=== PATIENT | male | born 1935 | race Caucasian/White ===

== ENCOUNTER → 2018-01-30 09:38 | Outpatient (CLI) | payer MEDICARE, OTHER, SELFPAY ==
[2018-01-30 10:34] LABS: Absolute Neutrophil Count 4.9 X10^3/uL (2.0-7.7); Eosinophil# 0.03 X10^3/uL; Eosinophils% 0.4 % (0-5); Hemoglobin 8.9 g/dl (13.0-16.5); Lymphocyte % 28.9 % (19-41); Mean Corp Hgb Conc 28.7 g/gl (32-36); Mean Corpuscular Hgb 24.7 pg (27.0-32.0); Mean Corpuscular Volume 85.9 fL (80-94); Mean Platelet Vol. 11.9 fl (6.2-12.0); Monocyte# 0.44 X10^3/uL; Monocyte% 5.8 % (0-10); Neutrophil # 4.93 X10^3/uL (2.7-7.7); Neutrophil % 64.6 % (47-70); Platelet Count 142 K/mm3 (150-450); RBC Distribution Width CV 18.2 % (11.6-14.6); Red Blood Count 3.61 M/mm3 (4.6-6.2); White Blood Count 7.6 K/mm3 (4.4-11.0)
[2018-01-30 10:36] LABS: Differential Indicated SCAN CRITERIA MET; POSITIVE COUNT NO; POSITIVE DIFFERENTIAL NO; POSITIVE MORPHOLOGY YES
[2018-01-30 11:08] LABS: AST(SGOT) 15 U/L (15-37); Alanine Aminotransfer ALT/SGPT 18 U/L (16-61); Albumin, Serum 3.4 g/dL (3.2-5.0); Alkaline Phosphatase 119 U/L (45-117); Anion Gap 9 (5-15); BUN 18 mg/dL (7-18); BUN/Creat Ratio 12.2 RATIO (10-20); Calcium,Total 8.7 mg/dL (8.5-10.1); Chloride 105 mmol/L (98-107); Cholesterol 100 mg/dL (200); Creatinine, Serum 1.48 mg/dL (0.70-1.30); EST Glomerular Filtration Rate 49 mL/min (>60); Est Glom Filt Rate - Afr Amer 59 mL/min (>60); Globulin 3.5 g/dL (2.2-4.2); Glucose 89 mg/dL (74-106); High Density Lipoprotein 45 mg/dL; Potassium 4.1 mmol/L (3.5-5.1); Protein, Total 6.9 g/dL (6.4-8.2); Sodium Level 140 mmol/L (136-145); Thyroid Stim Hormone (TSH) 1.59 uIU/mL (0.358-3.74); Triglycerides 62 mg/dL; Very Low Density Lipoprotein 12 mg/dL (5-40)
[2018-01-30 12:04] LABS: Anisocytosis 2+; Hypochromasia 1+; Schistocytes RARE
== END ==
PROVIDERS: Family Provider Family Medicine; PCP Family Medicine; Visit Provider Family Medicine
DX: Z00.01 Encounter for general adult medical examination with abnormal findings (principal); E03.9 Hypothyroidism, unspecified; E78.5 Hyperlipidemia, unspecified
CPT/HCPCS: 36415; 80053; 80061; 84443; 85025

== ENCOUNTER → 2018-02-04 10:37 | Outpatient (CLI) | payer MEDICARE, OTHER, SELFPAY ==
[2018-02-04 12:11] LABS: Absolute Lymphocyte Count 1.74 X10^3/ul (0.83-4.51); Absolute Neutrophil Count 5.9 X10^3/uL (2.0-7.7); Basophil# 0.01 X10^3/uL; Basophil% 0.1 % (0-1); Eosinophil# 0.02 X10^3/uL; Eosinophils% 0.2 % (0-5); Hemoglobin 9.2 g/dl (13.0-16.5); Lymphocyte # 1.74 X10^3/ul (4.0); Lymphocyte % 21.7 % (19-41); Mean Corp Hgb Conc 28.8 g/gl (32-36); Mean Corpuscular Hgb 24.8 pg (27.0-32.0); Mean Corpuscular Volume 86.3 fL (80-94); Mean Platelet Vol. 11.6 fl (6.2-12.0); Monocyte# 0.37 X10^3/uL; Monocyte% 4.6 % (0-10); Neutrophil # 5.87 X10^3/uL (2.7-7.7); Neutrophil % 73.3 % (47-70); Platelet Count 132 K/mm3 (150-450); RBC Distribution Width CV 18.5 % (11.6-14.6); RBC Distribution Width SD 58.2 fl (35.1-43.9); Red Blood Count 3.71 M/mm3 (4.6-6.2)
[2018-02-04 12:15] LABS: Differential Indicated SCAN CRITERIA MET; POSITIVE COUNT NO; POSITIVE DIFFERENTIAL NO; POSITIVE MORPHOLOGY YES
[2018-02-04 12:23] LABS: Vitamin B12 1225 pg/mL (211-911)
[2018-02-04 13:05] LABS: Ferritin 9 ng/mL (26-388); Iron 26 ug/dL (65-175); Iron Binding Capacity,Total 407 ug/dL (250-450); LDH 234 U/L (87-241)
== END ==
PROVIDERS: Family Provider Family Medicine; PCP Family Medicine; Visit Provider Family Medicine
DX: D64.9 Anemia, unspecified (principal)
CPT/HCPCS: 36415; 82607; 82728; 82746; 83540; 83550; 83615; 85025

== ENCOUNTER 2018-02-22 09:20 | Day surgery (SDC) | payer MEDICARE, OTHER, SELFPAY ==
--- NOTE | 2018-02-22 | COLBX_PTH ---
PATIENT: SHIRLEY MCKNIGHT LOC: EN U#:[id number] AGE/SX: 82/M ROOM: RE02/22/[address]: Dr. Jorge Mina MD : 1935 BED: DIS: 02/22/2018 SPEC #: [id number] RECD: 02/22/18 14:34 STATUS: NIURKA DIEGO #: [id number] CHIQUI: 02/22/18 00:[address]: Jorge Mina DEPT: SURGICAL PATHOLOGY RECD BY: Jaziel Mcdonough ENTERED: 02/22/18 14:34 SP TYPE: COLON BX OTHR DR: Dr. Yogesh Carlson DO Tissues: Sigmoid colon biopsy Procedures: Surgery Specimen Level IV HEADER OPERATION: Colonoscopy, EGD ([facility] [place]) PRE-OP DIAGNOSIS: Iron deficiency anemia TISSUE SUBMITTED: Sigmoid colon biopsies MICROSCOPIC DIAGNOSIS Sigmoid colon, biopsy: Chronic active colitis. See microscopic description and comment. SJ:sharon 10/15/18 COMMENT Correlation with clinical, endoscopic findings and appropriate follow up are necessary. MICROSCOPIC DESCRIPTION Slides are reviewed. The specimen shows fragments of colonic mucosa with acute and chronic inflammatory cell infiltrates in the lamina propria, mild glandular distortion, cryptitis, crypt abscesses and lymphoid aggregates. No evidence of dysplasia or granuloma in the submitted specimen. GROSS DESCRIPTION Received in fixative is one container labeled with the patient's name and designated sigmoid colon biopsy. The specimen consists of multiple irregular fragments of light garner soft tissue that in aggregate measure 1.5 x 0.5 x 0.1 cm. The specimen is totally submitted in one cassette. / SJ:sharon 02/22/18 TC:2 CPT: 45570
[2018-02-22 09:43] VITALS: BP 132/70; PULSE 85; RESP 16; TEMP 36.5; O2SAT 100; BMI 25.3
[2018-02-22 12:25] VITALS: BP 107/54; BP 132/70; PULSE 78; RESP 16; TEMP 36.3; O2SAT 100
--- NOTE | 2018-02-22 12:25 | OP.ENDO_ITS ---
Patient Name: Joon Malin Procedure Date: 02/22/2018 11:42 AM Date of : 1935 Age: 82 Procedure: Upper GI endoscopy Indications: Iron deficiency anemia Providers: Jorge Mina MD Referring MD: Jorge Mina MD Medicines: Monitored Anesthesia Care Patient Profile: This is an 82 year old male. Complications: No immediate complications. Procedure: Pre-Anesthesia Assessment: - Prior to the procedure, a History and Physical was performed, and patient medications and allergies were reviewed. The patient's tolerance of previous anesthesia was also reviewed. The risks and benefits of the procedure and the sedation options and risks were discussed with the patient. All questions were answered, and informed consent was obtained. Prior Anticoagulants: The patient has taken no previous anticoagulant or antiplatelet agents. After reviewing the risks and benefits, the patient was deemed in satisfactory condition to undergo the procedure. After obtaining informed consent, the endoscope was passed under direct vision. Throughout the procedure, the patient's blood pressure, pulse, and oxygen saturations were monitored continuously. The gastroscope was introduced through the mouth, and advanced to the second part of duodenum. The upper GI endoscopy was accomplished without difficulty. The patient tolerated the procedure well. Scope In: 11:50:22 AM Scope Out: 11:53:34 AM Total Procedure Duration Time 0 hours 3 minutes 12 seconds Findings: The esophagus was normal. The stomach was normal. The examined duodenum was normal. Impression: - Normal esophagus. - Normal stomach. - Normal examined duodenum. - No specimens collected. Recommendation: - Discharge patient to home. - Resume previous diet. - Continue present medications. Procedure Code(s): --- Professional --- 54839, Esophagogastroduodenoscopy, flexible, transoral; diagnostic, including collection of specimen(s) by brushing or washing, when performed (separate procedure) Diagnosis Code(s): --- Professional --- D50.9, Iron deficiency anemia, unspecified CPT copyright 2017 [employer]. All rights reserved. The codes documented in this report are preliminary and upon warhead maintenance specialist review may be revised to meet current compliance requirements. Jorge Mina MD 02/22/2018 12:24:52 PM This report has been signed electronically. Number of Addenda: 0 Note Initiated On: 02/22/2018 11:42 AM
[2018-02-22 12:30] VITALS: BP 100/59; BP 132/70; PULSE 72; RESP 16; O2SAT 100
--- NOTE | 2018-02-22 12:30 | OP.ENDO_ITS ---
Patient Name: Joon Malin Procedure Date: 02/22/2018 11:56 AM Date of : 1935 Age: 82 Procedure: Colonoscopy Indications: Iron deficiency anemia Providers: Jorge Mina MD Referring MD: Jorge Mina MD Medicines: Monitored Anesthesia Care Patient Profile: This is an 82 year old male. Last Colonoscopy: date unknown. Unable to locate last colonoscopy report. Complications: No immediate complications. Procedure: Pre-Anesthesia Assessment: - Prior to the procedure, a History and Physical was performed, and patient medications and allergies were reviewed. The patient's tolerance of previous anesthesia was also reviewed. The risks and benefits of the procedure and the sedation options and risks were discussed with the patient. All questions were answered, and informed consent was obtained. Prior Anticoagulants: The patient has taken no previous anticoagulant or antiplatelet agents. After reviewing the risks and benefits, the patient was deemed in satisfactory condition to undergo the procedure. After I obtained informed consent, the scope was passed under direct vision. Throughout the procedure, the patient's blood pressure, pulse, and oxygen saturations were monitored continuously. The pediatric colonoscope was introduced through the anus and advanced to the cecum, identified by appendiceal orifice and ileocecal valve. The colonoscopy was performed without difficulty. The patient tolerated the procedure well. The quality of the bowel preparation was adequate. Scope In: 11:58:06 AM Scope Withdrawal Time 0 hours 9 minutes 25 seconds Scope Out: 12:16:41 PM Total Procedure Duration Time 0 hours 18 minutes 35 seconds Findings: Multiple small and large-mouthed diverticula were found in the left colon. There was no evidence of diverticular bleeding. A localized area of moderately erythematous, friable (with contact bleeding) and inflamed mucosa was found in the sigmoid colon. Biopsies were taken with a cold forceps for histology. The exam was otherwise without abnormality on direct and retroflexion views. Impression: - Moderate diverticulosis in the left colon. There was no evidence of diverticular bleeding. - Erythematous, friable (with contact bleeding) and inflamed mucosa in the sigmoid colon. Biopsied. - The examination was otherwise normal on direct and retroflexion views. Recommendation: - Discharge patient to home. - Resume previous diet. - Continue present medications. - Await pathology results. - Repeat colonoscopy date to be determined after pending pathology results are reviewed for surveillance based on pathology results. - Physician's office will call you with pathology results and recommendations for when to repeat colonoscopy. Procedure Code(s): --- Professional --- 14853, Colonoscopy, flexible; with biopsy, single or multiple Diagnosis Code(s): --- Professional --- K63.89, Other specified diseases of intestine K92.2, Gastrointestinal hemorrhage, unspecified K52.9, Noninfective gastroenteritis and colitis, unspecified D50.9, Iron deficiency anemia, unspecified K57.30, Diverticulosis of large intestine without perforation or abscess without bleeding CPT copyright 2017 [employer]. All rights reserved. The codes documented in this report are preliminary and upon health information coder review may be revised to meet current compliance requirements. Jorge Mina MD 02/22/2018 12:29:37 PM This report has been signed electronically. Number of Addenda: 0 Note Initiated On: 02/22/2018 11:56 AM
[2018-02-22 12:35] VITALS: BP 125/68; BP 132/70; PULSE 68; RESP 16; O2SAT 99
[2018-02-22 12:40] VITALS: BP 113/72; BP 132/70; PULSE 64; RESP 16; TEMP 36.3; O2SAT 100
== END 2018-02-22 13:11 | disposition home or self-care (01) ==
LOC: EN 09:20 → AC 09:21
PROVIDERS: Family Provider Family Medicine; PCP Family Medicine; Referring Provider Surgery; Visit Provider Surgery
PROC: 0DJD8ZZ Inspection of Lower Intestinal Tract, Via Natural or Artificial Opening Endoscopic (ICD-10-PCS; CPT 45378; principal; 2018-02-22 10:25)
DX: K57.30 Diverticulosis of large intestine without perforation or abscess without bleeding (principal); D50.9 Iron deficiency anemia, unspecified; K52.9 Noninfective gastroenteritis and colitis, unspecified; K92.2 Gastrointestinal hemorrhage, unspecified; I10 Essential (primary) hypertension; E78.00 Pure hypercholesterolemia, unspecified; E03.9 Hypothyroidism, unspecified; K21.9 Gastro-esophageal reflux disease without esophagitis; F32.9 Major depressive disorder, single episode, unspecified; F41.9 Anxiety disorder, unspecified; Z79.899 Other long term (current) drug therapy; Z87.891 Personal history of nicotine dependence; Z87.19 Personal history of other diseases of the digestive system
CPT/HCPCS: 43235; 45380; 88305; J7120

== ENCOUNTER → 2018-02-25 18:07 | Outpatient (CLI) | payer MEDICARE, OTHER, SELFPAY ==
--- NOTE | 2018-02-25 18:00 | CT_ITS ---
STUDY: CT ABDOMEN AND PELVIS WITH CONTRAST REASON FOR EXAM: Male, 82 years old. Left lower quadrant pain. Colitis. RADIATION DOSAGE (If Supplied By Facility): CTDIvol = ( 17.13 ) mGy, DLP = ( 1543.14 ) mGycm TECHNIQUE: Transaxial images were obtained from the dome of the diaphragm to the symphysis pubis with oral contrast. 100ML ml of Isovue 300 contrast was administered. Sagittal and coronal images were reconstructed. Individualized dose optimization techniques were used for this CT. COMPARISON: None. FINDINGS: There is atelectasis at the lung bases. The visualized portions of the heart and pericardium are within normal limits. There are coronary artery calcifications noted. There are no calcified gallstones present. The liver is within normal limits. There are cysts noted in the liver. There are no suspicious hepatic lesions. The spleen is normal in size. There are calcified granulomata noted in the spleen. There is a subcentimeter hypodensity in the pancreas (image 36 series 2) which may represent an intraductal papillary mucinous neoplasm. The adrenal glands are within normal limits. There are no renal or ureteral stones. There is no hydronephrosis. There are no focal renal lesions. There is a urinary bladder diverticulum noted along the left bladder wall. There is a moderate hiatal hernia. There is no bowel obstruction. There is bowel wall thickening the sigmoid colon which is consistent with colitis. The appendix is not visualized, but there are no findings to suggest acute appendicitis. The aorta is normal in caliber. There is no abdominal or pelvic free air, free fluid, fluid collection or lymphadenopathy. There are no destructive osseous lesions. CT/Abdomen/Pelvis WITH Contrast IMPRESSION: Sigmoid colitis. No free air, free fluid or fluid collection. No bowel obstruction. Moderate hiatal hernia. Urinary bladder diverticulum. Subcentimeter hypodensity in the body of the pancreas which may represent an IPMN. Coronary artery disease. Electronically Signed: Skyler Guajardo, at 19:34 EDT Tel , Service support ,
== END ==
PROVIDERS: Family Provider Family Medicine; PCP Family Medicine; Visit Provider Surgery
DX: K52.9 Noninfective gastroenteritis and colitis, unspecified (principal)
CPT/HCPCS: 74177; Q9967

== ENCOUNTER → 2018-03-04 13:45 | Outpatient (CLI) | payer MEDICARE, OTHER, SELFPAY ==
[2018-03-04 17:12] LABS: Absolute Lymphocyte Count 2.61 X10^3/ul (0.83-4.51); Absolute Neutrophil Count 6.9 X10^3/uL (2.0-7.7); Basophil# 0.01 X10^3/uL; Basophil% 0.1 % (0-1); Eosinophil# 0.01 X10^3/uL; Eosinophils% 0.1 % (0-5); Hematocrit 33.9 % (40-54); Hemoglobin 9.6 g/dl (13.0-16.5); Lymphocyte # 2.61 X10^3/ul (4.0); Lymphocyte % 26.1 % (19-41); Mean Corp Hgb Conc 28.3 g/gl (32-36); Mean Corpuscular Hgb 25.3 pg (27.0-32.0); Mean Corpuscular Volume 89.2 fL (80-94); Mean Platelet Vol. 12.1 fl (6.2-12.0); Monocyte# 0.47 X10^3/uL; Monocyte% 4.7 % (0-10); Neutrophil # 6.89 X10^3/uL (2.7-7.7); Neutrophil % 68.8 % (47-70); Platelet Count 219 K/mm3 (150-450); RBC Distribution Width CV 19.4 % (11.6-14.6); RBC Distribution Width SD 62.2 fl (35.1-43.9)
[2018-03-04 17:20] LABS: POSITIVE COUNT NO; POSITIVE DIFFERENTIAL NO; POSITIVE MORPHOLOGY NO
== END ==
PROVIDERS: Family Provider Family Medicine; PCP Family Medicine; Referring Provider Surgery; Visit Provider Surgery
DX: D64.9 Anemia, unspecified (principal)
CPT/HCPCS: 36415; 85025

== ENCOUNTER → 2018-04-15 11:18 | Outpatient (CLI) | payer MEDICARE, OTHER, SELFPAY ==
[2018-04-15 17:38] LABS: Absolute Lymphocyte Count 2.08 X10^3/ul (0.83-4.51); Absolute Neutrophil Count 6.1 X10^3/uL (2.0-7.7); Basophil# 0.01 X10^3/uL; Basophil% 0.1 % (0-1); Differential Indicated SCAN CRITERIA MET; Eosinophil# 0.04 X10^3/uL; Eosinophils% 0.5 % (0-5); Hematocrit 36.2 % (40-54); Hemoglobin 10.6 g/dl (13.0-16.5); Lymphocyte # 2.08 X10^3/ul (4.0); Mean Corp Hgb Conc 29.3 g/gl (32-36); Mean Corpuscular Volume 98.9 fL (80-94); Mean Platelet Vol. 12.9 fl (6.2-12.0); Monocyte# 0.41 X10^3/uL; Monocyte% 4.7 % (0-10); Neutrophil # 6.11 X10^3/uL (2.7-7.7); Neutrophil % 70.5 % (47-70); POSITIVE COUNT NO; POSITIVE DIFFERENTIAL NO; POSITIVE MORPHOLOGY YES; Platelet Count 115 K/mm3 (150-450); RBC Distribution Width CV 22.1 % (11.6-14.6); Red Blood Count 3.66 M/mm3 (4.6-6.2); White Blood Count 8.7 K/mm3 (4.4-11.0)
[2018-04-15 17:53] LABS: Differential Comment SCANNED
[2018-04-15 18:55] LABS: Ferritin 26 ng/mL (26-388); Iron 118 ug/dL (65-175)
--- OUTSIDE RECORDS SUMMARY | 2018-06-08 17:20 | XMS RPT_ITS ---
:1935 Author Organization OHIP Support Name Relationship Address Phone RONNA RUBIO Unavailable [address] + [place] [address] HEAVEN MALIN Unavailable [address] + [place] [address] R Unavailable Unavailable Unavailable LOCOHODA RONNA Unavailable [address] + [place] [address] HEAVEN MALIN Unavailable [address] + [place] [address] R Unavailable Unavailable Unavailable LOCOHODA RONNA Unavailable [address] + [place] [address] REYMUNDO MALNIE Unavailable [address] + [place] [address] R Unavailable Unavailable Unavailable JOANNE RONNA Unavailable . + [place] [address] HEAVEN MALIN Unavailable [address] + [place] [address] R Unavailable Unavailable Unavailable JOANNE, RONNA Unavailable Unavailable + TOMHEAVEN MURGUIA Unavailable [address] + [place] [address] R Unavailable Unavailable Unavailable LOCOHODA, RONNA Unavailable Unavailable + HEAVEN MALIN Unavailable [address] + [place] [address] R Unavailable Unavailable Unavailable JOANNE, RONNA Unavailable Unavailable + TOMREYMUNDO MURGUIAE Unavailable [address] + [place] [address] R Unavailable Unavailable Unavailable MOWRER, W Unavailable [address] + [place] [address] R Unavailable Unavailable Unavailable MOWRER, W Unavailable [address] + [place] [address] R Unavailable Unavailable Unavailable MOWRER, W Unavailable [address] [facility] + [place] [address] R Unavailable Unavailable Unavailable Care Team Providers Name Role Phone Yogesh Carlson Attending Unavailable Yogesh Carlson Referring Unavailable AldoYogesh lee Primary Care Unavailable Yogesh Carlson Attending Unavailable Yogesh Carlson Primary Care Unavailable Calevelyn, Jorge Attending Unavailable Yogesh Carlson Referring Unavailable Calabretta, Jorge Attending Unavailable Calabrwesley, Jorge Referring Unavailable Yogesh Carlson Primary Care Unavailable Calabretta, Jorge Attending Unavailable Aldo, Yogesh Primary Care Unavailable Calabretta, Jorge Attending Unavailable Calabretta, Jorge Attending Unavailable Yogesh Carlson Referring Unavailable Calabretta, Jorge Attending Unavailable Calabrwesley, Jorge Referring Unavailable Yogesh Carlson Primary Care Unavailable Calabretta, Jorge Attending Unavailable Aldo, Yogesh Referring Unavailable Yogesh Carlson Attending Unavailable Aldo, Yogesh Primary Care Unavailable PROBLEMS PROBLEMS DATE TYPE CONDITION / CODE ATTENDING STATUS SOURCE 02/26/2018 Unknown K52.9 - Noninfective Cal[place], Active [place] gastroenteritis and [facility] colitis, unspecified / Hospital K52.9(ICD-10) Repository 02/26/2018 Unknown D50.9 - Iron Calabretta, Active [place] deficiency anemia, [facility] unspecified / Hospital D50.9(ICD-10) Repository 02/26/2018 Unknown K92.2 - Cal[place]retta, Active [facility] hemorrhage, Hospital unspecified / Repository K92.2(ICD-10) 02/26/2018 Unknown K63.89 - Other [place]ta, Active [place] specified diseases of [facility] intestine / Hospital K63.89(ICD-10) Repository 02/26/2018 Unknown K57.30 - [place], Active [place] Diverticulosis of [facility] large intestine Hospital without perforation or Repository abscess without bleeding / K57.30(ICD-10) 01/30/2018 Unknown Z00.01 - Encounter for Yogesh Carlson Active [place] [facility] examination with Hospital abnormal findings / Repository Z00.01(ICD-10) 01/30/2018 Unknown E03.9 - Yogesh Carlson Active [place] Hypothyroidism, Community unspecified / Hospital E03.9(ICD-10) Repository 01/30/2018 Unknown E78.5 - Yogesh Carlson Active [place] Hyperlipidemia, Community unspecified / Hospital E78.5(ICD-10) Repository PROCEDURES PROCEDURES No Procedure Records FoundRESULTS RESULTS CBC W/DIFF, AUTOMATED Collected: 04/15/2018 Status: F Source: [place] 11:20 AM [facility] [place] CODE TESTS RESULT OUT OF RANGE REFERENCE UNITS LAB L100.1000 4.4-11.0 K/mm3 Normal WBC 8.7 LAB L100.1200 4.6-6.2 M/mm3 Low RBC 3.66 LAB L100.1300 13.0-16.5 g/dl Low HGB 10.6 LAB L100.1400 40-54 % Low HCT 36.2 LAB L100.1500 80-94 fL High MCV 98.9 LAB L100.1600 27.0-32.0 pg Normal MCH 29.0 LAB L100.1700 32-36 g/gl Low MCHC 29.3 LAB L100.1810 11.6-14.6 % High RDW CV 22.1 LAB L100.1820 35.1-43.9 fl High RDW SD 77.0 LAB L100.1900 150-450 K/mm3 Low PLT 115 LAB L100.2000 6.2-12.0 fl High MPV 12.9 LAB L100.2100 47-70 % High NEUT% 70.5 LAB L100.2200 19-41 % Normal LY% 24.0 LAB L100.2300 0-10 % Normal MONO% 4.7 LAB L100.2400 0-5 % Normal EO% 0.5 LAB L100.2500 0-1 % Normal BASO% 0.1 LAB L100.2550 0.0-0.9 % Normal IM GRAN % 0.200 Result Comment: IG% - Immature Granulocytes (promyelocytes, myelocytes and metamyelocytes) > 1% indicates that a LEFT SHIFT is Present. LAB L100.2620 2.0-7.7 X10 3/uL Normal Absolute Neut 6.1 LAB L100.2720 0.83-4.51 X10 3/ul Normal Absolute Lymph 2.08 LAB L100.4500 Normal SMEAR COMMENT SCANNED Result Comment: 2+ ANISOCYTOSIS Performed By: #### L100.0100 #### [facility] [place], [address] IRON Collected: 04/15/2018 Status: F Source: [place] 11:20 AM [facility] [place] TYPE CODE TESTS RESULT OUT OF RANGE REFERENCE UNITS LAB L503.6150 65-175 ug/dL Normal IRON 118 Performed By: #### L503.6150, L503.6550 #### [facility] [address] [place], [address] FERRITIN Collected: 04/15/2018 Status: F Source: [place] 11:20 AM [facility] [place] TYPE CODE TESTS RESULT OUT OF RANGE REFERENCE UNITS LAB L503.6550 26-388 ng/mL Normal FERRITIN 26 Performed By: #### L503.6150, L503.6550 #### [facility] [address] [place], [address] SURGERY VISIT REPORT Observed: 03/06/2018 Status: F Source: [place] 10:11 AM [facility] [place] [facility] [address] [place] [address] OFFICE VISIT Date of Service: 02/27/18 MR#: [id number] Acct: [id number] Name: SHIRLEY MALIN Nabeel Rep #: [id number] : 1935 Provider: Jorge Mina MD Age/Sex: 82/M Location: [facility] Status: Signed Intake Intake Visit Reasons: f/u scope and CT Reed Dipper Required: No Is patient in pain?: No Allergies cefdinir [From Omnicef] Allergy (Verified 02/27/18 10:40) Rash Medications Atorvastatin Calcium 80 mg PO QHS 11/17/16 [History Confirmed 02/27/18] Cholecalciferol (Vitamin D3) [Vitamin D3] 2,000 unit PO DAILY 11/17/16 [History Confirmed 02/27/18] Citalopram [Celexa] 20 mg PO DAILY 11/17/16 [History Confirmed 02/27/18] Donepezil HCl [Aricept] 10 mg PO QHS 11/17/16 [History Confirmed 02/27/18] Levothyroxine Sodium [Levoxyl] 125 mcg PO DAILY 11/17/16 [History Confirmed 02/27/18] Omeprazole [Prilosec] 40 mg PO DAILY 11/17/16 [History Confirmed 02/27/18] Metoprolol(XL)Succ [Toprol Xl (Beta [place])] 50 mg PO DAILY 11/24/16 [History Confirmed 02/27/18] dibucaine 1 % rectal ointment 1 applic RC TID PRN #56.7 g 02/27/18 [Rx Confirmed 02/27/18] ferrous sulfate 325 mg (65 mg iron) tablet 325 mg PO DAILY tab 03/06/18 [History Confirmed 03/06/18] PFSH Medical History Anemia (Acute) GERD (gastroesophageal reflux disease) (Acute) Heme positive stool (Acute) Hypothyroid (Acute) hypercholesterolemia (Acute) HTN (hypertension) (Chronic) Surgical History S/P TURP (Acute) Family History Mother Breast cancer Father Heart disease Social History Smoking Status: Former smoker alcohol intake: never HPI HPI HPI: SHIRLEY MALIN, is a 82 M who presents to the office today for follow-up after colonoscopy. Exam Const General: cooperative Orientation: alert, oriented x3 Resp Effort AND Inspection: normal respiratory effort Auscultation: clear to auscultation bilaterally Cardio Rate: regular rate Rhythm: regular rhythm GI Inspection: non-distended Palpation: soft, nontender Assessment AND Plan Problems 1. Colitis K52.9 Plan 1. Patient has colitis and I explained sigmoid colectomy to him and he is going to discuss this with his family. Orders Orders: Medications New: Coding Level of Care Code Global Post Op Diagnoses Colitis K52.9 03/06/18 1011 <Electronically signed by Jorge Mina MD> Date Jorge Mina MD Cosigner Signature: Date (if applicable) CC: SURGERY VISIT REPORT Observed: 03/06/2018 Status: F Source: [place] 10:06 AM [facility] [place] [place] [facility] [address] [place] [address] OFFICE VISIT Date of Service: 03/06/18 MR#: [id number] Acct: [id number] Name: SHIRLEY MALIN Rep #: [id number] : 1935 Provider: Jorge Mina MD Age/Sex: 82/M Location: [facility] Status: Signed Intake Intake Visit Reasons: FU scope and CT Chief Complaint: S/P TURP Reed Dipper Required: No Accompanied by: Is patient in pain?: No Allergies cefdinir [From Omnicef] Allergy (Verified 02/27/18 10:40) Rash Medications Atorvastatin Calcium 80 mg PO QHS 11/17/16 [History Confirmed 02/27/18] Cholecalciferol (Vitamin D3) [Vitamin D3] 2,000 unit PO DAILY 11/17/16 [History Confirmed 02/27/18] Citalopram [Celexa] 20 mg PO DAILY 11/17/16 [History Confirmed 02/27/18] Donepezil HCl [Aricept] 10 mg PO QHS 11/17/16 [History Confirmed 02/27/18] Levothyroxine Sodium [Levoxyl] 125 mcg PO DAILY 11/17/16 [History Confirmed 02/27/18] Omeprazole [Prilosec] 40 mg PO DAILY 11/17/16 [History Confirmed 02/27/18] Metoprolol(XL)Succ [Toprol Xl (Beta Israel)] 50 mg PO DAILY 11/24/16 [History Confirmed 02/27/18] dibucaine 1 % rectal ointment 1 applic RC TID PRN #56.7 g 02/27/18 [Rx Confirmed 02/27/18] ferrous sulfate 325 mg (65 mg iron) tablet 325 mg PO DAILY tab 03/06/18 [History Confirmed 03/06/18] PFSH Medical History Anemia (Acute) GERD (gastroesophageal reflux disease) (Acute) Heme positive stool (Acute) Hypothyroid (Acute) hypercholesterolemia (Acute) HTN (hypertension) (Chronic) Surgical History S/P TURP (Acute) Family History Mother Breast cancer Father Heart disease Social History Smoking Status: Former smoker alcohol intake: never HPI HPI HPI: SHIRLEY MALIN, is a 82 M who presents to the office today for evaluation after colonoscopy. The patient recently had a colonoscopy which showed stricturing of the sigmoid colon. The patient is not reporting he is having any left lower quadrant pain or blood in his stool. ROS General General: No weight change or fatigue Cardio Cardiovascular: No murmur, pacemaker or heart disease Psych Psychiatric: No depression Resp Respiratory: No shortness of breath, No sleep apnea Gastro Gastrointestinal: No abdominal pain, No nausea or vomiting, No diarrhea, No constipation, No blood in stool Exam Const General: cooperative Orientation: alert, oriented x3 Resp Effort AND Inspection: normal respiratory effort Auscultation: clear to auscultation bilaterally Cardio Rate: regular rate Rhythm: regular rhythm Heart Sounds: no murmurs GI Inspection: non-distended Palpation: soft, nontender Assessment AND Plan Problems 1. Colitis K52.9 Plan 1. The patient has colitis of his sigmoid colon on CT scan. On colonoscopy the patient had tightening of the sigmoid colon with friability of the mucosa. I explained this to the patient and discussed possible sigmoid colectomy with him and his . I explained that this may be the cause of his anemia as the mucosa is friable. I repeated a hemoglobin and in the last month his hemoglobin has risen from 9.2-9.6 and he had not been taking his iron pills. His baseline seems to be around 12 which is what he was at the last 2 years in a row. 2. I explained that the sigmoid colon appeared strictured on the CAT scan and it was tight on colonoscopy but comparing this to a colonoscopy that was done 7 years ago it appears the same. The patient was concerned that this could fully obstruction I told him that I did not know if this was going to happen. I explained that it may stricture and causing complete obstruction necessitating diverting ostomy in the future but since it is the same amount of tightness as 7 years ago I am unsure if this will progress or not. I explained the risks of surgery including bleeding, infection, ureteral injury, injury to surrounding organs. The patient discussed this with his family and kids and at this time he does not want to proceed with surgery. 3. I will discuss with Dr. Carlson, patient's PCP. I will discuss repeating hemoglobin and that he will be starting his iron treatment. If his anemia worsens or if he begins to have worsening left lower quadrant pain or signs of partial obstruction I would recommend sigmoid colectomy. Jorge Mina MD Pager: [facility] [address] [place] [address], [address] [place] [address] Office: Coding Level of Care Code Off vis,est,level 3 Diagnoses Colitis K52.9 03/06/18 1006 <Electronically signed by Jorge Mina MD> Date Jorge Mina MD Cosigner Signature: Date (if applicable) CC: Yogesh Carlson DO CBC W/DIFF, AUTOMATED Collected: 03/04/2018 Status: F Source: [place] 1:53 PM [facility] [place] [place] TYPE CODE TESTS RESULT OUT OF RANGE REFERENCE UNITS LAB L100.1000 4.4-11.0 K/mm3 Normal WBC 10.0 LAB L100.1200 4.6-6.2 M/mm3 Low RBC 3.80 LAB L100.1300 13.0-16.5 g/dl Low HGB 9.6 LAB L100.1400 40-54 % Low HCT 33.9 LAB L100.1500 80-94 fL Normal MCV 89.2 LAB L100.1600 27.0-32.0 pg Low MCH 25.3 LAB L100.1700 32-36 g/gl Low MCHC 28.3 LAB L100.1810 11.6-14.6 % High RDW CV 19.4 LAB L100.1820 35.1-43.9 fl High RDW SD 62.2 LAB L100.1900 150-450 K/mm3 Normal PLT 219 LAB L100.2000 6.2-12.0 fl High MPV 12.1 LAB L100.2100 47-70 % Normal NEUT% 68.8 LAB L100.2200 19-41 % Normal LY% 26.1 LAB L100.2300 0-10 % Normal MONO% 4.7 LAB L100.2400 0-5 % Normal EO% 0.1 LAB L100.2500 0-1 % Normal BASO% 0.1 LAB L100.2550 0.0-0.9 % Normal IM GRAN % 0.200 Result Comment: IG% - Immature Granulocytes (promyelocytes, myelocytes and metamyelocytes) > 1% indicates that a LEFT SHIFT is Present. LAB L100.2620 2.0-7.7 X10 3/uL Normal Absolute Neut 6.9 LAB L100.2720 0.83-4.51 X10 3/ul Normal Absolute Lymph 2.61 Performed By: #### L100.0100 #### [facility] [address] [facility] [place], [address] ABDOMEN/PELVIS WITH Observed: 02/25/2018 Status: F Source: [place] CONTRAST 6:01 PM [facility] [place] [facility] Imaging Services [address] [place] [address] Abdomen/Pelvis WITH Contrast MR#: [id number] Acct: [id number] Name: DEVYNDANNIELLESHIRLEY MURGUIA Nabeel Rep #: [id number] : 1935 M 82 From: Skyler Guajardo MD PCP: Yogesh Carlson DO Status: REG CLI Study: Abdomen/Pelvis WITH Contrast Date of Exam: 02/25/18 Exam# [id number] Ordering Dr: Jorge Mina MD STUDY: CT ABDOMEN AND PELVIS WITH CONTRAST REASON FOR EXAM: Male, 82 years old. Left lower quadrant pain. Colitis. RADIATION DOSAGE (If Supplied By Facility): CTDIvol = ( 17.13 ) mGy, DLP = ( 1543.14 ) mGycm TECHNIQUE: Transaxial images were obtained from the dome of the diaphragm to the symphysis pubis with oral contrast. 100ML ml of Isovue 300 contrast was administered. Sagittal and coronal images were reconstructed. Individualized dose optimization techniques were used for this CT. COMPARISON: None. FINDINGS: There is atelectasis at the lung bases. The visualized portions of the heart and pericardium are within normal limits. There are coronary artery calcifications noted. There are no calcified gallstones present. The liver is within normal limits. There are cysts noted in the liver. There are no suspicious hepatic lesions. The spleen is normal in size. There are calcified granulomata noted in the spleen. There is a subcentimeter hypodensity in the pancreas (image 36 series 2) which may represent an intraductal papillary mucinous neoplasm. The adrenal glands are within normal limits. There are no renal or ureteral stones. There is no hydronephrosis. There are no focal renal lesions. There is a urinary bladder diverticulum noted along the left bladder wall. There is a moderate hiatal hernia. There is no bowel obstruction. There is bowel wall thickening the sigmoid colon which is consistent with colitis. The appendix is not visualized, but there are no findings to suggest acute appendicitis. The aorta is normal in caliber. There is no abdominal or pelvic free air, free fluid, fluid collection or lymphadenopathy. There are no destructive osseous lesions. CT/Abdomen/Pelvis WITH Contrast IMPRESSION: Sigmoid colitis. No free air, free fluid or fluid collection. No bowel obstruction. Moderate hiatal hernia. Urinary bladder diverticulum. Subcentimeter hypodensity in the body of the pancreas which may represent an IPMN. Coronary artery disease. Electronically Signed: Skyler Guajardo, at 19:34 EDT Tel , Service support , CC: Jorge Mina MD; Yogesh Carlson DO Private Tutor: Signed OPERATIVE REPORT - Observed: 02/22/2018 Status: F Source: [place] ENDOSCOPY 12:30 PM [facility] [place] [facility] Medical Records Department [address] [place] [address] Operative Report - Endoscopy MR#: [id number] Acct: [id number] Name: SHIRLEY MALIN Rep #: [id number] : 1935 82 From: Jorge Mina MD PCP: Yogesh Carlson DO Status: REG [facility] Patient Name: Shirley Malin Procedure Date: 02/22/2018 11:56 AM Date of : 1935 Age: 82 Procedure: Colonoscopy Indications: Iron deficiency anemia Providers: Jorge Mina MD Referring MD: Jorge Mina MD Medicines: Monitored Anesthesia Care Patient Profile: This is an 82 year old male. Last Colonoscopy: date unknown. Unable to locate last colonoscopy report. Complications: No immediate complications. Procedure: Pre-Anesthesia Assessment: - Prior to the procedure, a History and Physical was performed, and patient medications and allergies were reviewed. The patient's tolerance of previous anesthesia was also reviewed. The risks and benefits of the procedure and the sedation options and risks were discussed with the patient. All questions were answered, and informed consent was obtained. Prior Anticoagulants: The patient has taken no previous anticoagulant or antiplatelet agents. After reviewing the risks and benefits, the patient was deemed in satisfactory condition to undergo the procedure. After I obtained informed consent, the scope was passed under direct vision. Throughout the procedure, the patient's blood pressure, pulse, and oxygen saturations were monitored continuously. The pediatric colonoscope was introduced through the anus and advanced to the cecum, identified by appendiceal orifice and ileocecal valve. The colonoscopy was performed without difficulty. The patient tolerated the procedure well. The quality of the bowel preparation was adequate. Scope In: 11:58:06 AM Scope Withdrawal Time 0 hours 9 minutes 25 seconds Scope Out: 12:16:41 PM Total Procedure Duration Time 0 hours 18 minutes 35 seconds Findings: Multiple small and large-mouthed diverticula were found in the left colon. There was no evidence of diverticular bleeding. A localized area of moderately erythematous, friable (with contact bleeding) and inflamed mucosa was found in the sigmoid colon. Biopsies were taken with a cold forceps for histology. The exam was otherwise without abnormality on direct and retroflexion views. Impression: - Moderate diverticulosis in the left colon. There was no evidence of diverticular bleeding. - Erythematous, friable (with contact bleeding) and inflamed mucosa in the sigmoid colon. Biopsied. - The examination was otherwise normal on direct and retroflexion views. Recommendation: - Discharge patient to home. - Resume previous diet. - Continue present medications. - Await pathology results. - Repeat colonoscopy date to be determined after pending pathology results are reviewed for surveillance based on pathology results. - Physician's office will call you with pathology results and recommendations for when to repeat colonoscopy. Procedure Code(s): --- Professional --- 60702, Colonoscopy, flexible; with biopsy, single or multiple Diagnosis Code(s): --- Professional --- K63.89, Other specified diseases of intestine K92.2, Gastrointestinal hemorrhage, unspecified K52.9, Noninfective gastroenteritis and colitis, unspecified D50.9, Iron deficiency anemia, unspecified K57.30, Diverticulosis of large intestine without perforation or abscess without bleeding CPT copyright 2017 [employer]. All rights reserved. The codes documented in this report are preliminary and upon pipe fitter helper review may be revised to meet current compliance requirements. Jorge Mina MD 02/22/2018 12:29:37 PM This report has been signed electronically. Number of Addenda: 0 Note Initiated On: 02/22/2018 11:56 AM 02/22/18 1230 Date Jorge Mina MD Cosigner Signature: Date (if indicated) CC: Jorge Mina MD; Yogesh Carlson DO Date Dictated: 02/22/18 1156 Date Transcribed: Private Tutor: MANDEEP Signed OPERATIVE REPORT - Observed: 02/22/2018 Status: F Source: [place] ENDOSCOPY 12:25 PM [facility] Medical Records Department [address] [place] [id number] Operative Report - Endoscopy MR#: [id number] Acct: [id number] Name: SHIRLEY MALIN Rep #: [id number] : 1935 82 From: Jorge Mina MD PCP: Yogesh Carlson DO Status: REG [facility] Patient Name: Shirley Malin Procedure Date: 02/22/2018 11:42 AM Date of : 1935 Age: 82 Procedure: Upper GI endoscopy Indications: Iron deficiency anemia Providers: Jorge Mina MD Referring MD: Jorge Mina MD Medicines: Monitored Anesthesia Care Patient Profile: This is an 82 year old male. Complications: No immediate complications. Procedure: Pre-Anesthesia Assessment: - Prior to the procedure, a History and Physical was performed, and patient medications and allergies were reviewed. The patient's tolerance of previous anesthesia was also reviewed. The risks and benefits of the procedure and the sedation options and risks were discussed with the patient. All questions were answered, and informed consent was obtained. Prior Anticoagulants: The patient has taken no previous anticoagulant or antiplatelet agents. After reviewing the risks and benefits, the patient was deemed in satisfactory condition to undergo the procedure. After obtaining informed consent, the endoscope was passed under direct vision. Throughout the procedure, the patient's blood pressure, pulse, and oxygen saturations were monitored continuously. The gastroscope was introduced through the mouth, and advanced to the second part of duodenum. The upper GI endoscopy was accomplished without difficulty. The patient tolerated the procedure well. Scope In: 11:50:22 AM Scope Out: 11:53:34 AM Total Procedure Duration Time 0 hours 3 minutes 12 seconds Findings: The esophagus was normal. The stomach was normal. The examined duodenum was normal. Impression: - Normal esophagus. - Normal stomach. - Normal examined duodenum. - No specimens collected. Recommendation: - Discharge patient to home. - Resume previous diet. - Continue present medications. Procedure Code(s): --- Professional --- 93042, Esophagogastroduodenoscopy, flexible, transoral; diagnostic, including collection of specimen(s) by brushing or washing, when performed (separate procedure) Diagnosis Code(s): --- Professional --- D50.9, Iron deficiency anemia, unspecified CPT copyright 2017 [employer]. All rights reserved. The codes documented in this report are preliminary and upon pipe fitter helper review may be revised to meet current compliance requirements. Jorge Mina MD 02/22/2018 12:24:52 PM This report has been signed electronically. Number of Addenda: 0 Note Initiated On: 02/22/2018 11:42 AM 02/22/18 1224 Date Jorge Mina MD Cosigner Signature: Date (if indicated) CC: Jorge Mina MD; Yogesh Aldo DO Date Dictated: 02/22/18 1142 Date Transcribed: Private Tutor: AC Signed COLON BIOPSY (CHOOSE Observed: 02/22/2018 Status: F Source: [place] SITE) 12:00 AM [facility] Patient: SHIRLEY MALIN : 1935 (82/M) Acct Num: [id number] Phys: Keeley CRUZ,Jorge Unit Num: [id number] Loc: EN Specimen: [id number] Received: 02/22/18 - 1434 Spec Type: COLON BX TISSUES 1 TISSUES: Sigmoid colon biopsy COMMENT Correlation with clinical, endoscopic findings and appropriate follow up are necessary. GROSS DESCRIPTION Received in fixative is one container labeled with the patient's name and designated sigmoid colon biopsy. The specimen consists of multiple irregular fragments of light garner soft tissue that in aggregate measure 1.5 x 0.5 x 0.1 cm. The specimen is totally submitted in one cassette. / SJ:sharon 02/22/18 TC:2 CPT: 71863 HEADER OPERATION: Colonoscopy, EGD ([facility]) PRE-OP DIAGNOSIS: Iron deficiency anemia TISSUE SUBMITTED: Sigmoid colon biopsies MICROSCOPIC DESCRIPTION Slides are reviewed. The specimen shows fragments of colonic mucosa with acute and chronic inflammatory cell infiltrates in the lamina propria, mild glandular distortion, cryptitis, crypt abscesses and lymphoid aggregates. No evidence of dysplasia or granuloma in the submitted specimen. MICROSCOPIC DIAGNOSIS Sigmoid colon, biopsy: Chronic active colitis. See microscopic description and comment. SJ:sharon 02/25/18 Signed Siddhartha Allan 02/25/18 <signature on file> Performed By: #### PCOLBX #### [facility] [address] [place], [address] SURGERY VISIT REPORT Observed: 02/18/2018 Status: F Source: FLOM 3:05 PM [facility] [address] [place] [address] OFFICE VISIT Date of Service: 02/18/18 MR#: [id number] Acct: [id number] Name: SHIRLEY MALIN Rep #: [id number] : 1935 Provider: Jorge Mina MD Age/Sex: 82/M Location: [facility] Status: Signed Intake Vital Signs02/18/18 Height 5 ft 7 in 02/18/18 Weight: 168 lb 02/18/18 Body Mass Index (BMI) 26.3 Intake Visit Reasons: anemia and positive hemo test Reed Dipper Required: No Is patient in pain?: No Allergies cefdinir [From Omnicef] Allergy (Verified 02/18/18 14:32) Rash Medications Atorvastatin Calcium 80 mg PO QHS 11/17/16 [History Confirmed 02/18/18] Cholecalciferol (Vitamin D3) [Vitamin D3] 2,000 unit PO DAILY 11/17/16 [History Confirmed 02/18/18] Citalopram [Celexa] 20 mg PO DAILY 11/17/16 [History Confirmed 02/18/18] Donepezil HCl [Aricept] 5 mg PO QHS 11/17/16 [History Confirmed 02/18/18] Levothyroxine Sodium [Levoxyl] 125 mcg PO DAILY 11/17/16 [History Confirmed 02/18/18] Omeprazole [Prilosec] 40 mg PO DAILY 11/17/16 [History Confirmed 02/18/18] Phenazopyridine [Pyridium] 100 mg PO TID PRN PRN 11/17/16 [History Confirmed 02/18/18] Metoprolol(XL)Succ [Toprol Xl (Beta Israel)] 50 mg PO DAILY 11/24/16 [History Confirmed 02/18/18] Ciprofloxacin [Cipro] 500 mg PO BID #14 tab 11/27/16 [Rx Confirmed 02/18/18] PFSH Medical History Anemia (Acute) GERD (gastroesophageal reflux disease) (Acute) Heme positive stool (Acute) Hypothyroid (Acute) hypercholesterolemia (Acute) HTN (hypertension) (Chronic) Surgical History S/P TURP (Acute) Family History Mother Breast cancer Father Heart disease Social History Smoking Status: Former smoker alcohol intake: never HPI HPI HPI: SHIRLEY MALIN, is a 82 M who presents to the office today for iron deficiency anemia. The patient notes he recently had a hemoglobin of 9.2. He says he does not know but he does not believe he is ever been anemic. He says he had a colonoscopy about [address] Singleton. The patient reports he is having no abdominal pain. He is not having any nausea or vomiting. He is having no blood in his stool. He has no family history of colon cancer. ROS General General: No weight change or fatigue Cardio Cardiovascular: Yes heart attack; no murmur, pacemaker, heart disease, atrial fibrillation, high blood pressure, heart stent, palpitations, shortness of breat with exertion or chest pain Psych Psychiatric: Yes anxiety; no depression Resp Respiratory: No shortness of breath, No sleep apnea, No cough, No COPD, No asthma, No emphysema, No wheezing Gastro Gastrointestinal: No abdominal pain, No nausea or vomiting, Yes diarrhea, No constipation, No blood in stool, Yes acid reflux, Yes hemorrhoids, No ulcers, No gallbladder problem, No black,tarry stools Angel Hematologic: Yes blood thinners, Yes anemia Exam Const General: cooperative Orientation: alert, oriented x3 Resp Effort AND Inspection: normal respiratory effort Auscultation: clear to auscultation bilaterally Cardio Rate: regular rate Rhythm: regular rhythm Heart Sounds: no murmurs GI Inspection: non-distended Palpation: soft, nontender Assessment AND Plan Problems 1. Iron deficiency anemia, unspecified iron deficiency anemia type D50.9 Plan 1. The patient is having iron deficiency anemia. There is no explanation for his blood loss. He had a colonoscopy 7 years ago but does not remember the results. I will get his records. The patient has been on aspirin for very long time but he is also on a PPI. I would recommend an upper scope at the same time to rule out malignancy. Plan for EGD and colonoscopy. 2. I explained endoscopy in detail to the patient. I explained the risks including but not limited to stroke or heart attack with anesthesia, perforation of the GI tract, bleeding, infection. I explained that any of these could necessitate further emergency surgery. The patient understands and all questions were answered sufficiently. The patient wishes to proceed with procedure. Jorge Mina MD Pager: [facility] [address] [place] [address], [address] [place] [address] Office: Orders Orders: Coding Level of Care Code Off vis,new,level 3 Diagnoses Iron deficiency anemia, unspecified iron deficiency anemia type D50.9 Iron deficiency anemia type: unspecified iron deficiency 02/18/18 1505 <Electronically signed by Jorge Mina MD> Date Jorge Mina MD Cosigner Signature: Date (if applicable) CC: Yogesh Carlson DO CBC W/DIFF, AUTOMATED Collected: 02/04/2018 Status: F Source: FLOM 10:39 AM [facility] [place] TYPE CODE TESTS RESULT OUT OF RANGE REFERENCE UNITS LAB L100.1000 4.4-11.0 K/mm3 Normal WBC 8.0 LAB L100.1200 4.6-6.2 M/mm3 Low RBC 3.71 LAB L100.1300 13.0-16.5 g/dl Low HGB 9.2 LAB L100.1400 40-54 % Low HCT 32.0 LAB L100.1500 80-94 fL Normal MCV 86.3 LAB L100.1600 27.0-32.0 pg Low MCH 24.8 LAB L100.1700 32-36 g/gl Low MCHC 28.8 LAB L100.1810 11.6-14.6 % High RDW CV 18.5 LAB L100.1820 35.1-43.9 fl High RDW SD 58.2 LAB L100.1900 150-450 K/mm3 Low PLT 132 LAB L100.2000 6.2-12.0 fl Normal MPV 11.6 LAB L100.2100 47-70 % High NEUT% 73.3 LAB L100.2200 19-41 % Normal LY% 21.7 LAB L100.2300 0-10 % Normal MONO% 4.6 LAB L100.2400 0-5 % Normal EO% 0.2 LAB L100.2500 0-1 % Normal BASO% 0.1 LAB L100.2550 0.0-0.9 % Normal IM GRAN % 0.100 Result Comment: IG% - Immature Granulocytes (promyelocytes, myelocytes and metamyelocytes) > 1% indicates that a LEFT SHIFT is Present. LAB L100.2620 2.0-7.7 X10 3/uL Normal Absolute Neut 5.9 LAB L100.2720 0.83-4.51 X10 3/ul Normal Absolute Lymph 1.74 LAB L100.4500 Normal SMEAR COMMENT COMMENT Result Comment: SLIDE SCANNED - 1+ LARGE PLTS, RARE RBC FRAGMENTS. Performed By: #### L100.0100 #### [facility] [address] [facility] [place], [address] VITAMIN B12 Collected: 02/04/2018 Status: F Source: FLOM 10:39 AM [facility] [place] TYPE CODE TESTS RESULT OUT OF REFERENCE UNITS RANGE LAB L503.0105 211-911 pg/mL High Vitamin B12 1225 Performed By: #### L503.0105 #### [facility] [address] [place], [place], [address] IRON BINDING Collected: 02/04/2018 Status: F Source: SIDRA CAPACITY,TOTAL 10:39 AM [facility] Order Comment: Serial Specimen #1, #2 or #3? 1 Is Patient Taking Vitamins or Folic Acid Supplements? N TYPE CODE TESTS RESULT OUT OF RANGE REFERENCE UNITS LAB L503.6075 250-450 ug/dL Normal TIBC 407 Performed By: #### L503.6075, L503.6150, L503.6550, L504.2610, L506.0250 #### [facility] [address] [place], [address] IRON Collected: 02/04/2018 Status: F Source: FLOM 10:39 AM [facility] Order Comment: Serial Specimen #1, #2 or #3? 1 Is Patient Taking Vitamins or Folic Acid Supplements? N TYPE CODE TESTS RESULT OUT OF RANGE REFERENCE UNITS LAB L503.6150 65-175 ug/dL Low IRON 26 Performed By: #### L503.6075, L503.6150, L503.6550, L504.2610, L506.0250 #### [facility] [address] [place], [address] FERRITIN Collected: 02/04/2018 Status: F Source: FLOM 10:39 AM [facility] Order Comment: Serial Specimen #1, #2 or #3? 1 Is Patient Taking Vitamins or Folic Acid Supplements? N TYPE CODE TESTS RESULT OUT OF REFERENCE UNITS RANGE LAB L503.6550 26-388 ng/mL Low FERRITIN 9 Performed By: #### L503.6075, L503.6150, L503.6550, L504.2610, L506.0250 #### [facility] [address] [place], [address] LDH Collected: 02/04/2018 Status: F Source: FLOM 10:39 AM [facility] Order Comment: Serial Specimen #1, #2 or #3? 1 Is Patient Taking Vitamins or Folic Acid Supplements? N TYPE CODE TESTS RESULT OUT OF RANGE REFERENCE UNITS LAB L504.2610 87-241 U/L Normal LDH 234 Performed By: #### L503.6075, L503.6150, L503.6550, L504.2610, L506.0250 #### [facility] [address] [place], [address] FOLATES, (FOLIC ACID) Collected: 02/04/2018 Status: F Source: FLOM 10:39 AM [facility] Order Comment: Serial Specimen #1, #2 or #3? 1 Is Patient Taking Vitamins or Folic Acid Supplements? N TYPE CODE TESTS RESULT OUT OF RANGE REFERENCE UNITS LAB L506.0250 3.1-55.4 ng/mL Normal FOLATES 24.00 Performed By: #### L503.6075, L503.6150, L503.6550, L504.2610, L506.0250 #### [facility] [address] [facility] [place], [address] CBC W/DIFF, AUTOMATED Collected: 01/30/2018 Status: F Source: FLOM 9:47 AM [facility] TYPE CODE TESTS RESULT OUT OF RANGE REFERENCE UNITS LAB L100.1000 4.4-11.0 K/mm3 Normal WBC 7.6 LAB L100.1200 4.6-6.2 M/mm3 Low RBC 3.61 LAB L100.1300 13.0-16.5 g/dl Low HGB 8.9 LAB L100.1400 40-54 % Low HCT 31.0 LAB L100.1500 80-94 fL Normal MCV 85.9 LAB L100.1600 27.0-32.0 pg Low MCH 24.7 LAB L100.1700 32-36 g/gl Low MCHC 28.7 LAB L100.1810 11.6-14.6 % High RDW CV 18.2 LAB L100.1820 35.1-43.9 fl High RDW SD 57.0 LAB L100.1900 150-450 K/mm3 Low PLT 142 LAB L100.2000 6.2-12.0 fl Normal MPV 11.9 LAB L100.2100 47-70 % Normal NEUT% 64.6 LAB L100.2200 19-41 % Normal LY% 28.9 LAB L100.2300 0-10 % Normal MONO% 5.8 LAB L100.2400 0-5 % Normal EO% 0.4 LAB L100.2500 0-1 % Normal BASO% 0.0 LAB L100.2550 0.0-0.9 % Normal IM GRAN % 0.300 Result Comment: IG% - Immature Granulocytes (promyelocytes, myelocytes and metamyelocytes) > 1% indicates that a LEFT SHIFT is Present. LAB L100.2620 2.0-7.7 X10 3/uL Absolute Neut Normal 4.9 LAB L100.2720 0.83-4.51 X10 3/ul Absolute Lymph Normal 2.20 LAB L100.7300 ANISO Normal 2+ LAB L100.7600 HYPOCHROMASIA Normal 1+ LAB L100.8400 SCHISTOCYTES Normal RARE Performed By: #### L100.0100 #### [facility] [address] [place], [place], [address] COMPREHENSIVE METABOLIC Collected: 01/30/2018 Status: F Source: SIDRA JAD 9:47 AM [facility] TYPE CODE TESTS RESULT OUT OF RANGE REFERENCE UNITS LAB L501.0100 74-106 mg/dL Normal GLU 89 Result Comment: Please note revised GLUCOSE reference range effective 2017. LAB L501.1000 7-18 mg/dL Normal BUN 18 LAB L501.1100 0.70-1.30 mg/dL High CREAT,SERUM 1.48 Result Comment: The validity of the calculated GFR AND GFRAA in patients over 70 years has not been determined. Clinical correlation is essential. LAB L501.1110 >60 mL/min Low EST GFR 49 Result Comment: Non- GFR Calc LAB L501.1115 >60 mL/min Low EST GFR - AA 59 Result Comment: GFR Calc LAB L501.1300 10-20 RATIO Normal BUN/CRE 12.2 LAB L501.1500 6.4-8.2 g/dL T Normal PROT 6.9 LAB L501.1800 3.2-5.0 g/dL Normal ALB 3.4 LAB L501.1950 2.2-4.2 g/dL Normal GLOB 3.5 LAB L501.2000 0.9-2.4 RATIO Normal A/G 1.0 LAB L501.2200 8.5-10.1 mg/dL CA Normal 8.7 LAB L501.4100 15-37 U/L Normal AST 15 LAB L501.4305 45-117 U/L High ALK P 119 LAB L501.4405 16-61 U/L Normal ALT 18 LAB L501.4600 0.20-1.00 mg/dL T Normal BILI 0.60 LAB L501.5300 136-145 mmol/L NA Normal 140 LAB L501.5600 3.5-5.1 mmol/L K Normal 4.1 LAB L501.5900 98-107 mmol/L CL Normal 105 LAB L501.6100 21.0-32.0 mmol/L Normal CO2 26.0 LAB L501.6200 5-15 Normal GAP 9 Performed By: #### L500.4050, L500.4100, L501.9520 #### [facility] [address] [facility] [place], [place], [address] LIPID PROFILE Collected: 01/30/2018 Status: F Source: SIDRA 9:47 AM [facility] [place] TYPE CODE TESTS RESULT OUT OF RANGE REFERENCE UNITS LAB L501.4900 200 mg/dL Normal CHOL 100 Result Comment: <200 mg/dL Desirable 200-240 mg/dL Borderline >240 mg/dL High Risk LAB L501.5000 mg/dL Normal TRIG 62 Result Comment: The drugs N-Acetylcysteine and Metamizole may falsely depress this assay. Serum Triglycerides Reference Interval Normal <150 mg/dL Borderline high 150 - 199 mg/dL High 200 - 499 mg/dL Very High > or = 500 mg/dL LAB L501.6400 mg/dL Normal HDL 45 Result Comment: The drugs N-Acetylcysteine and Metamizole may falsely depress this assay. Reference Range HDL <40 mg/dL Low HDL Cholesterol HDL >or= 60 mg/dL High HDL Cholesterol LAB L501.6500 0-130 mg/dL Normal LDL 43 LAB L501.6600 5-40 mg/dL Normal VLDL 12 Performed By: #### L500.4050, L500.4100, L501.9520 #### [facility] [address] [place], [place], [address] THYROID STIM HORMONE Collected: 01/30/2018 Status: F Source: SIDRA (TSH) 9:47 AM [facility] TYPE CODE TESTS RESULT OUT OF RANGE REFERENCE UNITS LAB L501.9520 0.358-3.74 uIU/mL Normal TSH 1.59 Performed By: #### L500.4050, L500.4100, L501.9520 #### [facility] [address] [place], [address] ALLERGIES ALLERGIES DATE TYPE / CODE NAME / CODE REACTION SEVERITY SOURCE 02/27/2018 Drug cefdinir/F00 Rash Unknown [facility] Allergy/4160 [id number]([facility] [address](SNOMED ) Repository CT) ENCOUNTERS ENCOUNTERS ADMIT/DISCHARGE ACCOUNT ADMITTING ENCOUNTER LOCATION SOURCE NUMBER CLASS 04/15/2018 [id number] Ambulatory [facility] [place] [facility] ing:LAB.FUTUR Repository E 03/06/2018/ [id number] Ambulatory [facility] [place] [facility] Repository 03/04/2018 [id number] Ambulatory [facility] ing:LAB Repository 02/27/2018/ [id number] Ambulatory [facility]:B [place] [facility] Repository 02/25/2018 [id number] [facility]CT Repository 02/22/2018/ [id number] Ambulatory [facility] [place] [address] [facility] ing:ENRoom: Repository AC10 02/22/2018/ [id number] Ambulatory BMSBuilding:B [place] 8 5 [facility] Repository 02/18/2018/ [id number] Ambulatory BMSBuilding:B [place] [facility] Repository 02/04/2018 [id number] Ambulatory [place] [facility] ing:BFHLAB Repository 01/30/2018 [id number] Ambulatory [facility] ing:LAB Repository PAYERS PAYERS ENCOUNTER GUARANTOR PAYER SUBSCRIBER SOURCE 04/15/2018 SHIRLEY [place] Primary [place] [id number] Insurance:MEDICARE MOWRERDOB: [facility] [id number] [address]Tel: Number: Repository [id number] (HP) Date:2018-03-06 04/15/2018 Secondary SHIRLEY E [place] Insurance:MEDICO RAMIRO MOWRERDOB: [employer] [id number] Hospital COMPolicy Number: Repository [id number] Date:5302-53-30[address] [address]LO: 04/15/2018 Tertiary NOT GIVENUNK [place] Insurance:SELF PAY [facility] Number: Effective Repository Date:2018-03-06 03/06/2018 SHIRLEY E Primary SHIRLEY E [place] [id number] N Insurance:MEDICARE MOWRERDOB: [facility] [place] [place] [id number] [place] [id number]: Number: Repository [id number] (HP) Date:2018-02-27 03/06/2018 Secondary SHIRLEY E [place] Insurance:MEDICO RAMIRO MOWRERDOB: [employer] [id number] Hospital COMPolicy Number: Repository [id number] Date:8525-41-38[address]BRWWDANJ[address] [address]HM: 03/06/2018 Tertiary NOT GIVENUNK [place] Insurance:SELF PAY [facility] Number: Effective Repository Date:2018-03-05 03/04/2018 SHIRLEY E Primary SHIRLEY E [place] [id number] N Insurance:MEDICARE MOWRERDOB: [facility] [place] [place], PART A [facility] [id number] [place] [id number]: Number: Repository [id number] (HP) Date:2018-03-04 03/04/2018 Secondary SHIRLEY E [place] Insurance:MEDICO RAMIRO MOWRERDOB: [employer] [id number] Hospital COMPolicy Number: Repository [id number] Date:5377-48-80AM [address] [address]JC: 03/04/2018 Tertiary NOT GIVENUNK [place] Insurance:SELF PAY [facility] Number: Effective Repository Date:2018-03-04 02/27/2018 SHIRLEY Lees Primary [place] [id number] Insurance:MEDICARE MOWRERDOB: [facility] [place] [place], PART A olic [id number] [facility] [address]Sut: Number: Repository [id number] (HP) Date:2018-02-22 02/27/2018 Secondary SHIRLEY E [place] Insurance:MEDICO RAMIRO MOWRERDOB: [employer] [id number] Hospital COMPolicy Number: Repository [id number] Date:2897-01-15YU [facility] [address]22[address]SIQHRANJUM GARCIA [address]JW: 02/27/2018 Tertiary NOT GIVENUNK [place] Insurance:SELF PAY [facility] Number: Effective Repository Date:2018-02-27 02/25/2018 SHIRLEY Lees Primary [place] [id number] Insurance:MEDICARE MOWRERDOB: [facility] [place], PART A [facility] [id number] Memorial Hospital [address]Nms: Number: Repository [id number] (HP) Date:2018-02-22 02/25/2018 Secondary SHIRLEY E [place] Insurance:MEDICO RAMIRO MOWRERDOB: [employer] [id number] Hospital COMPolicy Number: Repository [id number] Date:6320-55-84BS [facility] 14137WWNSBANJUM GARCIA [address]OW: 02/25/2018 Tertiary NOT GIVENUNK [place] Insurance:SELF PAY [facility] Number: Effective Repository Date:2018-02-22 02/22/2018 SHIRLEY Lees Primary SH[place] [id number] N Insurance:MEDICARE MOWRERDOB: [facility] [place], PART A [facility] [id number] Memorial Hospital [address]Rhe: Number: Repository [id number] (HP) Date:2018-02-18 02/22/2018 Secondary SHIRLEY E [place] Insurance:MEDICO RAMIRO MOWRERDOB: [employer] [id number] Hospital COMPolicy Number: Repository [id number] Date:7938-27-46[address] [address]ZJ: 02/22/2018 Tertiary NOT GIVENUNK [place] Insurance:SELF PAY [facility] Number: Effective Repository Date:2018-02-18 02/22/2018 SHIRLEY E Primary SHIRLEY E [place] [id number] N Insurance:MEDICARE MOWRERDOB: [facility] [place], PART A [facility] [id number] Memorial Hospital [address]Zdu: Number: Repository [id number] () Date:2018-02-18 02/22/2018 Secondary SHIRLEY E [place] Insurance:MEDICO RAMIRO MOWRERDOB: [employer] [id number] Hospital COMPolicy Number: Repository [id number] Date:5280-15-52[address] [address]GQOE, [place] [address]BB: 02/22/2018 Tertiary NOT GIVENUNK [place] Insurance:SELF PAY [facility] Number: Effective Repository Date:2018-02-22 02/18/2018 SHIRLEY E Primary SHIRLEY E [place] [id number] Insurance:MEDICARE MOWRERDOB: Community [place], PART A [facility] [id number] Memorial Hospital [address]Apl: Number: Repository [id number] () Date:2018-02-15 02/18/2018 Secondary SHIRLEY E [place] Insurance:MEDICO RAMIRO MOWRERDOB: [employer] [id number] Hospital COMPolicy Number: Repository [id number] Date:2215-78-97XR [address] [address]ZS: 02/18/2018 Tertiary NOT GIVENUNK [place] Insurance:SELF PAY [facility] Number: Effective Repository Date:2018-02-18 02/04/2018 Shirley E Primary Shirley E [place] [id number] [place] Insurance:MEDICARE MowrerDOB: [facility] [place] [place] [facility] [id number] Memorial Hospital [address]Mmy: Number: Repository [id number] () Date:2018-02-04 02/04/2018 Secondary Shirley E [place] Insurance:MEDICO RAMIRO MowrerDOB: [employer] [id number] Hospital COMPolicy Number: Repository [id number] Date:1835-26-19[address] [address]HJFPXANJ[address] [address]NG: 02/04/2018 Tertiary NOT GIVENUNK [place] Insurance:SELF PAY [facility] Number: Effective Repository Date:2018-02-04 01/30/2018 Shirley E Primary Shirley E [place] [id number] [place] Insurance:MEDICARE MowrerDOB: [facility] [id number] Memorial Hospital [address]Qeo: Number: Repository [id number] () Date:2018-01-30 01/30/2018 Secondary Shirley E [place] Insurance:MEDICO RAMIRO MowrerDOB: [employer] [id number] Hospital COMPolicy Number: Repository [id number] Date:4123-47-51[address] [address]WEJYLANJ[address] [address]VS: 01/30/2018 Tertiary NOT GIVENUNK [place] Insurance:SELF PAY [facility] Number: Effective Repository Date:2018-01-30
== END ==
PROVIDERS: Family Provider Family Medicine; PCP Family Medicine; Visit Provider Family Medicine
DX: D50.9 Iron deficiency anemia, unspecified (principal)
CPT/HCPCS: 36415; 82728; 83540; 85025

== ENCOUNTER 2018-06-27 01:34 | Inpatient (IN) | payer MEDICARE, OTHER, SELFPAY ==
[2018-06-27] VITALS (8 sets, daily range): BP systolic 104–144; BP diastolic 64–73; PULSE 64–84; RESP 16–18; TEMP 36.6–37.2; O2SAT 95–97; BMI 24.7; BMI 24.1; BMI 24.2
[2018-06-27 02:49] LABS: Bacteria 0 SEEN /hpf (None Seen); Mucous, Urine 0 SEEN /hpf (<or=2+); Squamous Epithelial Cells - UA 0 SEEN /hpf (0-5)
[2018-06-27 03:06] LABS: Prothrombin Time (Protime)PT. 13.1 SECONDS (11.7-14.9)
[2018-06-27 03:07] LABS: Absolute Neutrophil Count 5.9 X10^3/uL (2.0-7.7); Basophil# 0.02 X10^3/uL; Basophil% 0.2 % (0-1); Eosinophil# 0.07 X10^3/uL; Eosinophils% 0.7 % (0-5); Hematocrit 35.6 % (40-54); Hemoglobin 11.2 g/dl (13.0-16.5); Lymphocyte % 33.3 % (19-41); Mean Corp Hgb Conc 31.5 g/gl (32-36); Mean Corpuscular Hgb 32.2 pg (27.0-32.0); Mean Corpuscular Volume 102.3 fL (80-94); Mean Platelet Vol. 12.1 fl (6.2-12.0); Monocyte# 0.81 X10^3/uL; Monocyte% 7.9 % (0-10); Neutrophil # 5.86 X10^3/uL (2.7-7.7); Neutrophil % 57.3 % (47-70); Platelet Count 120 K/mm3 (150-450); RBC Distribution Width CV 16.4 % (11.6-14.6); RBC Distribution Width SD 58.7 fl (35.1-43.9); Red Blood Count 3.48 M/mm3 (4.6-6.2); White Blood Count 10.2 K/mm3 (4.4-11.0)
[2018-06-27 03:08] LABS: Differential Indicated SCAN CRITERIA MET; POSITIVE COUNT NO; POSITIVE DIFFERENTIAL NO; POSITIVE MORPHOLOGY YES
[2018-06-27 03:09] LABS: Anion Gap 6 (5-15); BUN 15 mg/dL (7-18); BUN/Creat Ratio 12.3 RATIO (10-20); Calcium,Total 8.4 mg/dL (8.5-10.1); Chloride 105 mmol/L (98-107); Creatinine, Serum 1.22 mg/dL (0.70-1.30); EST Glomerular Filtration Rate 61 mL/min (>60); Est Glom Filt Rate - Afr Amer 73 mL/min (>60); Estimated Creatinine Clearance 46.72 ml/min; Glucose 89 mg/dL (74-106); Potassium 3.8 mmol/L (3.5-5.1); Sodium Level 141 mmol/L (136-145)
[2018-06-27 03:32] LABS: Color, Urine RED (Yellow); Glucose, Dipstick Normal (Normal); Ketone-Dipstick 5 mg/dl (Negative); Leukocyte Esterase-Dipstick Negative /ul (Negative); Nitrite-Dipstick Negative (Negative); Protein-Dipstick 500 mg/dl (Negative); Urine Bilirubin Dipstick Negative (Negative); Urine Clarity Turbid (Clear); Urine Urobilinogen 4 mg/dl (Normal)
[2018-06-27 03:33] LABS: Occult Blood-Urine 250 /ul (Negative)
[2018-06-27 03:40] LABS: Red Blood Cells-Urine > 100 SEEN /hpf (0-5); White Blood Cells >100 SEEN /hpf (0-5)
--- NOTE | 2018-06-27 04:08 | ED.RN ---
[address] way shook cath placed. irrigated with 320cc of ns. irrigated until clear. shook bag hooked up. will monitor
--- NOTE | 2018-06-27 06:51 | ED.DCSUM_ITS ---
- ER Visit Summary Date of Service: 06/27/18 Chief Complaint: Gross hematuria History of Present Illness: The patient is a 82 M who presents with grossly bloody urine. He complains of suprapubic abdominal pressure but otherwise no complaints. He is on baby aspirin but no other anticoagulation. He does have a history of TURP 2 years ago. No recent illness. No fevers chest pain shortness of breath vomiting diarrhea. Physical Examination: Afebrile vitals stable Moist mucous membranes Heart regular rate and rhythm Lungs are clear Abdomen soft nontender Alert Test Results: Labs notable for hemoglobin 11.2. INR normal. Urinalysis shows greater than 100 WBCs greater than 100 RBCs. Negative leukocyte esterase or nitrites. Emergency Department Course and Treatment: Lab work as above. Patient does have pyuria but there is no nitrites or leukocyte esterase. I believe this is just related to the gross amount of blood in the urine. We did send culture. A 22 Persian three-way Stout catheter was placed and manually irrigated. Urine cleared to a pink colored urine but quickly became dark and grossly bloody again so she was started on continuous bladder irrigation. I spoke to urology on- call. Dr. Strange, and patient admitted to his service. Treatment Plan: [] Disposition: Admit Impression: Gross hematuria This note was generated with [employer] dictation software. It may contain incorrect words, spelling, and punctuation that were not noted in review of the chart prior to signing
--- NOTE | 2018-06-27 07:54 | HP.PCM_ITS ---
History of Present Illness Date of Admission: 06/27/18 Chief Complaint: Gross hematuria The patient is a 82 year old male with a history of enlarged prostate who underwent a TUR P for prostate problems about 2 years ago he been doing relatively well up to go back and look at my notes and see when I last saw him but the family reports that besides some mild urgency he had been urinating well then suddenly developed gross hematuria And passing dark red blood clots. In the emergency room had a catheter placed started on continuous bladder irrigation now the urine is a little bit better pinkish color. Denies any shortness of breath or chest pain his is with him. Past Medical History Medical History: Medical History (Last Reviewed 06/27/18 @ 07:53 by Lance Strange MD) Anemia D64.9 GERD (gastroesophageal reflux disease) K21.9 Heme positive stool R19.5 Hypothyroid E03.9 hypercholesterolemia HTN (hypertension) I10 Allergies cefdinir [From Omnicef] Allergy (Verified 06/27/18 01:36) Rash Home Medications: Ambulatory Orders Medication Instructions Recorded Atorvastatin Calcium 80 mg PO QHS 11/17/16 Citalopram [Celexa] 20 mg PO DAILY 11/17/16 Levothyroxine Sodium [Levoxyl] 125 mcg PO DAILY 11/17/16 Omeprazole [Prilosec] 40 mg PO DAILY 11/17/16 Metoprolol(XL)Succ [Toprol Xl 50 mg PO DAILY 11/24/16 (Beta [place])] ferrous sulfate 325 mg (65 mg 325 mg PO DAILY tab 03/06/18 iron) tablet Aspirin [Aspirin, Baby] 81 mg PO DAILY@0800 06/27/18 Surgical History: Surgical History (Last Reviewed 06/27/18 @ 07:53 by Lance Strange MD) S/P TURP Z90.79 Smoking Status: Never smoker Tobacco Use: Non-smoker Alcohol: None Drugs: None - *Family History Paternal Family History: Family History (Last Reviewed 03/06/18 @ 09:53 by Magi Barron) Mother Breast cancer Father Heart disease History Items: No pertinent history Review of Systems Constitutional: Denies: Chills, Fever, Weight Change HEENT: Denies: Head Aches, Sinus Congestion, Sinus Drainage Cardiovascular: Denies: Chest Pain, Palpitations Respiratory: Denies: Cough, Shortness of breath at rest, Sputum production Gastrointestinal: Denies: Abdominal Pain, Nausea, Vomiting Genitourinary: Reports: Frequency, Hematuria, Urgency. Denies: Dysuria Musculoskeletal: Denies: Joint Pain, Joint Tenderness Skin: Denies: Rash, Wounds Neurological: Denies: Numbness, Tingling, Focal weakness Psychiatric: Denies: Anxiety, Depression, Homicidal Ideations, Suicidal Ideations Hematologic/ Lymphatic: Denies: Easy Bruising, Easy Bleeding VTE Information - Inpt Only VTE Present on Admission: No VTE Mechan Device Prophylaxis: SCD's - Physical Exam General: Alert, Oriented x3, Cooperative HEENT: Atraumatic, PERRLA, EOMI, Normocephalic Neck: Supple, No JVD, Negative Carotid Bruits Lungs: Clear to auscultation, Normal air movement Cardiovascular: Regular rate, No murmurs Abdomen: Bowel Sounds Present, Soft, Non Tender Extremities: No edema, Capillary Refill Less than 3 Seconds Skin: No rashes, No breakdown Musculoskeletal: No Tenderness to Palpation of Joints or Extremities Neurological: Cranial nerves II-XII grossly intact Psych/Mental Status: Normal Affect, Appropriate Vital Signs Temp Pulse Resp BP Pulse Ox 98.6 F 64 18 138/73 H 97 06/27/18 06:40 06/27/18 06:40 06/27/18 06:40 06/27/18 06:40 06/27/18 06:40 Oxygen Delivery Method Room Air Weight: 72.1 kg Body Mass Index (BMI) 24.1 Laboratory Tests Past 24 Hrs 06/27/18 06/27/18 06/27/18 01:45 02:15 02:15 WBC 10.2 RBC 3.48 L Hgb 11.2 L Hct 35.6 L MCV 102.3 H MCH 32.2 H MCHC 31.5 L RDW 16.4 H RDW Differential 58.7 H Plt Count 120 L MPV 12.1 H Immature Gran % (Auto) 0.600 Neut % (Auto) 57.3 Lymph % (Auto) 33.3 [place] % (Auto) 7.9 Eos % (Auto) 0.7 Baso % (Auto) 0.2 Absolute Neuts (auto) 5.9 Absolute Lymphs (auto) 3.40 Total Counted Not Reportable PT 13.1 INR 1.0 Sodium Potassium Chloride Carbon Dioxide Anion Gap BUN Creatinine Estim Creat Clear Calc Est GFR (MDRD) Af Amer Est GFR (MDRD) Non-Af BUN/Creatinine Ratio Glucose Calcium Urine Color RED Urine Clarity Turbid Urine pH 7.0 Ur Specific [place] 1.010 Urine Protein 500 H Urine Glucose (UA) Normal Urine Ketones 5 H Urine Occult Blood 250 H Urine Nitrite Negative Urine Bilirubin Negative Urine Urobilinogen 4 H Ur Leukocyte Esterase Negative Urine RBC > 100 SEEN Urine WBC >100 SEEN Ur Squamous Epith Cells 0 SEEN Urine Bacteria 0 SEEN Urine Mucus 0 SEEN 06/27/18 02:15 WBC RBC Hgb Hct MCV MCH MCHC RDW RDW Differential Plt Count MPV Immature Gran % (Auto) Neut % (Auto) Lymph % (Auto) [place] % (Auto) Eos % (Auto) Baso % (Auto) Absolute Neuts (auto) Absolute Lymphs (auto) Total Counted PT INR Sodium 141 Potassium 3.8 Chloride 105 Carbon Dioxide 30.0 Anion Gap 6 BUN 15 Creatinine 1.22 Estim Creat Clear Calc 46.72 Est GFR (MDRD) Af Amer 73 Est GFR (MDRD) Non-Af 61 BUN/Creatinine Ratio 12.3 Glucose 89 Calcium 8.4 L Urine Color Urine Clarity Urine pH Ur Specific [place] Urine Protein Urine Glucose (UA) Urine Ketones Urine Occult Blood Urine Nitrite Urine Bilirubin Urine Urobilinogen Ur Leukocyte Esterase Urine RBC Urine WBC Ur Squamous Epith Cells Urine Bacteria Urine Mucus Assessment/Plan 82-year-old male with a history of TURP in the past and he developed gross hematuria, we will send the patient down today for a CT scan of the abdomen pelvis with IV contrast to further evaluate. Continue with CBI. N.p.o. at midnight. Plan to enema and on for the schedule for tomorrow for a cystoscopy evacuation of blood clots and cauterization of bleeding
--- NOTE | 2018-06-27 07:56 | CT_ITS ---
STUDY: CT ABDOMEN AND PELVIS WITH CONTRAST REASON FOR EXAM: Male, 82 years old. Gross hematuria. History of prior TURP. RADIATION DOSAGE (If Supplied By Facility): CTDIvol = ( 15.68 ) mGy, DLP = ( 1485.02 ) mGycm TECHNIQUE: Transaxial images were obtained from the dome of the diaphragm to the symphysis pubis without oral contrast. Isovue 300 100mL IV was administered. Sagittal and coronal images were reconstructed. Delayed images were obtained as well. Individualized dose optimization techniques were used for this CT. COMPARISON: Comparison is made with prior study dated February 25, 2018. FINDINGS: Stable mild increased markings at the right lung base suggestive of scarring. The visualized portions of the heart are within normal limits. Stable small hepatic cysts. Normal gallbladder and extrahepatic biliary system. There are multiple benign calcified granulomata of the spleen. Stable tiny hypodensity in the body of the pancreas. Normal bilateral adrenal glands. Normal right kidney. Normal left kidney. There is a large hiatal hernia composed mostly of the fundus of the stomach. Normal small intestine. There is diverticulosis, with thickening of the colon wall, and pericolonic inflammation changes consistent with acute diverticulitis. The appendix is visualized and appears normal. There is diffuse atherosclerotic calcification of the abdominal aorta, without a demonstrated aneurysm. Normal inferior vena cava. Normal retroperitoneum. A Stout catheter is seen within the nondistended urinary bladder. There is marked thickening and irregularity of the wall of the bladder with air within the bladder most likely secondary to Stout manipulation. There is also evidence of a 3 cm x 6.5 cm left urinary bladder diverticulum with a a fluid fluid level. There may be blood along the dependent portion of the diverticulum. There is a small umbilical hernia containing fat. There are diffuse degenerative changes of the visualized lumbar spine. CT/Abdomen/Pelvis W IV Cont ONLY IMPRESSION: Marked irregular thickening of the urinary bladder wall with air within the bladder. Left bladder diverticulum with a fluid fluid level suggesting possible blood along the dependent portion. Sigmoid diverticulosis with a mild degree of increased markings in the surrounding fat suggestive of a noncomplicated sigmoid diverticulitis. Electronically Signed: Bjorn Coker MD at 9:12 EST , Service support ,
[2018-06-27] MEDS: 0.9% Normal Saline 1,000 ML 75 ML IV ×2 (09:43→21:01)
[2018-06-27] MEDS: Levothyroxine 125 MCG Tablet PO (09:44)
[2018-06-27] MEDS: Docusate Sodium 100 MG Capsule PO ×2 (09:44→21:00)
[2018-06-27] MEDS: Pantoprazole Sodium 40 MG Tablet PO (09:44)
[2018-06-27] MEDS: 0.9% NaCl Peripheral Flush Adult/Peds IV (09:44)
[2018-06-27] MEDS: Citalopram 20 MG Tablet PO (09:44)
[2018-06-27] MEDS: Metoprolol(XL)Succ 50 MG Tablet PO (09:45)
[2018-06-27] MEDS: Ferrous Sulfate 325 MG Tablet PO (09:45)
--- NOTE | 2018-06-27 12:55 | EKG12_ITS ---
Test Reason : Blood Pressure : / mmHG Vent. Rate : 080 BPM Atrial Rate : 080 BPM P-R Int : 168 ms QRS Dur : 094 ms QT Int : 396 ms P-R-T Axes : 016 -14 -23 degrees QTc Int : 456 ms Normal sinus rhythm Normal ECG When compared with ECG of 17-NOV-2016 10:22, Non-specific change in ST segment in Anterior leads Nonspecific T wave abnormality now evident in Anterior leads Confirmed by ASMITA CRUZ, DIOR ([id number]), staff editor ESTRELLITA ARCHULETA ([id number]) on 07/02/2018 11:52:55 AM Referred By: ERASMO Confirmed By:DIOR TIAN MD
--- NOTE | 2018-06-27 13:40 | CASEMGMT ---
RN CHRIS RISK REDUCTION COUNSELOR CM to room to meet with patient for initial transition planning/care coordination assessment. RN CHRIS introduced self and role at [facility].? Pt voices understanding and consents to assessment at this time.? Pt resting in bed in no distress at this time.? @ bedside. Pt is awake/alert at this time and asked for SANDEE PEREZ to talk to his , stating, she'll know the answers better than me. Care providers, pharmacy, and demographics verified w/ at this time and all the following information obtained from as well. PCP: [facility] Specialists: [facility] Pharmacy: [facility] Insurance: MCR, [employer] Prescription Benefit:? [employer] Living Will/HPOA:? Pt does not currently have LW/HCPOA. LNOK: and 2 daughters, Rahel and Tiffanie Living Arrangements: Lives @ home with his . states he is independent with personal ADL's and most home mgmt tasks. states she handles the finances. they live in a 2-story home with approx 16 stairs between stories. states pt able to navigate stairs well. Transportation: Pt states drives self and states no transportation concerns at this time.? also drives. DME: ? states pt does not use any DME and denies needs.? HHC/SNF: Has never been to a SNF or used HHC. states she does not feel pt needs either. No needs identified. Pt wishes for pt to return home and states has no concerns with him going home at time of discharge.?? CM to follow for any discharge planning/needs.? Pt voices no further concerns/needs at this time.? Advised her to ask for CM if any further questions/concerns/needs arise.? Voices understanding. PLAN: ?Home with spousal support and discharge plans in place. Dionisio CASTRO RN, CM
[2018-06-27] MEDS: Atorvastatin Calcium 80 MG Tablet PO (21:00)
[2018-06-28] VITALS (11 sets, daily range): BP systolic 80–138; BP diastolic 52–76; PULSE 56–86; RESP 14–18; TEMP 36.3–36.8; O2SAT 92–97; BMI 24.1
--- NOTE | 2018-06-28 | BLA_PTH ---
PATIENT: SHIRLEY MCKNIGHT LOC: MS3 U#:[id number] AGE/SX: 82/M ROOM: MD325 RE06/27/[address]: Dr. Lance Strange MD : [id number] BED: 1 DIS: 06/28/2018 SPEC #: [id number] RECD: 06/28/18 14:58 STATUS: NIURKA CORTEZ #: [id number] CHIQUI: 06/28/18 00:[address]: Lance Strange DEPT: SURGICAL PATHOLOGY RECD BY: Jaziel Mcdonough ENTERED: 07/01/18 08:11 SP TYPE: BLADDER BX OTHR DR: Dr. Yogesh Carlson, DO Tissues: Urinary bladder, NOS Procedures: Surgery Specimen Level IV HEADER OPERATION: Cyst, evacuation hematoma, cauterization PRE-OP DIAGNOSIS: Gross hematuria, bladder diverticulum, history prostate surgery TISSUE SUBMITTED: Bladder biopsy MICROSCOPIC DIAGNOSIS Urinary bladder, biopsy: Ulceration with acute inflammation and fibrinoid material. Recent mucosal hemorrhage. Mild chronic inflammation. No evidence of malignancy. AM:sharon 07/02/18 MICROSCOPIC DESCRIPTION Slides are reviewed. GROSS DESCRIPTION Received in fixative is one container labeled with the patient's name and designated bladder biopsy. The specimen consists of one irregular fragment of light garner soft tissue that measures 0.3 x 0.2 x 0.1 cm. The specimen is totally submitted in one cassette. / HARRISON:sharon 07/01/18 TC:2 CPT: 06768
[2018-06-28] MEDS: Levothyroxine 125 MCG Tablet PO (06:00)
[2018-06-28 07:20] LABS: Absolute Lymphocyte Count 2.99 X10^3/ul (0.83-4.51); Absolute Neutrophil Count 5.3 X10^3/uL (2.0-7.7); Basophil# 0.02 X10^3/uL; Basophil% 0.2 % (0-1); Eosinophil# 0.06 X10^3/uL; Eosinophils% 0.6 % (0-5); Hematocrit 34.1 % (40-54); Lymphocyte # 2.99 X10^3/ul (4.0); Lymphocyte % 31.9 % (19-41); Mean Corp Hgb Conc 32.3 g/gl (32-36); Mean Corpuscular Volume 102.4 fL (80-94); Mean Platelet Vol. 11.8 fl (6.2-12.0); Monocyte# 0.95 X10^3/uL; Monocyte% 10.1 % (0-10); Neutrophil # 5.32 X10^3/uL (2.7-7.7); Neutrophil % 56.8 % (47-70); Platelet Count 115 K/mm3 (150-450); RBC Distribution Width CV 16.4 % (11.6-14.6); RBC Distribution Width SD 59.3 fl (35.1-43.9); Red Blood Count 3.33 M/mm3 (4.6-6.2); White Blood Count 9.4 K/mm3 (4.4-11.0)
[2018-06-28 07:24] LABS: POSITIVE COUNT NO; POSITIVE DIFFERENTIAL NO; POSITIVE MORPHOLOGY NO
[2018-06-28 07:48] LABS: BUN 12 mg/dL (7-18); BUN/Creat Ratio 11.3 RATIO (10-20); Calcium,Total 8.2 mg/dL (8.5-10.1); Chloride 108 mmol/L (98-107); Creatinine, Serum 1.06 mg/dL (0.70-1.30); EST Glomerular Filtration Rate 71 mL/min (>60); Est Glom Filt Rate - Afr Amer 86 mL/min (>60); Estimated Creatinine Clearance 53.77 ml/min; Glucose 89 mg/dL (74-106); Potassium 3.8 mmol/L (3.5-5.1); Sodium Level 140 mmol/L (136-145)
[2018-06-28 07:49] LABS: Anion Gap 4 (5-15); Thyroid Stim Hormone (TSH) 5.33 uIU/mL (0.358-3.74)
[2018-06-28] MEDS: 0.9% Normal Saline 1,000 ML 75 ML IV ×2 (08:05→13:12)
[2018-06-28] MEDS: Metoprolol(XL)Succ 50 MG Tablet PO (08:06)
[2018-06-28] MEDS: Pantoprazole Sodium 40 MG Tablet PO (08:06)
--- NOTE | 2018-06-28 08:50 | NURSING ---
attempt to call dr shetty in office for consent & [employer] emergency telecommunications dispatcher orders unsuccessful, he is in o.r.-attempt to call that unit w/ no answer
[2018-06-28] MEDS: Ciprofloxacin 400 MG/200 ML BAG 200 MG IV (11:10)
--- NOTE | 2018-06-28 11:18 | NURSING ---
nurse shaquille in ac updated that pt urine culture + for beta strep
--- NOTE | 2018-06-28 12:23 | PCM.OPRPT ---
Report of Operation Date of Procedure: 06/28/18 Pre-Operative Diagnosis: Gross hematuria history of prostate surgery TURP, bladder diverticulum Post-Operative Diagnosis: Same Surgery/Procedure Performed:: Cystoscopy evacuation of blood clots, bladder biopsy and fulguration of biopsy site Description of Surgical Findings:: 82-year-old male presented to hospital with gross hematuria he been doing well at home and suddenly started bleeding. Catheter was placed we irrigated out CAT scan was done that demonstrated large bladder diverticulum is a history of TURP in the past they were taken to surgery to evaluate the prostate and the bladder. 82-year-old male taken back to the operating room after smooth induction of general anesthesia he was placed supine on the table in a dorsal lithotomy position, the penis testicles are prepped and draped in usual sterile fashion, went in the bladder with a 21 [place] which is ureteroscope entire length of the urethra was normal sphincter was normal prostate was well resected open no obstruction, once in the bladder evacuated all the blood clots out I then did a biopsy of the redness in the posterior aspect of the bladder fulgurated the biopsy site inspected the bladder more found some small bladder diverticulum posteriorly and then found one very large bladder diverticulum on the patient's left side extremely large bladder diverticulum. All the blood clots were removed there was no more bleeding cauterized the site of his bleeding next bladder diverticulum in the posterior wall the bladder was heavily trabeculated decided not to leave the catheter in and took out the catheter placements been anesthesia is being reversed and will discharge him home later today. Type of Anesthesia:: Local MAC Drains: none - Admit VTE Documentation VTE Present on Admission: No VTE Mechan Device Prophylaxis: SCD's
--- NOTE | 2018-06-28 12:26 | DCINST_ITS ---
Discharge Diet: Light diet - advance as tolerated Discharge Activity: Return to Normal Activity Call your doctor if your incision/area has: Sudden Increased Bleeding Call your doctor if you observe: Inability to urinate Suture Line Care: Avoid Pulling/Pushing, Avoid Pinching/Bending Allergies/Adverse Reactions: Allergies cefdinir [From Omnicef] Allergy (Verified 06/27/18 01:36) Rash Medications to take at Discharge Atorvastatin Calcium 80 mg PO QHS 11/17/16 Citalopram [Celexa] 20 mg PO DAILY 11/17/16 Levothyroxine Sodium [Levoxyl] 125 mcg PO DAILY 11/17/16 Omeprazole [Prilosec] 40 mg PO DAILY 11/17/16 Metoprolol(XL)Succ [Toprol Xl (Beta [place])] 50 mg PO DAILY 11/24/16 ferrous sulfate 325 mg (65 mg iron) tablet 325 mg PO DAILY tab 03/06/18 Aspirin [Aspirin, Baby] 81 mg PO DAILY@0800 06/27/18 Primary Care Physician: Yogesh Carlson DO [Primary Care Provider] - Test Results: Test results from this visit will be discussed in further detail at your follow- up appointment, if applicable. Please Follow Up With: Lance Strange MD When: in 2 weeks, please call to make an appointment.
--- NOTE | 2018-06-28 12:27 | PCM.DC.SUM ---
Discharge Date and Diagnosis Date of Admission: 06/27/18 Date of Discharge: 06/28/18 Hospital Course and Treatment Operations: TURP Procedures: None Summary of Care Provided: The patient is a 82 year old male with a history of BPH and TURP in the past presents to the hospital with gross hematuria, he was irrigated out taken the surgery today with likely blood clots out and found a very large bladder diverticulum I think this is the source of the hematuria that a bladder biopsy and fulgurated the biopsy site stopped of the bleeding catheter was left out of the patient he is awakening from anesthesia and today if he is able to urinate okay will go home today either with a catheter or without a catheter was able to urinate okay. - Physical Exam General: Alert, Oriented x3, Cooperative HEENT: Atraumatic, PERRLA, EOMI, Normocephalic Neck: Supple, No JVD, Negative Carotid Bruits Lungs: Clear to auscultation, Normal air movement Cardiovascular: Regular rate, No murmurs Abdomen: Bowel Sounds Present, Soft, Non Tender Extremities: No edema, Capillary Refill Less than 3 Seconds Skin: No rashes, No breakdown Musculoskeletal: No Tenderness to Palpation of Joints or Extremities Neurological: Cranial nerves II-XII grossly intact Psych/Mental Status: Normal Affect, Appropriate Vital Signs Temp Pulse Resp BP Pulse Ox 98.0 F 70 18 126/74 H 97 06/28/18 11:00 06/28/18 11:00 06/28/18 11:00 06/28/18 11:00 06/28/18 11:00 Oxygen Delivery Method Room Air Weight: 72.1 kg Body Mass Index (BMI) 24.1 Intake and Output for Last 24 Hours 06/26/18 06/27/18 06/28/18 23:59 23:59 23:59 Intake Total 1733 / 1733 1682 / 1682 Output Total 2700 / 2700 850 / 850 Balance -967 / -967 832 / 832 Microbiology Past 72 Hours 06/27/18 01:45 Urine Culture - Preliminary Urine, Clean Catch Beta streptococcus Laboratory Tests Past 24 Hrs 06/28/18 06/28/18 06:55 06:55 WBC 9.4 RBC 3.33 L Hgb 11.0 L Hct 34.1 L MCV 102.4 H MCH 33.0 H MCHC 32.3 RDW 16.4 H RDW Differential 59.3 H Plt Count 115 L MPV 11.8 Immature Gran % (Auto) 0.400 Neut % (Auto) 56.8 Lymph % (Auto) 31.9 [place] % (Auto) 10.1 H Eos % (Auto) 0.6 Baso % (Auto) 0.2 Absolute Neuts (auto) 5.3 Absolute Lymphs (auto) 2.99 Total Counted Not Reportable Sodium 140 Potassium 3.8 Chloride 108 H Carbon Dioxide 28.0 Anion Gap 4 L BUN 12 Creatinine 1.06 Estim Creat Clear Calc 53.77 Est GFR (MDRD) Af Amer 86 Est GFR (MDRD) Non-Af 71 BUN/Creatinine Ratio 11.3 Glucose 89 Calcium 8.2 L TSH 5.33 H Discharge Diet: Light diet - advance as tolerated Discharge Activity: Return to Normal Activity Call your doctor if your incision/area has: Sudden Increased Bleeding Call your doctor if you observe: Inability to urinate Suture Line Care: Avoid Pulling/Pushing, Avoid Pinching/Bending Home Medications: Medications to take at Discharge Atorvastatin Calcium 80 mg PO QHS 11/17/16 Citalopram [Celexa] 20 mg PO DAILY 11/17/16 Levothyroxine Sodium [Levoxyl] 125 mcg PO DAILY 11/17/16 Omeprazole [Prilosec] 40 mg PO DAILY 11/17/16 Metoprolol(XL)Succ [Toprol Xl (Beta [place])] 50 mg PO DAILY 11/24/16 ferrous sulfate 325 mg (65 mg iron) tablet 325 mg PO DAILY tab 03/06/18 Aspirin [Aspirin, Baby] 81 mg PO DAILY@0800 06/27/18 Primary Care Physician: Yogesh Carlson DO [Primary Care Provider] - Please Follow Up With: Lance Strange MD When: in 2 weeks, please call to make an appointment. Medical Necessity - Tobacco Use Smoking Status: Never smoker Tobacco Use: Non-smoker Meaningful Use Info Meaningful Use Diagnoses (Choose all that apply): None applicable
[2018-06-28] MEDS: Ferrous Sulfate 325 MG Tablet PO (14:01)
[2018-06-28] MEDS: Docusate Sodium 100 MG Capsule PO (14:01)
[2018-06-28] MEDS: Citalopram 20 MG Tablet PO (14:01)
== END 2018-06-28 16:52 | disposition home or self-care (01) | DRG 670 ==
LOC: ED 02:47 → MS3 05:09
PROVIDERS: Admitting Provider Urology; Emergency Provider Emergency Medicine; Family Provider Family Medicine; PCP Family Medicine; Visit Provider Urology
PROC: 0TJB8ZZ Inspection of Bladder, Via Natural or Artificial Opening Endoscopic (ICD-10-PCS; CPT 52000; principal; 2018-06-28 11:45)
DX: N32.3 Diverticulum of bladder (principal); R31.0 Gross hematuria; E03.9 Hypothyroidism, unspecified; E78.00 Pure hypercholesterolemia, unspecified; K21.9 Gastro-esophageal reflux disease without esophagitis; I10 Essential (primary) hypertension; D64.9 Anemia, unspecified; Z79.899 Other long term (current) drug therapy; Z79.82 Long term (current) use of aspirin
CPT/HCPCS: 36415; 51702; 74177; 80048; 81001; 84443; 85025; 85610; 87077; 87086; 87088; 88305; 93005; 99282; J7030; Q9967; A4216; J0744; J2405

== ENCOUNTER 2018-07-22 18:58 | Inpatient (IN) | payer MEDICARE, OTHER, SELFPAY ==
[2018-06-28 11:00] VITALS: BMI 24.1
[2018-07-22 18:58] VITALS: BP 142/87; PULSE 76; RESP 15; TEMP 36.8; O2SAT 98; BMI 25.3
[2018-07-22 23:21] LABS: Bacteria 0 SEEN /hpf (None Seen); Mucous, Urine 0 SEEN /hpf (<or=2+); Squamous Epithelial Cells - UA 0 SEEN /hpf (0-5); White Blood Cells 0 SEEN /hpf (0-5)
[2018-07-22 23:26] LABS: Color, Urine Red (Yellow); Glucose, Dipstick Normal (Normal); Ketone-Dipstick Negative (Negative); Leukocyte Esterase-Dipstick Negative /ul (Negative); Nitrite-Dipstick Negative (Negative); Occult Blood-Urine 150 /ul (Negative); Protein-Dipstick 500 mg/dl (Negative); Urine Bilirubin Dipstick Negative (Negative); Urine Clarity Cloudy (Clear); Urine Urobilinogen Normal (Normal)
[2018-07-22 23:26] LABS: Absolute Lymphocyte Count 6.68 X10^3/ul (0.83-4.51); Absolute Neutrophil Count 6.9 X10^3/uL (2.0-7.7); Basophil# 0.02 X10^3/uL; Basophil% 0.1 % (0-1); Eosinophil# 0.05 X10^3/uL; Eosinophils% 0.3 % (0-5); Hemoglobin 12.7 g/dl (13.0-16.5); Lymphocyte # 6.68 X10^3/ul (4.0); Lymphocyte % 45.9 % (19-41); Mean Corp Hgb Conc 31.8 g/gl (32-36); Mean Corpuscular Hgb 32.8 pg (27.0-32.0); Mean Corpuscular Volume 103.4 fL (80-94); Mean Platelet Vol. 11.9 fl (6.2-12.0); Monocyte# 0.83 X10^3/uL; Monocyte% 5.7 % (0-10); Neutrophil # 6.93 X10^3/uL (2.7-7.7); Neutrophil % 47.7 % (47-70); Platelet Count 116 K/mm3 (150-450); RBC Distribution Width CV 16.7 % (11.6-14.6); RBC Distribution Width SD 62.2 fl (35.1-43.9); Red Blood Count 3.87 M/mm3 (4.6-6.2); White Blood Count 14.6 K/mm3 (4.4-11.0)
[2018-07-22 23:27] LABS: Differential Indicated SCAN CRITERIA MET; POSITIVE COUNT NO; POSITIVE DIFFERENTIAL YES; POSITIVE MORPHOLOGY YES
[2018-07-22 23:36] LABS: Red Blood Cells-Urine > 100 SEEN /hpf (0-5)
[2018-07-22 23:41] LABS: ALB/GLOB Ratio 1.1 RATIO (0.9-2.4); AST(SGOT) 19 U/L (15-37); Alanine Aminotransfer ALT/SGPT 24 U/L (16-61); Alkaline Phosphatase 143 U/L (45-117); Anion Gap 8 (5-15); BUN 15 mg/dL (7-18); BUN/Creat Ratio 12.7 RATIO (10-20); Calcium,Total 8.9 mg/dL (8.5-10.1); Chloride 102 mmol/L (98-107); Creatinine, Serum 1.18 mg/dL (0.70-1.30); EST Glomerular Filtration Rate 63 mL/min (>60); Est Glom Filt Rate - Afr Amer 76 mL/min (>60); Globulin 3.5 g/dL (2.2-4.2); Glucose 111 mg/dL (74-106); Potassium 3.5 mmol/L (3.5-5.1); Protein, Total 7.5 g/dL (6.4-8.2); Sodium Level 137 mmol/L (136-145)
[2018-07-22 23:59] VITALS: BP 116/81; PULSE 82; RESP 16; O2SAT 98
--- NOTE | 2018-07-23 00:07 | ED.DCSUM_ITS ---
- ER Visit Summary Date of Service: 07/23/18 Chief Complaint: Hematuria History of Present Illness: The patient is a 83 M who was admitted 1 month ago for hematuria. He had a bladder diverticulum noted on scope. Patient states he has had no problems with hematuria until today and he has had hematuria thro ughout the day. He denies any symptoms of urinary retention. He has not noted significant blood clots. Past history significant for reflux disease, anemia, hypertension, high cholesterol, hypothyroidism, and BPH. Patient takes baby aspirin but no other blood thinners. Physical Examination: Vital signs unremarkable. Patient sitting upright in bed. Head neck examination normal. Heart is regular rate and rhythm. Lung sounds are clear. Abdomen is soft and nontender. Test Results: CBC was a white count of 14.6. Hemoglobin is 12.7. Platelet count was 116,000 which is consistent with his prior. Chemistry studies unremarkable. Urinalysis shows greater than 100 RBCs but no sign of infection. Emergency Department Course and Treatment: Continuous bladder irrigation was started. He continues to have bloody urine. No significant clots are noted. I spoke with Dr. Strange and patient will be admitted for further treatment. Treatment Plan: [] Disposition: Admit Impression: Hematuria This note was generated with [employer] dictation software. It may contain incorrect words, spelling, and punctuation that were not noted in review of the chart prior to signing ED Disposition - Plan for ED Patient: Disposition: Acute [facility]
[2018-07-23 00:09] LABS: Anisocytosis 1+; Macrocytosis 1+; Platelet Estimate SLT DEC (ADEQ)
[2018-07-23 01:26] VITALS: BP 133/71; PULSE 75; RESP 16; O2SAT 95
[2018-07-23 02:15] VITALS: BMI 25.1
[2018-07-23 02:20] VITALS: BMI 25.1
[2018-07-23 02:41] VITALS: BP 127/68; PULSE 63; RESP 16; TEMP 36.9; O2SAT 99
[2018-07-23] MEDS: 0.9% NaCl Peripheral Flush Adult/Peds IV (03:34)
[2018-07-23] MEDS: 0.9% Normal Saline 1,000 ML 75 ML IV ×2 (03:34→18:22)
--- NOTE | 2018-07-23 06:00 | EKG12_ITS ---
Test Reason : PRE-OP Blood Pressure : / mmHG Vent. Rate : 063 BPM Atrial Rate : 063 BPM P-R Int : 166 ms QRS Dur : 092 ms QT Int : 430 ms P-R-T Axes : 025 -05 -06 degrees QTc Int : 440 ms Normal sinus rhythm Normal ECG When compared with ECG of 27-JUN-2018 13:39, No significant change was found Confirmed by ASMITA CRUZ, DIOR ([id number]), fan mail editor ESTRELLITA ARCHULETA ([id number]) on 07/26/2018 9:07:16 AM Referred By: DAYAMI Confirmed By:DIOR TIAN MD
[2018-07-23 06:22] LABS: Absolute Lymphocyte Count 3.91 X10^3/ul (0.83-4.51); Absolute Neutrophil Count 4.2 X10^3/uL (2.0-7.7); Basophil# 0.01 X10^3/uL; Basophil% 0.1 % (0-1); Eosinophil# 0.06 X10^3/uL; Eosinophils% 0.7 % (0-5); Hematocrit 34.9 % (40-54); Lymphocyte # 3.91 X10^3/ul (4.0); Lymphocyte % 43.9 % (19-41); Mean Corp Hgb Conc 31.5 g/gl (32-36); Mean Corpuscular Hgb 32.5 pg (27.0-32.0); Mean Corpuscular Volume 103.3 fL (80-94); Mean Platelet Vol. 11.7 fl (6.2-12.0); Monocyte# 0.74 X10^3/uL; Monocyte% 8.3 % (0-10); Neutrophil # 4.15 X10^3/uL (2.7-7.7); Neutrophil % 46.6 % (47-70); Platelet Count 93 K/mm3 (150-450); RBC Distribution Width SD 58.8 fl (35.1-43.9); Red Blood Count 3.38 M/mm3 (4.6-6.2); White Blood Count 8.9 K/mm3 (4.4-11.0)
[2018-07-23 06:29] LABS: International Normalized Ratio 1.1; Prothrombin Time (Protime)PT. 14.3 SECONDS (11.7-14.9)
[2018-07-23] MEDS: Ciprofloxacin 400 MG/200 ML BAG 200 MG IV ×2 (06:29→22:01)
[2018-07-23 06:46] LABS: POSITIVE COUNT NO; POSITIVE DIFFERENTIAL NO; POSITIVE MORPHOLOGY NO
[2018-07-23 06:47] LABS: AST(SGOT) 16 U/L (15-37); Alanine Aminotransfer ALT/SGPT 21 U/L (16-61); Alkaline Phosphatase 115 U/L (45-117); Anion Gap 8 (5-15); BUN 13 mg/dL (7-18); BUN/Creat Ratio 13.8 RATIO (10-20); Bilirubin, Direct 0.31 mg/dL (0.00-0.30); Calcium,Total 8.5 mg/dL (8.5-10.1); Chloride 106 mmol/L (98-107); Creatinine, Serum 0.94 mg/dL (0.70-1.30); EST Glomerular Filtration Rate 82 mL/min (>60); Est Glom Filt Rate - Afr Amer 99 mL/min (>60); Estimated Creatinine Clearance 57.62 ml/min; Globulin 2.9 g/dL (2.2-4.2); Glucose 83 mg/dL (74-106); Potassium 3.7 mmol/L (3.5-5.1); Protein, Total 5.9 g/dL (6.4-8.2); Sodium Level 141 mmol/L (136-145); Thyroid Stim Hormone (TSH) 4.81 uIU/mL (0.358-3.74)
--- NOTE | 2018-07-23 07:47 | PCM.HP.STD ---
Problem List (1) Gross hematuria Status: Acute History of Present Illness Date of Admission: 07/23/18 Chief Complaint: Gross hematuria history of TURP in the past history of bladder diverticulum The patient is a 83 year old male who had a TURP about a year or so ago is been urinating quite well since then and then last month presented with gross hematuria work-up really no findings were found except for a large bladder diverticulum discussed with the family that may be we need to remove the diverticulum as it causing some bladder stretching and bleeding but given his age the family was reluctant so we proceeded with observation. He now presents again to the hospital with another episode of gross bleeding and heavy bleeding which required bladder irrigation. I suspect that the source of the bleeding could be the bladder diverticulum could also be a prior TURP will review imaging. For now the urine is clearing fairly quickly with irrigation no plan to go to surgery. Past Medical History Medical History: Medical History (Last Reviewed 07/23/18 @ 07:49 by Lance Strange MD) Anemia D64.9 GERD (gastroesophageal reflux disease) K21.9 Heme positive stool R19.5 Hypothyroid E03.9 hypercholesterolemia HTN (hypertension) I10 Allergies cefdinir [From Omnicef] Allergy (Verified 07/22/18 19:01) Rash Home Medications: Ambulatory Orders Medication Instructions Recorded Atorvastatin Calcium 80 mg PO DAILY 11/17/16 Citalopram [Celexa] 20 mg PO DAILY 11/17/16 Levothyroxine Sodium [Levoxyl] 125 mcg PO DAILY 11/17/16 Omeprazole [Prilosec] 40 mg PO DAILY 11/17/16 Metoprolol(XL)Succ [Toprol Xl 50 mg PO DAILY 11/24/16 (Beta [place])] ferrous sulfate 325 mg (65 mg 325 mg PO DAILY tab 03/06/18 iron) tablet Aspirin 81 mg PO DAILY 07/23/18 Finasteride 5 mg PO QHS 07/23/18 Surgical History: Surgical History (Last Reviewed 07/23/18 @ 07:49 by Lance Strange MD) S/P TURP Z90.79 Surgical History: no surgical history Smoking Status: Former smoker Tobacco Use: Cigarettes - *Family History Paternal Family History: Family History (Last Reviewed 07/23/18 @ 07:49 by Lance Strange MD) Mother Breast cancer Father Heart disease History Items: No pertinent history Review of Systems Constitutional: Denies: Chills, Fever, Weight Change HEENT: Denies: Head Aches, Sinus Congestion, Sinus Drainage Cardiovascular: Denies: Chest Pain, Palpitations Respiratory: Denies: Cough, Shortness of breath at rest, Sputum production Gastrointestinal: Denies: Abdominal Pain, Nausea, Vomiting Genitourinary: Reports: Hematuria. Denies: Dysuria Musculoskeletal: Denies: Joint Pain, Joint Tenderness Skin: Denies: Rash, Wounds Neurological: Denies: Numbness, Tingling, Focal weakness Psychiatric: Denies: Anxiety, Depression, Homicidal Ideations, Suicidal Ideations Hematologic/ Lymphatic: Denies: Easy Bruising, Easy Bleeding VTE Information - Inpt Only VTE Present on Admission: No VTE Mechan Device Prophylaxis: SCD's Patient Problems: Active and Suspected Problems (Last Reviewed 06/27/18 @ 07:53 by Lance Strange MD) Gross hematuria (Acute) - Physical Exam General: Alert, Oriented x3, Cooperative HEENT: Atraumatic, PERRLA, EOMI, Normocephalic Neck: Supple, No JVD, Negative Carotid Bruits Lungs: Clear to auscultation, Normal air movement Cardiovascular: Regular rate, No murmurs Abdomen: Bowel Sounds Present, Soft, Non Tender Extremities: No edema, Capillary Refill Less than 3 Seconds Skin: No rashes, No breakdown Musculoskeletal: No Tenderness to Palpation of Joints or Extremities Neurological: Cranial nerves II-XII grossly intact Psych/Mental Status: Normal Affect, Appropriate Vital Signs Temp Pulse Resp BP Pulse Ox 98.4 F 63 16 127/68 H 99 07/23/18 02:41 07/23/18 02:41 07/23/18 02:41 07/23/18 02:41 07/23/18 02:41 Oxygen Delivery Method Room Air Weight: 72.711 kg Body Mass Index (BMI) 25.1 Intake and Output for Last 24 Hours 07/21/18 07/22/18 07/23/18 23:59 23:59 23:59 Intake Total 168 / 168 Output Total 1100 / 1100 Balance -932 / -932 Laboratory Tests Past 24 Hrs 07/22/18 07/22/18 07/22/18 23:07 23:12 23:12 WBC 14.6 H RBC 3.87 L Hgb 12.7 L Hct 40.0 MCV 103.4 H MCH 32.8 H MCHC 31.8 L RDW 16.7 H RDW Differential 62.2 H Plt Count 116 L MPV 11.9 Immature Gran % (Auto) 0.300 Neut % (Auto) 47.7 Lymph % (Auto) 45.9 H [place] % (Auto) 5.7 Eos % (Auto) 0.3 Baso % (Auto) 0.1 Absolute Neuts (auto) 6.9 Absolute Lymphs (auto) 6.68 H Total Counted Not Reportable Differential Comment SEE COMMENT Diff Path Review May foll Platelet Estimate SLT DEC Anisocytosis 1+ Macrocytosis 1+ PT INR APTT Sodium 137 Potassium 3.5 Chloride 102 Carbon Dioxide 27.0 Anion Gap 8 BUN 15 Creatinine 1.18 Estim Creat Clear Calc 45.90 Est GFR (MDRD) Af Amer 76 Est GFR (MDRD) Non-Af 63 BUN/Creatinine Ratio 12.7 Glucose 111 H Calcium 8.9 Total Bilirubin 1.20 H Direct Bilirubin AST 19 ALT 24 Alkaline Phosphatase 143 H Total Protein 7.5 Albumin 4.0 Globulin 3.5 Albumin/Globulin Ratio 1.1 TSH Urine Color Red Urine Clarity Cloudy Urine pH 7.0 Ur Specific [place] 1.010 Urine Protein 500 H Urine Glucose (UA) Normal Urine Ketones Negative Urine Occult Blood 150 H Urine Nitrite Negative Urine Bilirubin Negative Urine Urobilinogen Normal Ur Leukocyte Esterase Negative Urine RBC > 100 SEEN Urine WBC 0 SEEN Ur Squamous Epith Cells 0 SEEN Urine Bacteria 0 SEEN Urine Mucus 0 SEEN 07/23/18 07/23/18 07/23/18 05:40 05:40 05:40 WBC 8.9 RBC 3.38 L Hgb 11.0 L Hct 34.9 L MCV 103.3 H MCH 32.5 H MCHC 31.5 L RDW 16.0 H RDW Differential 58.8 H Plt Count 93 L MPV 11.7 Immature Gran % (Auto) 0.400 Neut % (Auto) 46.6 L Lymph % (Auto) 43.9 H [place] % (Auto) 8.3 Eos % (Auto) 0.7 Baso % (Auto) 0.1 Absolute Neuts (auto) 4.2 Absolute Lymphs (auto) 3.91 Total Counted Not Reportable Differential Comment Diff Path Review Platelet Estimate Anisocytosis Macrocytosis PT 14.3 INR 1.1 APTT 34.0 Sodium 141 Potassium 3.7 Chloride 106 Carbon Dioxide 27.0 Anion Gap 8 BUN 13 Creatinine 0.94 Estim Creat Clear Calc 57.62 Est GFR (MDRD) Af Amer 99 Est GFR (MDRD) Non-Af 82 BUN/Creatinine Ratio 13.8 Glucose 83 Calcium 8.5 Total Bilirubin 1.20 H Direct Bilirubin 0.31 H AST 16 ALT 21 Alkaline Phosphatase 115 Total Protein 5.9 L Albumin 3.0 L Globulin 2.9 Albumin/Globulin Ratio TSH 4.81 H Urine Color Urine Clarity Urine pH Ur Specific [place] Urine Protein Urine Glucose (UA) Urine Ketones Urine Occult Blood Urine Nitrite Urine Bilirubin Urine Urobilinogen Ur Leukocyte Esterase Urine RBC Urine WBC Ur Squamous Epith Cells Urine Bacteria Urine Mucus Assessment/Plan All Active Problems (Last Reviewed 06/27/18 @ 07:53 by Lance Strange MD) Gross hematuria (Acute) 83-year-old male with history of TURP in the past, history of BPH with obstruction, history of bladder diverticulum, presents with gross hematuria again. Plan to do another CAT scan of the abdomen pelvis with IV contrast to evaluate the source of the hematuria continue with bladder irrigation. He can have regular diet. No plan for the operating room for now. If hematuria will clear on its own we will send him home and continue work-up as an outpatient.
--- NOTE | 2018-07-23 07:50 | CT_ITS ---
STUDY: CT ABDOMEN AND PELVIS WITHOUT CONTRAST REASON FOR EXAM: Male, 83 years old. Gross hematuria. Recent TURP. RADIATION DOSAGE (If Supplied By Facility): CTDIvol = ( 13.96 ) mGy, DLP = ( 1143.76 ) mGycm TECHNIQUE: Transaxial images were obtained from the dome of the diaphragm to the symphysis pubis without oral contrast, and without intravenous contrast. Sagittal and coronal images were reconstructed. Individualized dose optimization techniques were used for this CT. COMPARISON: Comparison is made with prior examination dated June 27, 2018. FINDINGS: Stable increased markings at the lung bases suggestive scarring. Coronary artery calcification. Stable small hepatic cysts. The largest measures approximately 1.2 cm. Normal gallbladder and extrahepatic biliary system. There are multiple benign calcified granulomata of the spleen. Borderline splenomegaly. Normal pancreas. Normal bilateral adrenal glands. Normal right kidney. Normal left kidney. There is a large hiatal hernia composed mostly of the fundus of the stomach. Normal small intestine. There are multiple colonic diverticula consistent with diverticulosis. Mild degree of residual increased markings in the surrounding sigmoid mesentery suggestive of minimal diverticulitis. The appendix is visualized and appears normal. There is diffuse atherosclerotic calcification of the abdominal aorta, without a demonstrated aneurysm. Normal inferior vena cava. Normal retroperitoneum. A Stout catheter is seen within the urinary bladder. The bladder is moderately distended. Persistent irregularity along the base of the bladder worse on the right side. There is evidence of a 6.6 cm x 4.6 cm diverticulum along the posterior aspect of the left side of the bladder. Increased density is seen within the diverticulum suggestive of blood within the diverticulum. There is a small umbilical hernia containing fat. There are diffuse degenerative changes of the visualized lumbar spine. CT/Abdomen/Pelvis W IV Cont ONLY IMPRESSION: Stable examination with evidence of a moderate-sized left-sided bladder diverticulum containing blood. Mild residual inflammatory changes seen in the sigmoid colon although this has improved. Electronically Signed: Bjorn Coker, at 10:12 EDT , Service support ,
[2018-07-23 09:05] VITALS: BP 152/73; PULSE 67; RESP 18; TEMP 36.9; O2SAT 94
--- NOTE | 2018-07-23 12:55 | CASEMGMT ---
RN CM Assessment Presentation: Gross hematuria. Hx of TURP. 3 way shook irrigation. Intro role of CM to patient and in room. Pt able to participate in assessment. PCP: Dr. Yogesh Carlson Pharmacy: [facility]- preferred Prescription coverage: yes Living arrangements: Pt lives with - states he is independent, does not use ambulatory DME. DME: none HHC: none DC PLANNING: anticipate home on discharge.
[2018-07-23 13:38] VITALS: BP 110/59; PULSE 87; RESP 18; TEMP 36.8; O2SAT 97
[2018-07-23 13:48] LABS: Pathologist Review Reviewed
[2018-07-23 20:19] VITALS: BP 105/60; PULSE 86; RESP 18; TEMP 36.6; O2SAT 98
[2018-07-23] MEDS: Atorvastatin Calcium 80 MG Tablet PO (21:55)
[2018-07-23] MEDS: Finasteride 5 MG Tablet PO (21:56)
[2018-07-23 21:57] VITALS: PULSE 72
[2018-07-23] MEDS: Metoprolol(XL)Succ 50 MG Tablet PO (21:57)
[2018-07-23] MEDS: Ferrous Sulfate 325 MG Tablet PO (21:57)
[2018-07-23] MEDS: Pantoprazole Sodium 40 MG Tablet PO (21:57)
[2018-07-23] MEDS: Citalopram 20 MG Tablet PO (21:57)
[2018-07-24] VITALS (15 sets, daily range): BP systolic 95–132; BP diastolic 50–73; PULSE 55–77; RESP 16–18; TEMP 36.1–37.4; O2SAT 93–98; BMI 25.1
[2018-07-24] MEDS: Levothyroxine 125 MCG Tablet PO (05:30)
--- NOTE | 2018-07-24 08:15 | PCM.PROGNOTE ---
Patient Problems: Active and Suspected Problems (Last Reviewed 07/23/18 @ 07:49 by Lance Strange MD) Gross hematuria (Acute) Subjective: plan to take to OR today for evacuation of blood clots - Physical Exam General: Alert, Oriented x3, Cooperative HEENT: Atraumatic, PERRLA, EOMI, Normocephalic Neck: Supple, No JVD, Negative Carotid Bruits Lungs: Clear to auscultation, Normal air movement Cardiovascular: Regular rate, No murmurs Abdomen: Bowel Sounds Present, Soft, Non Tender Extremities: No edema, Capillary Refill Less than 3 Seconds Skin: No rashes, No breakdown Musculoskeletal: No Tenderness to Palpation of Joints or Extremities Neurological: Cranial nerves II-XII grossly intact Psych/Mental Status: Normal Affect, Appropriate Vital Signs Temp Pulse Resp BP Pulse Ox 97.7 F L 65 16 109/64 97 07/24/18 02:50 07/24/18 02:50 07/24/18 02:50 07/24/18 02:50 07/24/18 02:50 Oxygen Delivery Method Room Air Weight: 72.711 kg Body Mass Index (BMI) 25.1 Intake and Output for Last 24 Hours 07/22/18 07/23/18 07/24/18 23:59 23:59 23:59 Intake Total 2421 / 2421 457 / 457 Output Total 2450 / 2450 1525 / 1525 Balance -29 / -29 -1068 / -1068 Laboratory Tests Past 24 Hrs 07/22/18 23:12 Diff Path Review Reviewed Medical Necessity - Tobacco Use Smoking Status: Former smoker Tobacco Use: Cigarettes Assessment/Plan All Active Problems (Last Reviewed 07/23/18 @ 07:49 by Lance Strange MD) Gross hematuria (Acute) npo for surgery today
[2018-07-24] MEDS: 0.9% Normal Saline 1,000 ML 75 ML IV ×2 (08:27→15:05)
[2018-07-24] MEDS: Ciprofloxacin 400 MG/200 ML BAG 200 MG IV ×2 (09:58→21:37)
[2018-07-24] MEDS: Metoprolol(XL)Succ 50 MG Tablet PO (11:00)
[2018-07-24] MEDS: Ferrous Sulfate 325 MG Tablet PO (11:00)
[2018-07-24] MEDS: Citalopram 20 MG Tablet PO (11:00)
[2018-07-24] MEDS: Pantoprazole Sodium 40 MG Tablet PO (11:00)
--- NOTE | 2018-07-24 13:39 | PCM.OPRPT ---
Problem List (1) Gross hematuria Status: Acute Report of Operation Date of Procedure: 07/24/18 Pre-Operative Diagnosis: Gross hematuria history of TURP and large bladder diverticulum Post-Operative Diagnosis: The same Surgery/Procedure Performed:: Cystoscopy evacuation of blood clots Description of Surgical Findings:: 83-year-old male who had a TURP in the past returns again to the hospital with bleeding and blood clot retention. He has a history of a large bladder diverticulum but given his age and also her dementia the family is been reluctant to have any surgery done for the diverticulum but he comes back again with another episode of gross bleeding last time I saw him he had a gross hematuria and ended up in the hospital with evacuated blood clots in his bladder on the large bladder diverticulum recommended surgery we decided to hold off because of reluctance of the family at this point we comes back again with bleeding from his bladder and I suspect the bleeding is caused by diverticulum. 83-year-old male taken back to the operating with smooth induction of general anesthesia he was placed supine on the table In the dorsolithotomy position within the bladder the 21 [place] rigid cystourethroscope found a lot of blood clots within the bladder and allowed blood clots in the diverticulum these were all Ellik out after Ellik out all the blood clots then inspected he had a very thickened trabeculated bladder left and right ureter orifice normal the prostate was nicely resected no bleeding from the prostate, he has a very large diverticulum, inside the diverticulum there was evacuated out no tumors or stones seen within the diverticulum and the wall was very erythematous within the diverticulum no active bleeding within the bladder diverticulum but I suspect that the bleeding is caused by the diverticulum being stretched out and causing bleeding. I think these can the need to have this diverticulum surgically removed. At this point at the end of the case all the blood clots were removed urine was clear I put a 20 [place] catheter into the bladder with 5 cc balloon on gravity drainage patient anesthetic is currently being reversed taken back to PACU good condition. Type of Anesthesia:: General - Admit VTE Documentation VTE Present on Admission: No VTE Mechan Device Prophylaxis: SCD's
[2018-07-24] MEDS: Atorvastatin Calcium 80 MG Tablet PO (21:37)
[2018-07-24] MEDS: Finasteride 5 MG Tablet PO (21:38)
[2018-07-25 00:04] VITALS: BP 107/81; PULSE 69; RESP 16; TEMP 36.8; O2SAT 94
[2018-07-25] MEDS: 0.9% Normal Saline 1,000 ML 75 ML IV (03:39)
[2018-07-25 03:42] VITALS: BP 112/59; PULSE 68; RESP 16; TEMP 36.8; O2SAT 94
[2018-07-25] MEDS: Levothyroxine 125 MCG Tablet PO (05:49)
--- NOTE | 2018-07-25 07:45 | DCINST_ITS ---
Discharge Diet: No Restrictions Discharge Activity: Return to Normal Activity, May Not Drive - for 2 days. Additional Activity Instructions:: f you have a catheter, remove on ___. If you have any problems after catheter is removed, call [phone] and ask for your doctor to be paged. Please be aware that pain medications may cause nausea. You should typically eat light foods as you take your pain medication. Pain medication may cause constipation, if this is a problem for you, please discuss with your doctor. Allergies/Adverse Reactions: Allergies cefdinir [From Omnicef] Allergy (Verified 07/22/18 19:01) Rash Medications to take at Discharge Atorvastatin Calcium 80 mg PO DAILY 11/17/16 Citalopram [Celexa] 20 mg PO DAILY 11/17/16 Levothyroxine Sodium [Levoxyl] 125 mcg PO DAILY 11/17/16 Omeprazole [Prilosec] 40 mg PO DAILY 11/17/16 Metoprolol(XL)Succ [Toprol Xl (Beta [place])] 50 mg PO DAILY 11/24/16 ferrous sulfate 325 mg (65 mg iron) tablet 325 mg PO DAILY tab 03/06/18 Aspirin 81 mg PO DAILY 07/23/18 Finasteride 5 mg PO QHS 07/23/18 Ciprofloxacin [Cipro] 500 mg PO BID #6 tablet 07/25/18 Primary Care Physician: Yogesh Carlson DO [Primary Care Provider] - Test Results: Test results from this visit will be discussed in further detail at your follow- up appointment, if applicable. Please Follow Up With: Lance Strange MD When: in 2 weeks, please call to make an appointment.
--- NOTE | 2018-07-25 07:45 | PCM.DC.SUM ---
Discharge Date and Diagnosis - Problem List Patient Problems: Active and Suspected Problems (Last Reviewed 07/23/18 @ 07:49 by Lance Strange MD) Gross hematuria (Acute) Date of Admission: 07/23/18 Date of Discharge: 07/25/18 - Primary Discharge Diagnosis Active and Suspected Problems (Last Reviewed 07/23/18 @ 07:49 by Lance Strange MD) Gross hematuria (Acute) Hospital Course and Treatment Summary of Care Provided: The patient is a 83 year old male with a large bladder diverticulum admitted for gross hematuria taken to the operating room with clots evacuated out no clear source of where the bleeding is coming from I suspect this from the diverticulum again stretched out and bleeding. We will discharge the patient home today after he is able to urinate will remove the catheter the urine is crystal clear with no blood. Is been stable. He will follow-up in my office in a few weeks probably will need to have the bladder diverticulum removed. Patient Problems: Active and Suspected Problems (Last Reviewed 07/23/18 @ 07:49 by Lance Strange MD) Gross hematuria (Acute) - Physical Exam General: Alert, Oriented x3, Cooperative HEENT: Atraumatic, PERRLA, EOMI, Normocephalic Neck: Supple, No JVD, Negative Carotid Bruits Lungs: Clear to auscultation, Normal air movement Cardiovascular: Regular rate, No murmurs Abdomen: Bowel Sounds Present, Soft, Non Tender Extremities: No edema, Capillary Refill Less than 3 Seconds Skin: No rashes, No breakdown Musculoskeletal: No Tenderness to Palpation of Joints or Extremities Neurological: Cranial nerves II-XII grossly intact Psych/Mental Status: Normal Affect, Appropriate Vital Signs Temp Pulse Resp BP Pulse Ox 98.3 F 68 16 112/59 L 94 07/25/18 03:42 07/25/18 03:42 07/25/18 03:42 07/25/18 03:42 07/25/18 03:42 Oxygen Delivery Method Room Air Weight: 72.711 kg Body Mass Index (BMI) 25.1 Intake and Output for Last 24 Hours 07/23/18 07/24/18 07/25/18 23:59 23:59 23:59 Intake Total 2421 / 2421 2681 / 2681 1720 / 1720 Output Total 2450 / 2450 6505 / 6505 850 / 850 Balance -29 / -29 -3824 / -3824 870 / 870 Discharge Diet: No Restrictions Discharge Activity: Return to Normal Activity, May Not Drive - for 2 days. Additional Activity Instructions:: f you have a catheter, remove on ___. If you have any problems after catheter is removed, call [phone] and ask for your doctor to be paged. Please be aware that pain medications may cause nausea. You should typically eat light foods as you take your pain medication. Pain medication may cause constipation, if this is a problem for you, please discuss with your doctor. Home Medications: Medications to take at Discharge Atorvastatin Calcium 80 mg PO DAILY 11/17/16 Citalopram [Celexa] 20 mg PO DAILY 11/17/16 Levothyroxine Sodium [Levoxyl] 125 mcg PO DAILY 11/17/16 Omeprazole [Prilosec] 40 mg PO DAILY 11/17/16 Metoprolol(XL)Succ [Toprol Xl (Beta [place])] 50 mg PO DAILY 11/24/16 ferrous sulfate 325 mg (65 mg iron) tablet 325 mg PO DAILY tab 03/06/18 Finasteride 5 mg PO QHS 07/23/18 Ciprofloxacin [Cipro] 500 mg PO BID #6 tablet 07/25/18 Following Prescrptions Were Given to Patient: Ciprofloxacin [Cipro] 500 mg PO BID #6 tablet Primary Care Physician: Yogesh Carlson DO [Primary Care Provider] - Please Follow Up With: Lance Strange MD When: in 2 weeks, please call to make an appointment. Medical Necessity - Tobacco Use Smoking Status: Former smoker Tobacco Use: Cigarettes Meaningful Use Info Meaningful Use Diagnoses (Choose all that apply): None applicable
[2018-07-25 08:09] VITALS: BP 122/73; PULSE 65; RESP 16; TEMP 36.9; O2SAT 95
[2018-07-25 09:28] VITALS: PULSE 72
[2018-07-25] MEDS: Metoprolol(XL)Succ 50 MG Tablet PO (09:28)
[2018-07-25] MEDS: Citalopram 20 MG Tablet PO (09:28)
[2018-07-25] MEDS: Ferrous Sulfate 325 MG Tablet PO (09:28)
[2018-07-25] MEDS: Pantoprazole Sodium 40 MG Tablet PO (09:28)
[2018-07-25] MEDS: Ciprofloxacin 500 MG Tablet PO (09:30)
[2018-07-25 10:53] VITALS: BP 124/70; PULSE 80; RESP 16; TEMP 36.6; O2SAT 100
== END 2018-07-25 11:10 | disposition home or self-care (01) | DRG 700 ==
LOC: ED 07-23 00:47 → MS2 07-23 01:39
PROVIDERS: Anesthesiology; Admitting Provider Urology; Emergency Provider Emergency Medicine; Family Provider Family Medicine; PCP Family Medicine; Visit Provider Urology
PROC: 0TJB8ZZ Inspection of Bladder, Via Natural or Artificial Opening Endoscopic (ICD-10-PCS; CPT 52000; principal; 2018-07-24 13:00)
DX: N32.3 Diverticulum of bladder (principal); N32.89 Other specified disorders of bladder; R31.0 Gross hematuria; I10 Essential (primary) hypertension; E78.00 Pure hypercholesterolemia, unspecified; E03.9 Hypothyroidism, unspecified; D64.9 Anemia, unspecified; K21.9 Gastro-esophageal reflux disease without esophagitis; Z87.891 Personal history of nicotine dependence
CPT/HCPCS: 36415; 74177; 80048; 80053; 80076; 81001; 84443; 85025; 85610; 85730; 93005; 99281; J7030; Q9967; A4216; J0744; J2405

== ENCOUNTER 2018-09-04 07:37 | Inpatient (IN) | payer MEDICARE, OTHER, SELFPAY ==
[2018-07-24 12:53] VITALS: BMI 25.1
[2018-08-28 14:09] VITALS: BP 110/63; PULSE 70; RESP 16; TEMP 36.4; O2SAT 98; BMI 25.0
[2018-09-04] VITALS (14 sets, daily range): BP systolic 100–144; BP diastolic 56–85; PULSE 59–81; RESP 15–18; TEMP 36.1–37.3; O2SAT 90–99; BMI 25.0; BMI 23.2
[2018-09-04] MEDS: Ciprofloxacin 400 MG/200 ML BAG 200 MG IV (06:45)
--- NOTE | 2018-09-04 07:30 | MISC_PTH ---
PATIENT: SHIRLEY MCKNIGHT LOC: [facility] U#:[id number] AGE/SX: 83/M ROOM: MS310 RE09/04/[address]: Dr. Lance Strange MD : [id number] BED: 1 DIS: 09/06/2018 SPEC #: [id number] RECD: 09/04/18 11:10 STATUS: NIURKA DIEGO #: [id number] CHIQUI: 09/04/18 07:[address]: Lance Strange DEPT: SURGICAL PATHOLOGY RECD BY: Jack Pennington ENTERED: 09/04/18 13:31 SP TYPE: MISC OTHR DR: Dr. Yogesh Carlson, DO Tissues: Urinary bladder, NOS Procedures: Surgery Specimen Level IV HEADER OPERATION: Laparoscopic robotic bladder diverticulectomy PRE-OP DIAGNOSIS: Diverticulum of bladder, incomplete bladder emptying, gross hematuria TISSUE SUBMITTED: Bladder diverticulum MICROSCOPIC DIAGNOSIS Bladder diverticulum, diverticulectomy: Consistent with bladder diverticulum with focal area of ulceration, epithelial hyperplasia, acute and chronic inflammation and reactive changes. Negative for malignancy. HARRISON:sharon 09/05/18 COMMENT Please make reference to previous specimen ([id number]) urinary bladder, biopsy with diagnosis of ulceration with acute inflammation and fibrinoid material, recent mucosal hemorrhage and mild chronic inflammation. MICROSCOPIC DESCRIPTION Slides are reviewed. GROSS DESCRIPTION Received in fixative is one container labeled with the patient's name and designated bladder diverticulum. The specimen consists of a piece of garner-pink soft tissue with morphology of blind folds consistent with diverticulum measuring 7.5 x 6 x 1.5 cm. The outer surface of diverticulum is ragged and inner mucosal surface is smooth and does not show any mass lesion. The outer surface is inked black. Wood Boat [employer] Supervisor sections are submitted in three cassettes. / HARRISON:sharon 09/04/18 TC:5 CPT: 88653
--- NOTE | 2018-09-04 07:43 | DCINST_ITS ---
Discharge Diet: Light diet - advance as tolerated Discharge Activity: May not drive while taking narcotic pain medications., May Shower Call your doctor if your incision/area has: Continuous Slow Oozing, Sudden Increased Bleeding, Increased Pain/ Swelling, Increased Redness, Foul Smelling Discharge, Swelling at the incision site Suture Line Care: Avoid Pulling/Pushing, Avoid Pinching/Bending Catheter: Stout to leg bag, Stout to large bag Drain: [place] Allergies/Adverse Reactions: Allergies cefdinir [From Omnicef] Allergy (Verified 09/04/18 06:18) Rash Medications to take at Discharge Atorvastatin Calcium 80 mg PO DAILY 11/17/16 Citalopram [Celexa] 20 mg PO DAILY 11/17/16 Levothyroxine Sodium [Levoxyl] 125 mcg PO DAILY 11/17/16 Omeprazole [Prilosec] 40 mg PO DAILY 11/17/16 Metoprolol(XL)Succ [Toprol Xl (Beta [place])] 50 mg PO DAILY 11/24/16 ferrous sulfate 325 mg (65 mg iron) tablet 325 mg PO DAILY tab 03/06/18 Finasteride 5 mg PO QHS 07/23/18 Primary Care Physician: Yogesh Carlson DO [Primary Care Provider] - Test Results: Test results from this visit will be discussed in further detail at your follow- up appointment, if applicable. Please Follow Up With: Lance Strange MD When: please call to make an appointment. Proposed Discharge Date: 09/06/18
[2018-09-04] MEDS: Bupivacaine Mpf 0.5% 30 ML VIAL (09:18)
--- NOTE | 2018-09-04 09:23 | OP.PCM_ITS ---
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 Initially did well after the TURP however he kept on having recurrent bleeding from the diverticulum diverticulum get stretched out bleed after his third admission to the hospital for bleeding we decided to repair the bladder diverticulum. Initially the family did not want to have a diverticulum repaired because of avoiding another major surgery and him but with the recurrent hospitalizations we decided to go ahead and proceed and repair of the bladder diverticulum. Procedure the patient taken back to the operating room after smooth induction of general anesthesia he was placed supine on the table his legs were placed in stirrups and then he was placed in dorsolithotomy position for robotic approach to the bladder, the abdomen was shaved and prepped and draped in usual sterile fashion infiltrated the supra umbilical site with lidocaine made a small incision in the skin then placed a Veress needle into the peritoneal cavity and insufflated the peritoneal cavity with CO2 gas, I then placed my 8 mm camera trocar we then inspected the abdomen there was a fairly large sigmoid colon the rest of the abdomen looked okay I then placed a right robotic trocar again a small lidocaine was placed in the skin incision made in the skin place a trocar on the right side and then we placed a left robotic trocar and then we placed a 10 mm air seal port fairly superficial and supra cephalad in order for the dye assisted to use this port to help with the dissection. After the ports were placed the camera was docked the patient was placed in steep Trendelenburg and started by first releasing the sigmoid colon off the peritoneal attachments of the lateral wall this was done very meticulous fashion this then allowed the colon the fall out of her way we then distended the bladder Shook catheter was placed into the bladder and we distend the bladder we could see the midline filling of the bladder and then we could see on the left gutter of the bladder there was another large distending fluid mass. I opened up the peritoneum over this fluid masses within the diverticulum we then used traction to dissect the diverticulum dissected diverticulum off the lateral wall dissected the diverticulum inferior dissected that taken laterally I could take about 30 minutes to dissect the diverticulum off the of the lateral wall make sure to stay real close to diverticulum and avoid any involvement of the ureter during the dissection never saw the ureter stayed right on top of the diverticulum until we reached the diverticular neck into the bladder once the entire diverticulum was dissected out we then opened up the top of the diverticulum splice it open and then excised the diverticulum at the bladder at the diverticular neck circumferentially the diverticulum was then placed into the Endo Catch bag. We then placed a tacking stitch in the top of the loss of where the diverticulum was inserted into the bladder and then we closed the opening into the diverticulum with interrupted 3-0 Vicryl stitches once this was accomplished then we did a fill test filled the bladder up with at least 400 cc of water and there was no leakage from the repair of the diverticular opening site the robot was then undocked we then performed a flexible cystoscopy and look inside the bladder identified the left ureteral orifice and it was effluxing clear urine though no sign of injury to the left ureter that was running underneath the left diverticulum. I then placed an 18 [place] catheter into the bladder under gravity drainage we then closed after extracting the diverticular components that were in the Endo Catch bag we closed the 1012 stitch with the air seal port was with a Dannie Houston stitch and then all the ports were removed and the incisions were closed with some particular stitches patient's anesthetic is currently being reversed. Patient tolerated procedure well very minimal blood loss during the procedure all sponges needles were accounted for. When talked to the family. Type of Anesthesia:: General Drains: shook. - Admit VTE Documentation VTE Present on Admission: No
[2018-09-04] MEDS: 0.45% Normal Saline 1,000 ML 75 ML IV (12:16)
[2018-09-04] MEDS: Ketorolac 15 MG/ML Vial IV ×2 (13:34→18:38)
[2018-09-04] MEDS: Ferrous Sulfate 325 MG Tablet PO (13:34)
[2018-09-04] MEDS: Pantoprazole Sodium 20 MG Tablet PO (13:34)
[2018-09-04] MEDS: Citalopram 20 MG Tablet PO (13:34)
[2018-09-04] MEDS: Docusate Sodium 100 MG Capsule PO ×2 (13:34→21:38)
[2018-09-04] MEDS: Magnesium Hydroxide 30 ML UDC 15 ML PO (13:40)
[2018-09-04] MEDS: Acetaminophen 500 MG Tablet PO (18:47)
[2018-09-04] MEDS: Ciprofloxacin 500 MG Tablet PO (21:38)
[2018-09-04] MEDS: Finasteride 5 MG Tablet PO (21:38)
[2018-09-04] MEDS: Atorvastatin Calcium 80 MG Tablet PO (21:38)
[2018-09-05] MEDS: Ketorolac 15 MG/ML Vial IV ×4 (00:21→18:55)
[2018-09-05] MEDS: 0.45% Normal Saline 1,000 ML 75 ML IV (00:24)
[2018-09-05 05:00] VITALS: BP 115/56; PULSE 64; RESP 14; TEMP 36.8; O2SAT 93
[2018-09-05] MEDS: Levothyroxine 125 MCG Tablet PO (05:40)
[2018-09-05] MEDS: 0.9% NaCl Peripheral Flush Adult/Peds IV ×3 (05:49→18:56)
[2018-09-05 05:52] LABS: Hematocrit 30.8 % (40-54); Hemoglobin 9.8 g/dl (13.0-16.5); Mean Corp Hgb Conc 31.8 g/gl (32-36); Mean Corpuscular Hgb 33.1 pg (27.0-32.0); Mean Corpuscular Volume 104.1 fL (80-94); Mean Platelet Vol. 12.1 fl (6.2-12.0); Platelet Count 89 K/mm3 (150-450); RBC Distribution Width CV 15.7 % (11.6-14.6); RBC Distribution Width SD 57.7 fl (35.1-43.9); Red Blood Count 2.96 M/mm3 (4.6-6.2); White Blood Count 8.8 K/mm3 (4.4-11.0)
[2018-09-05 05:58] LABS: Anion Gap 3 (5-15); BUN 10 mg/dL (7-18); BUN/Creat Ratio 8.9 RATIO (10-20); Calcium,Total 8.1 mg/dL (8.5-10.1); Chloride 105 mmol/L (98-107); Creatinine, Serum 1.12 mg/dL (0.70-1.30); EST Glomerular Filtration Rate 67 mL/min (>60); Est Glom Filt Rate - Afr Amer 81 mL/min (>60); Estimated Creatinine Clearance 53.41 ml/min; Glucose 89 mg/dL (74-106); Sodium Level 139 mmol/L (136-145)
[2018-09-05 05:59] LABS: Scan Indicated on CBC? Y/N NO
--- NOTE | 2018-09-05 07:38 | PCM.PROGNOTE ---
Subjective: s/p surgery doing well. - Physical Exam General: Alert, Oriented x3, Cooperative HEENT: Atraumatic, PERRLA, EOMI, Normocephalic Neck: Supple, No JVD, Negative Carotid Bruits Lungs: Clear to auscultation, Normal air movement Cardiovascular: Regular rate, No murmurs Abdomen: Bowel Sounds Present, Soft, Non Tender Extremities: No edema, Capillary Refill Less than 3 Seconds Skin: No rashes, No breakdown Musculoskeletal: No Tenderness to Palpation of Joints or Extremities Neurological: Cranial nerves II-XII grossly intact Psych/Mental Status: Normal Affect, Appropriate Vital Signs Temp Pulse Resp BP Pulse Ox 98.3 F 64 14 115/56 L 93 09/05/18 05:00 09/05/18 05:00 09/05/18 05:00 09/05/18 05:00 09/05/18 05:00 Oxygen Flow Rate (L/min) 2 Oxygen Delivery Method Room Air Weight: 73.527 kg Body Mass Index (BMI) 23.2 Intake and Output for Last 24 Hours 09/03/18 09/04/18 09/05/18 23:59 23:59 23:59 Intake Total 1737 / 1737 1372 / 1372 Output Total 300 / 300 875 / 875 Balance 1437 / 1437 497 / 497 Laboratory Tests Past 24 Hrs 09/05/18 09/05/18 05:26 05:26 WBC 8.8 RBC 2.96 L Hgb 9.8 L Hct 30.8 L MCV 104.1 H MCH 33.1 H MCHC 31.8 L RDW 15.7 H RDW Differential 57.7 H Plt Count 89 L MPV 12.1 H Sodium 139 Potassium 4.0 Chloride 105 Carbon Dioxide 31.0 Anion Gap 3 L BUN 10 Creatinine 1.12 Estim Creat Clear Calc 53.41 Est GFR (MDRD) Af Amer 81 Est GFR (MDRD) Non-Af 67 BUN/Creatinine Ratio 8.9 L Glucose 89 Calcium 8.1 L Medical Necessity - Tobacco Use Smoking Status: Former smoker Tobacco Use: Non-smoker Assessment/Plan All Active Problems (Last Reviewed 07/23/18 @ 07:49 by Lance Strange MD) Gross hematuria (Acute) doing well home with shook probably tomorrow heplock ivf doing well. reg diet
[2018-09-05 07:46] VITALS: O2SAT 90
[2018-09-05 08:25] VITALS: BP 111/61; PULSE 69; RESP 14; TEMP 36.8; O2SAT 94
[2018-09-05 08:35] VITALS: PULSE 69
[2018-09-05] MEDS: Pantoprazole Sodium 20 MG Tablet PO (08:35)
[2018-09-05] MEDS: Docusate Sodium 100 MG Capsule PO ×2 (08:35→22:29)
[2018-09-05] MEDS: Ciprofloxacin 500 MG Tablet PO ×2 (08:35→22:29)
[2018-09-05] MEDS: Metoprolol(XL)Succ 50 MG Tablet PO (08:35)
[2018-09-05] MEDS: Citalopram 20 MG Tablet PO (08:35)
[2018-09-05] MEDS: Ferrous Sulfate 325 MG Tablet PO (08:35)
[2018-09-05] MEDS: Magnesium Hydroxide 30 ML UDC 15 ML PO (08:41)
--- NOTE | 2018-09-05 11:40 | CASEMGMT ---
SANDEE PEREZ Face to Face with patient for initial transition planning/care coordination assessment. RN CHRIS introduced self and role at [facility]. Patient lying in bed, alert and oriented, . Patient willing to participate in assessment and is able to answer all questions appropriately. Care providers, pharmacy, and demographics verified. Patient wishes to discharge home, denies need for home health at this time. Patient states he has no further needs or concerns at this time. CM to follow for discharge planning needs that may arise. PCP: Aldo Specialists: [facility]le Pharmacy: [facility] Insurance: [facility] Prescription Benefit: Yes Living Will/HPOA: none LNOK: Living Arrangements: Patient lives with in 2 story home and is independent and able to navigate stairs. Transportation: self/ DME/HHC: Patient denies DME Disposition Plan: Patient to discharge home with family support and follow-up plans in place. Yvette CASTRO, RN, CM
[2018-09-05 13:21] VITALS: BP 100/53; PULSE 69; RESP 16; TEMP 36.8; O2SAT 99
[2018-09-05 19:39] VITALS: BP 111/83; PULSE 73; RESP 16; TEMP 36.8; O2SAT 94
[2018-09-05] MEDS: Atorvastatin Calcium 80 MG Tablet PO (22:28)
[2018-09-05] MEDS: Finasteride 5 MG Tablet PO (22:29)
[2018-09-06] MEDS: Ketorolac 15 MG/ML Vial IV ×2 (00:28→05:35)
[2018-09-06] MEDS: 0.9% NaCl Peripheral Flush Adult/Peds IV ×2 (00:28→05:35)
[2018-09-06 02:10] VITALS: BP 128/61; PULSE 70; RESP 16; TEMP 36.3; O2SAT 92
[2018-09-06] MEDS: Levothyroxine 125 MCG Tablet PO (05:35)
[2018-09-06 07:04] VITALS: O2SAT 93
[2018-09-06 08:55] VITALS: BP 125/69; PULSE 71; RESP 14; TEMP 36.7; O2SAT 96
[2018-09-06 09:00] VITALS: PULSE 71
[2018-09-06] MEDS: Pantoprazole Sodium 20 MG Tablet PO (09:00)
[2018-09-06] MEDS: Metoprolol(XL)Succ 50 MG Tablet PO (09:00)
[2018-09-06] MEDS: Ciprofloxacin 500 MG Tablet PO (09:01)
[2018-09-06] MEDS: Docusate Sodium 100 MG Capsule PO (09:01)
[2018-09-06] MEDS: Citalopram 20 MG Tablet PO (09:01)
[2018-09-06] MEDS: Magnesium Hydroxide 30 ML UDC 15 ML PO (09:06)
--- NOTE | 2018-09-06 09:43 | DS.PCM_ITS ---
Discharge Date and Diagnosis Date of Admission: 09/04/18 Date of Discharge: 09/06/18 Hospital Course and Treatment Operations: - - robotic diverticulectomy Procedures: None Summary of Care Provided: The patient is a 83 year old M s/p robotic diverticulectomy doing well home with shook. - Physical Exam General: Alert, Oriented x3, Cooperative HEENT: Atraumatic, PERRLA, EOMI, Normocephalic Neck: Supple, No JVD, Negative Carotid Bruits Lungs: Clear to auscultation, Normal air movement Cardiovascular: Regular rate, No murmurs Abdomen: Bowel Sounds Present, Soft, Non Tender Extremities: No edema, Capillary Refill Less than 3 Seconds Skin: No rashes, No breakdown Musculoskeletal: No Tenderness to Palpation of Joints or Extremities Neurological: Cranial nerves II-XII grossly intact Psych/Mental Status: Normal Affect, Appropriate Vital Signs Temp Pulse Resp BP Pulse Ox 98.1 F 71 14 125/69 H 96 09/06/18 08:55 09/06/18 09:00 09/06/18 08:55 09/06/18 08:55 09/06/18 08:55 Oxygen Flow Rate (L/min) 2 Oxygen Delivery Method Room Air Weight: 73.527 kg Body Mass Index (BMI) 23.2 Intake and Output for Last 24 Hours 09/04/18 09/05/18 09/06/18 23:59 23:59 23:59 Intake Total 1737 / 1737 1863 / 1863 200 / 200 Output Total 300 / 300 1325 / 1325 1000 / 1000 Balance 1437 / 1437 538 / 538 -800 / -800 Discharge Diet: Light diet - advance as tolerated Discharge Activity: May not drive while taking narcotic pain medications., May Shower Call your doctor if your incision/area has: Continuous Slow Oozing, Sudden Increased Bleeding, Increased Pain/ Swelling, Increased Redness, Foul Smelling Discharge, Swelling at the incision site Suture Line Care: Avoid Pulling/Pushing, Avoid Pinching/Bending Catheter: Shook to leg bag, Shook to large bag Drain: [place] Home Medications: Medications to take at Discharge Atorvastatin Calcium 80 mg PO DAILY 11/17/16 Citalopram [Celexa] 20 mg PO DAILY 11/17/16 Levothyroxine Sodium [Levoxyl] 125 mcg PO DAILY 11/17/16 Omeprazole [Prilosec] 40 mg PO DAILY 11/17/16 Metoprolol(XL)Succ [Toprol Xl (Beta [place])] 50 mg PO DAILY 11/24/16 ferrous sulfate 325 mg (65 mg iron) tablet 325 mg PO DAILY tab 03/06/18 Finasteride 5 mg PO QHS 07/23/18 Acetaminophen [Tylenol Extra Strength] 500 mg PO Q4H PRN PRN #20 tablet 09/04/18 Ciprofloxacin [Cipro] 500 mg PO BID #20 tablet 09/04/18 Ibuprofen 600 mg PO Q6H PRN PRN #20 tablet 09/04/18 Following Prescrptions Were Given to Patient: Acetaminophen [Tylenol Extra Strength] 500 mg PO Q4H PRN PRN #20 tablet PRN Reason: Pain Ibuprofen 600 mg PO Q6H PRN PRN #20 tablet PRN Reason: Pain Ciprofloxacin [Cipro] 500 mg PO BID #20 tablet Primary Care Physician: Yogesh Carlson DO [Primary Care Provider] - Please Follow Up With: Lance Strange MD When: please call to make an appointment. Medical Necessity - Tobacco Use Smoking Status: Former smoker Tobacco Use: Non-smoker Meaningful Use Info Meaningful Use Diagnoses (Choose all that apply): None applicable
== END 2018-09-06 10:57 | disposition home or self-care (01) | DRG 655 ==
LOC: MS3 13:37
PROVIDERS: Admitting Provider Urology; Family Provider Family Medicine; PCP Family Medicine; Referring Provider Urology; Visit Provider Urology
PROC: 0VT04ZZ Resection of Prostate, Percutaneous Endoscopic Approach (ICD-10-PCS; CPT 55866; principal; 2018-09-04 07:10)
DX: N32.3 Diverticulum of bladder (principal); R31.0 Gross hematuria; Z87.891 Personal history of nicotine dependence
CPT/HCPCS: 36415; 80048; 85027; 86850; 86900; 88305; 88307; J7120; A4216; C1769; J0744; J2405

== ENCOUNTER 2020-06-30 17:58 | Emergency (ER) | payer MEDICARE, OTHER, SELFPAY ==
[2018-09-04 11:54] VITALS: BMI 23.2
[2020-06-30 17:59] VITALS: BP 149/71; PULSE 65; RESP 16; TEMP 36.2; O2SAT 96; BMI 23.8
[2020-06-30 18:02] VITALS: BP 149/71; PULSE 68; RESP 16; TEMP 36.2; O2SAT 97
--- NOTE | 2020-06-30 18:34 | EKG12_ITS ---
Test Reason : CP Blood Pressure : / mmHG Vent. Rate : 063 BPM Atrial Rate : 063 BPM P-R Int : 170 ms QRS Dur : 092 ms QT Int : 432 ms P-R-T Axes : 026 -08 -02 degrees QTc Int : 442 ms Normal sinus rhythm Minimal voltage criteria for LVH, may be normal variant Borderline ECG Confirmed by ASMITA CRUZ, DIOR ([id number]), index editor ISSA GARVIN ([id number]) on 07/05/2020 10:47:08 AM Referred By: DIANA/TRACE Confirmed By:DOIR TIAN MD
[2020-06-30] MEDS: Aspirin 81 MG TAB.CHEW 324 MG PO (18:47)
[2020-06-30 19:04] LABS: Absolute Lymphocyte Count 4.24 X10^3/uL (0.83-4.51); Absolute Neutrophil Count 7.4 X10^3/uL (2.0-7.7); Basophil# 0.02 X10^3/uL; Basophil% 0.2 % (0-1); Eosinophil# 0.02 X10^3/uL; Eosinophils% 0.2 % (0-5); Hemoglobin 11.9 g/dL (13.0-16.5); Lymphocyte # 4.24 X10^3/ul (4.0); Lymphocyte % 33.1 % (19-41); Mean Corp Hgb Conc 32.2 g/dL (32-36); Mean Corpuscular Hgb 31.3 pg (27.0-32.0); Mean Corpuscular Volume 97.4 fL (80-94); Mean Platelet Vol. 12.6 fl (6.2-12.0); Monocyte# 1.02 X10^3/uL; NRBC Flagged by Analyzer 0 % (0-5); Neutrophil # 7.41 X10^3/uL (2.7-7.7); Neutrophil % 57.6 % (47-70); POSITIVE COUNT YES; POSITIVE MORPHOLOGY YES; Platelet Count 82 K/mm3 (150-450); RBC Distribution Width CV 16.4 % (11.6-14.6); RBC Distribution Width SD 58.2 fl (35.1-43.9); White Blood Count 12.8 K/mm3 (4.4-11.0)
--- NOTE | 2020-06-30 19:09 | RAD_ITS ---
STUDY: X-RAY CHEST REASON FOR EXAM: Male, 84 years old. Chest pain for one hour. Epigastric pain. History of reflux. TECHNIQUE: 5 COMPARISON: None. FINDINGS: The lungs are clear and expanded. There is no demonstrated pleural abnormality. The heart is mildly enlarged. Normal mediastinum and vicky. Normal visualized pulmonary arteries. Normal visualized aortic arch and descending thoracic aorta. The thoracic spine is obscured by the mediastinum. Normal visualized ribs, clavicles, and shoulders. There is gaseous distention of colon beneath the left hemidiaphragm. RAD/Chest 1 View (Portable) IMPRESSION: Cardiomegaly without acute pulmonary disease. Electronically Signed: Denis Salcedo DO at 19:30 EST Tel [phone], Service support ,
[2020-06-30 19:13] VITALS: BP 132/45; PULSE 58; RESP 16; O2SAT 96
[2020-06-30 19:23] LABS: Anion Gap 4 (5-15); BUN 13 mg/dL (7-18); BUN/Creat Ratio 12.4 RATIO (10-20); Calcium,Total 8.8 mg/dL (8.5-10.1); Chloride 106 mmol/L (98-107); Creatinine, Serum 1.05 mg/dL (0.70-1.30); EST Glomerular Filtration Rate 72 mL/min (>60); Est Glom Filt Rate - Afr Amer 87 mL/min (>60); Estimated Creatinine Clearance 52.48 ml/min; Glucose 91 mg/dL (74-106); Sodium Level 138 mmol/L (136-145)
[2020-06-30 19:30] LABS: D-Dimer Quantitative (DVT/PE) 0.84 FEU/ug/m (0.27-0.49)
--- NOTE | 2020-06-30 19:40 | CT_ITS ---
STUDY: CTA CHEST REASON FOR EXAM: Male, 84 years old. Chest pain for one hour with epigastric pain. History of hypertension and previous myocardial infarction. RADIATION DOSAGE (If Supplied By Facility): CTDIvol = ( 8.91 ) mGy, DLP = ( 220.05 ) mGycm TECHNIQUE: The examination was performed with the intravenous administration of IV 100mL Isovue-370. Post-processing of the angiographic images was performed, with multiplanar reformation and 3D reconstruction. Individualized dose optimization techniques were used for this CT. COMPARISON: Chest, 06/30/2020. FINDINGS: Normal enhancement of the main pulmonary artery and right and left pulmonary arteries. Normal enhancement of the bilateral peripheral pulmonary arteries. There is no demonstrated pulmonary embolism. Normal thoracic aorta and visualized great vessels. There is no demonstrated aortic dissection. The heart is mildly enlarged. Normal pericardium. There are calcifications of the coronary arteries. Normal mediastinum. Normal hilar regions. Normal visualized trachea and bronchi. The lungs are well expanded. Normal pulmonary parenchyma. Normal pleura. Normal chest wall structures. There are degenerative changes of thoracic spine. A large retrocardiac hiatal hernia. Calcified granulomata are seen in the spleen. CT/CTA Chest W/WO Contrast IMPRESSION: 1. No evidence of pulmonary embolus. 2. No aortic dissection or aneurysm. 3. No acute pulmonary disease. 4. Mild cardiomegaly. 5. Retrocardiac hiatal hernia. Electronically Signed: Denis Salcedo DO at 20:09 EST Tel [phone], Service support ,
[2020-06-30 19:47] LABS: Differential Comment SCANNED; Differential Indicated SCAN CRITERIA MET
--- NOTE | 2020-06-30 20:37 | EKG12_ITS ---
Test Reason : REPEAT Blood Pressure : / mmHG Vent. Rate : 088 BPM Atrial Rate : 088 BPM P-R Int : 146 ms QRS Dur : 090 ms QT Int : 362 ms P-R-T Axes : 000 -02 000 degrees QTc Int : 438 ms Normal sinus rhythm Possible Left atrial enlargement Borderline ECG Confirmed by ASMITA CRUZ, DIOR ([id number]), dictionary editor ISSA GARVIN ([id number]) on 07/05/2020 10:45:37 AM Referred By: COREY Confirmed By:DIOR TIAN MD
[2020-06-30] MEDS: Acetaminophen 500 MG Tablet 1000 MG PO (20:59)
[2020-06-30 22:13] VITALS: BP 125/46; PULSE 85; RESP 20
--- NOTE | 2020-06-30 22:42 | ED.DCSUM_ITS ---
- ER Visit Summary Date of Service: 06/30/20 Chief Complaint: Chest pain History of Present Illness: The patient is a [address] Carlson. He is not see a electrocardiogram technician. His reports that he had angioplasty 30 years ago. He has not had a recent stress test. Patient reports he has intermittent chest pain that began today. It is an aching pain the last minutes at a time. Is 5 out of 10 severity at worst and currently. It is worsened by breathing. Is actually relieved by walking around. He denies any associated nausea, vomiting, diaphoresis, or shortness of breath. Physical Examination: Vitals: Stable. Afebrile. General: Well-nourished and well-developed. Head: Normocephalic atraumatic. Neck: Supple, no lymphadenopathy. No JVD. Nontender. Cardiovascular: Regular rate and rhythm. 2 out of 6 systolic murmur. Respiratory: No respiratory distress. Clear to auscultation bilaterally. Abdominal: Soft, nontender, nondistended, normal bowel sounds. No guarding, rebound, or peritoneal signs. Back: Nontender. Extremities: Nontender, no edema. Skin: Normal color, no rash. Neurologic: Alert and oriented ?3. Cranial nerves II through XII are intact. Normal strength and sensation. Psych: Normal affect. Test Results: EKG is sinus at [address] changes. Is unchanged from July 2018. Repeat EKG is unchanged. Troponin is negative. Repeat troponin is negative. D-dimer is 0.84. Chem-7 is normal. Covid is negative. CBC shows a white count 12.8 with an H&H of 11.9 37.0. Clinical Impression(s) from Imaging Studies Chest X-Ray 06/30/20 19:09 IMPRESSION: Cardiomegaly without acute pulmonary disease. Electronically Signed: Denis Salcedo DO at 19:30 EST Tel [phone], Service support , Chest CTA 06/30/20 19:40 IMPRESSION: 1. No evidence of pulmonary embolus. 2. No aortic dissection or aneurysm. 3. No acute pulmonary disease. 4. Mild cardiomegaly. 5. Retrocardiac hiatal hernia. Electronically Signed: Denis Salcedo DO at 20:09 EST Tel [phone], Service support , Emergency Department Course and Treatment: Patient was given aspirin p.o. He is resting comfortably. Treatment Plan: I had a prolonged discussion with the patient and his about the need for a stress test. reports that he is does not do well in the hospital and they do not want him to be admitted. I did discuss them that this could be cardiac, but it does not look like he is having a heart attack. Follow-up with her primary care physician as soon as possible. Return to the emergency department for any worsening chest pain or other concerns. Disposition: To home in improved and stable condition. Impression: 1. Atypical chest pain. 2. Heart score 5. 3. Hiatal hernia. This note was generated with Sign[employer] dictation software. It may contain incorrect words, spelling, and punctuation that were not noted in review of the chart prior to signing ED Disposition - Plan for ED Patient: Instructions: What Is a Hiatal Hernia?, ED Chest Pain, Uncertain Cause Referrals: Yogesh Carlson DO [Primary Care Provider] - As soon as possible
[2020-06-30 22:58] VITALS: BP 115/56; PULSE 85; RESP 18; O2SAT 93
== END 2020-06-30 22:59 | disposition home or self-care (01) ==
PROVIDERS: Emergency Provider Emergency Medicine; PCP Family Medicine
DX: R07.89 Other chest pain (principal); K44.9 Diaphragmatic hernia without obstruction or gangrene; I11.9 Hypertensive heart disease without heart failure; I25.2 Old myocardial infarction; K21.9 Gastro-esophageal reflux disease without esophagitis; Z79.82 Long term (current) use of aspirin; Z79.899 Other long term (current) drug therapy
CPT/HCPCS: 71045; 71275; 80048; 84484; 85025; 85379; 87426; 93005; 99285; Q9967; A4216

== ENCOUNTER 2020-07-01 18:11 | Emergency (ER) | payer MEDICARE, OTHER, SELFPAY ==
[2020-06-30 17:59] VITALS: BMI 23.8
[2020-07-01 18:12] VITALS: BP 165/84; PULSE 79; RESP 20; TEMP 36.3; O2SAT 94; BMI 23.4
--- NOTE | 2020-07-01 18:30 | EKG12_ITS ---
Test Reason : CP Blood Pressure : / mmHG Vent. Rate : 081 BPM Atrial Rate : 081 BPM P-R Int : 152 ms QRS Dur : 098 ms QT Int : 376 ms P-R-T Axes : 007 -11 -09 degrees QTc Int : 436 ms Sinus rhythm with Premature atrial complexes Possible Left atrial enlargement Incomplete right bundle branch block Left ventricular hypertrophy Abnormal ECG Confirmed by ASMITA CRUZ, DIOR ([id number]), assistant editor ISSA GARVIN ([id number]) on 07/05/2020 10:53:41 AM Referred By: TRAVIS Confirmed By:DIOR TIAN MD
[2020-07-01] MEDS: Mag Hydrox/Al Hydrox/Simeth 30 ML UDC PO (18:42)
[2020-07-01 19:23] VITALS: BP 114/56; PULSE 87; RESP 18; O2SAT 92
[2020-07-01 19:48] VITALS: BP 164/64; PULSE 97; RESP 20; O2SAT 97
--- NOTE | 2020-07-01 20:05 | ED.DCSUM_ITS ---
History of Present Illness Chief Complaint: Chest Pain Informant: Patient, Significant Other Limited by: Dementia Onset: Today - Current set 1500 Context: Sudden Onset Timing: Continuous Quality: Pain Location: Epigastric and left chest Current Severity: Mild Maximum Severity: Moderate Worsened by: History limited because of dementia Relieved by: History limited because of dementia Associated Symptoms: History limited because of dementia Narrative: Patient elderly male with significant dementia. He was seen yesterday. Report from yesterday was reviewed. Patient reports discomfort in may be worse with swallowing. He was unaware that he had a hiatal hernia until yesterday. He denies black or maroon stool. He denies dyspnea on exertion. [place] orthopnea PND. He denies leg pain, swelling or discoloration. He denies any other symptoms. His history is limited due to dementia. states he was not diaphoretic with the onset nor did he appear short of breath. He was sitting when the pain started. Prior similar symptoms: Yes Recent Illness/Hospitalization: Yes - Past Medical History (1) Hiatal hernia Status: Acute (2) Dementia Status: Acute (3) Gross hematuria Status: Acute Past Medical History - Allergies and Home Meds Allergies/Adverse Reactions: Allergies cefdinir [From Omnicef] Allergy (Verified 07/01/20 18:11) Rash Primary Care Physician: Yogesh Carlson DO [Primary Care Provider] - Prior records reviewed: Yes Surgical History: noncontributory Lives: Spouse/ Significant Other Smoking Status: Former smoker Alcohol: None Drugs: None - Family History Paternal Family History: Family History (Last Reviewed 07/23/18 @ 07:[address] Lance Strange MD) Mother Breast cancer Father Heart disease Family History: Reports: No pertinent history Review of Systems ROS: Unable to Obtain - Due to dementia. supplemented what she could General: Denies: Chills, Fever, Sweats Eyes: Denies: Visual changes - bilaterally, Diplopia ENT: Denies: Rhinorrhea, Sore throat Cardiovascular: Reports: Chest pain Respiratory: Denies: Dyspnea, Cough, Dyspnea on exertion Gastrointestinal: Reports: Abdominal pain. Denies: Nausea, Vomiting, Diarrhea, Melena, Hematochezia Genitourinary: Denies: Dysuria, Hematuria, Frequency Musculoskeletal: Denies: Back pain, Extremity Pain Skin: Denies: Rash, Wounds Neurological: Denies: Headache, Weakness, Numbness Physical Exam Vital Signs/Narrative: Vital Signs Temp Pulse Resp BP Pulse Ox 07/01/20 19:48 97 20 H 164/64 H 97 07/01/20 19:23 87 18 114/56 L 92 07/01/20 18:12 97.4 F L 79 20 H 165/84 H 94 Inital Vital Signs reviewed: Yes General: Well nourished, Well developed, No Acute Distress Head: Normocephalic, Atraumatic Eyes: Perrl, EOMI. Negative for: Pale conjunctiva ENT: Moist mucous membranes, No rhinorrhea Neck: Supple, Nontender, No lymphadenopathy, No JVD Cardiovascular: Regular rate, Regular rhythm, No murmurs, Normal S1, Normal S2 - Prominent S2 Respiratory: No distress, CTA bilaterally, Chest nontender Abdomen: Soft, Nondistended, Normal bowel sounds, No masses, Tender - Gastrum Back: Nontender, Normal Inspection Extremities: Nontender, No edema, - - There is no asymmetry, swelling, discoloration, leg vein distention, palpable cords or tenderness along the distribution of the deep venous system. Skin: Normal color, No rash Neurological: Cranial nerves II-XII grossly intact, Normal Strength, Normal Sensation, Normal DTR, Disoriented. Negative for: Oriented x3 Psychological: Depressed Diagnostic/Tx/Re-eval - EKG Initial EKG Interpretation: Sinus Rhythm - Sinus rhythm with premature atrial beat. Ventricular rate 81. OK interval is 152 ms. Cures duration 98 ms. QT duration 376 ms. [place] to the left. Artifact due to movement. Unchanged from EKG that was performed yesterday June 30 at 2135. - Medical Decision Making Patient has similar presentation yesterday. Work-up was negative yesterday including CTA other than a large hiatal hernia. EKG was performed per nurse protocol. Patient was treated with GI cocktail with improvement. He is present on omeprazole. Will discharge with prescription for Carafate. ED Disposition - Plan for ED Patient: Disposition: Home or Assisted Living Diagnosis: Chest pain, Hiatal hernia Instructions: ED Hiatal Hernia Prescriptions: Sucralfate [Carafate] 1 gm PO 4X/DAY #60 tab [facility]: [id number] Referrals: Yogesh Carlson DO [Primary Care Provider] - 3-5 Days if not improving
--- NOTE | 2020-07-01 20:09 | ED.RN ---
spoke with granddaughter for update
[2020-07-01 20:24] VITALS: BP 150/71
== END 2020-07-01 20:25 | disposition home or self-care (01) ==
PROVIDERS: Emergency Provider Emergency Medicine; PCP Family Medicine
DX: R07.9 Chest pain, unspecified (principal); K44.9 Diaphragmatic hernia without obstruction or gangrene; F03.90 Unspecified dementia, unspecified severity, without behavioral disturbance, psychotic disturbance, mood disturbance, and anxiety; Z87.891 Personal history of nicotine dependence
CPT/HCPCS: 93005; 99284; A4216

== ENCOUNTER → 2022-04-18 | Outpatient (CLI) | payer MEDICARE, OTHER, SELFPAY ==
[2022-04-18 12:16] LABS: Absolute Lymphocyte Count 8.77 X10^3/uL (0.83-4.51); Absolute Neutrophil Count 4.6 X10^3/uL (2.0-7.7); Basophil# 0.02 X10^3/uL; Basophil% 0.1 % (0-1); Eosinophil# 0.01 X10^3/uL; Eosinophils% 0.1 % (0-5); Hematocrit 35.5 % (40-54); Hemoglobin 11.2 g/dL (13.0-16.5); Lymphocyte # 8.77 X10^3/ul (0.83-4.51); Lymphocyte % 56.9 % (19-41); Mean Corp Hgb Conc 31.5 g/dL (32-36); Mean Corpuscular Hgb 31.5 pg (27.0-32.0); Mean Corpuscular Volume 99.7 fL (80-94); Monocyte# 1.78 X10^3/uL; Monocyte% 11.6 % (0-10); NRBC Flagged by Analyzer 0 % (0-5); Neutrophil % 29.8 % (47-70); POSITIVE COUNT YES; POSITIVE DIFFERENTIAL YES; POSITIVE MORPHOLOGY YES; Platelet Count 59 K/mm3 (150-450); Red Blood Count 3.56 M/mm3 (4.6-6.2); White Blood Count 15.4 K/mm3 (4.4-11.0)
[2022-04-18 12:17] LABS: Differential Indicated SCAN CRITERIA MET
[2022-04-18 12:43] LABS: Vitamin B12 781 pg/mL (211-911)
[2022-04-18 12:47] LABS: ALB/GLOB Ratio 0.9 RATIO (0.9-2.4); AST(SGOT) 56 U/L (15-37); Alanine Aminotransfer ALT/SGPT 24 U/L (16-61); Albumin, Serum 3.3 g/dL (3.2-5.0); Alkaline Phosphatase 709 U/L (45-117); Anion Gap 2 (5-15); BUN 20 mg/dL (7-18); BUN/Creat Ratio 17.4 RATIO (10-20); Calcium,Total 9.2 mg/dL (8.5-10.1); Chloride 106 mmol/L (98-107); Creatinine, Serum 1.15 mg/dL (0.70-1.30); EST Glomerular Filtration Rate 64 mL/min (>60); Est Glom Filt Rate - Afr Amer 78 mL/min (>60); Ferritin 312 ng/mL (26-388); Globulin 3.7 g/dL (2.2-4.2); Glucose 96 mg/dL (74-106); Iron 82 ug/dL (65-175); Sodium Level 138 mmol/L (136-145); Thyroid Stim Hormone (TSH) 0.95 uIU/mL (0.358-3.74)
[2022-04-18 13:29] LABS: Anisocytosis 1+; Platelet Estimate MOD DEC (ADEQ); Reactive Lymphocyte 2+
[2022-04-19 13:00] LABS: Pathologist Review Reviewed
== END | disposition home or self-care (01) ==
LOC: BFHLAB 11:02
PROVIDERS: PCP Family Medicine; Visit Provider Family Medicine
DX: I25.10 Atherosclerotic heart disease of native coronary artery without angina pectoris (principal); D50.9 Iron deficiency anemia, unspecified; E03.9 Hypothyroidism, unspecified; Z51.81 Encounter for therapeutic drug level monitoring
CPT/HCPCS: 36415; 80053; 82607; 82728; 83540; 84443; 85025

== ENCOUNTER → 2022-05-01 | Outpatient (CLI) | payer MEDICARE, OTHER, SELFPAY ==
--- NOTE | 2022-05-01 10:53 | US_ITS ---
STUDY: ABDOMINAL ULTRASOUND - left UPPER QUADRANT REASON FOR VISIT: Male, 86 years old ABN LFTS LYMPHOCYTOSIS -- CHECK SPLEEN SIZE TECHNIQUE: Ultrasound evaluation of the left upper quadrant was performed with real-time and static prasad-scale imaging. TECHNICAL QUALITY: Adequate. COMPARISON: None. FINDINGS: Spleen: Moderate degree of splenomegaly. The spleen measures 14.6 cm x 6.9 cm x 7.1 cm. There is a 3 cm x 3.2 cm x 3.3 cm echogenic nodule in the midportion of the spleen. Left kidney: The left kidney measures centimeters by 4.5 cm by 4.5 cm. The renal cortex measures 1.2 cm. US/Spleen IMPRESSION: Moderate degree of splenomegaly. 3 cm x 3.2 cm x 3.3 cm echogenic nodule in the midportion of the spleen. Electronically Signed: Bjorn Coker MD at 14:31 EST ,
--- NOTE | 2022-05-01 10:53 | US_ITS ---
STUDY: ABDOMINAL ULTRASOUND - RIGHT UPPER QUADRANT REASON FOR VISIT: Male, 86 years old ABNORMAL LFTS LYMPHOCYTOSIS -- CHECK SPLEEN SIZE TECHNIQUE: Ultrasound evaluation of the right upper quadrant was performed with real-time and static prasad-scale imaging. TECHNICAL QUALITY: Limited. Examination limited by bowel gas. COMPARISON: None. FINDINGS: Liver: The liver measures 15.4 cm. There is normal echogenicity of the liver. The bile ducts are within normal limits. There is hepatic color flow. The direction of portal flow is hepatopetal. There is no demonstrated mass lesion. Gallbladder: Normal distended gallbladder. The gallbladder wall measures 3 mm. There is a negative sonographic Calderon''s sign. There is no pericholecystic fluid. There are no gallstones. Common Bile Duct (C.B.D.): The common bile duct measures 4 mm. Pancreas: There is nonvisualization of the pancreas due to overlying bowel gas. Right Kidney: Normal size of the right kidney. The right kidney measures 9.7 cm x 4.7 cm x 4 cm. Normal renal cortex. The right cortex measures 1.3 cm. 1 cm x 0.8 cm x 0.6 cm cyst in the midpole. There is no right hydronephrosis. US/Liver IMPRESSION: Right renal cyst. Electronically Signed: Bjorn Coker MD at 14:29 EST ,
== END | disposition home or self-care (01) ==
LOC: US 10:52
PROVIDERS: PCP Family Medicine; Referring Provider Internal Medicine Hematology & Oncology; Visit Provider Internal Medicine Hematology & Oncology
DX: R16.1 Splenomegaly, not elsewhere classified (principal); N28.1 Cyst of kidney, acquired; D72.820 Lymphocytosis (symptomatic); R94.5 Abnormal results of liver function studies
CPT/HCPCS: 76705

== ENCOUNTER 2022-05-12 22:45 | Inpatient (IN) | payer MEDICARE, OTHER, SELFPAY ==
[2022-05-12 22:46] VITALS: BP 135/81; PULSE 100; RESP 16; TEMP 37.3; O2SAT 100; BMI 20.9
[2022-05-12] MEDS: 0.9% Normal Saline 1,000 ML 999 ML IV (23:38)
[2022-05-12 23:44] LABS: Absolute Lymphocyte Count 6.33 X10^3/uL (0.83-4.51); Absolute Neutrophil Count 6.7 X10^3/uL (2.0-7.7); Basophil# 0.03 X10^3/uL; Basophil% 0.2 % (0-1); Hematocrit 35.6 % (40-54); Hemoglobin 11.3 g/dL (13.0-16.5); Lymphocyte # 6.33 X10^3/ul (0.83-4.51); Lymphocyte % 42.9 % (19-41); Mean Corp Hgb Conc 31.7 g/dL (32-36); Mean Corpuscular Hgb 31.3 pg (27.0-32.0); Mean Corpuscular Volume 98.6 fL (80-94); Monocyte# 1.27 X10^3/uL; Monocyte% 8.6 % (0-10); NRBC Flagged by Analyzer 0.7 % (0-5); Neutrophil # 6.68 X10^3/uL (2.7-7.7); Neutrophil % 45.4 % (47-70); POSITIVE COUNT YES; POSITIVE DIFFERENTIAL YES; POSITIVE MORPHOLOGY YES; RBC Distribution Width CV 18.2 % (11.6-14.6); RBC Distribution Width SD 65.1 fl (35.1-43.9); Red Blood Count 3.61 M/mm3 (4.6-6.2); White Blood Count 14.7 K/mm3 (4.4-11.0)
[2022-05-13] VITALS (10 sets, daily range): BP systolic 134–170; BP diastolic 79–97; PULSE 68–98; RESP 16–19; TEMP 36.6–38.2; O2SAT 93–100; BMI 20.1
[2022-05-13] LABS: AST(SGOT) 97 U/L (15-37); Alanine Aminotransfer ALT/SGPT 29 U/L (16-61); Albumin, Serum 3.5 g/dL (3.2-5.0); Alkaline Phosphatase 662 U/L (45-117); Anion Gap 9 (5-15); BUN 29 mg/dL (7-18); BUN/Creat Ratio 23.2 RATIO (10-20); Bilirubin, Direct 0.31 mg/dL (0.00-0.30); Calcium,Total 9.6 mg/dL (8.5-10.1); Chloride 104 mmol/L (98-107); Creatinine, Serum 1.25 mg/dL (0.70-1.30); Differential Indicated SCAN CRITERIA MET; EST Glomerular Filtration Rate 58 mL/min (>60); Est Glom Filt Rate - Afr Amer 71 mL/min (>60); Estimated Creatinine Clearance 38.95 ml/min; Globulin 3.9 g/dL (2.2-4.2); Glucose 153 mg/dL (74-106); Lipase 342 U/L (73-393); Magnesium 1.8 mg/dL (1.6-2.6); Platelet Count 35 K/mm3 (150-450); Potassium 3.3 mmol/L (3.5-5.1); Protein, Total 7.4 g/dL (6.4-8.2); Sodium Level 137 mmol/L (136-145)
[2022-05-13 00:32] LABS: Differential Comment SCANNED
--- NOTE | 2022-05-13 03:31 | EDS_ITS ---
HPI History of Present Illness Chief Complaint: Nausea/Vomiting/Diarrhea Narrative Narrative: Patient is an 86-year-old male from home who lives with his with history of hypertension hyperlipidemia and recently diagnosed thrombocytopenia and elevated alkaline phosphatase. reports that she is been sick with upset stomach and over the past 1 to 2 days the patient's had bouts of nausea vomiting and diarrhea. states that today the patient was so weak that he could not stand and secondary to this EMS was called to bring him in for evaluation. 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 Chronic kidney disease Colitis Coronary arteriosclerosis Gastroesophageal reflux disease with hiatal hernia GERD (gastroesophageal reflux disease) Hematuria Heme positive stool HTN (hypertension) hypercholesterolemia Hyperlipidemia Hypothyroid Iron (Fe) deficiency anemia Lymphocytosis Myocardial infarction Osteoarthritis of knee Prostate nodule Splenomegaly Thrombocytopenia Home Medications atorvastatin 80 mg tablet 80 mg PO DAILY cholesterol 11/17/16 [History Last Taken 06/30/20] citalopram 20 mg tablet 20 mg PO DAILY depression 11/17/16 [History Last Taken 06/30/20] omeprazole 40 mg capsule,delayed release 40 mg PO DAILY gerd 11/17/16 [History Last Taken 06/30/20] metoprolol succinate 50 mg tablet,extended release 24 hr 50 mg PO DAILY blood pressure 11/24/16 [History Last Taken 06/30/20] aspirin 81 mg tablet,delayed release 81 mg PO DAILY@0800 06/30/20 [History Last Taken 06/30/20] levothyroxine 125 mcg tablet 125 mcg PO DAILY THYROID 06/30/20 [History Last Taken 06/30/20] memantine 5 mg tablet 5 mg PO QAM 04/27/22 [History Last Taken Unknown] Allergy/AdvReac Type Severity Reaction Status Date / Time cefdinir [From Omnicef] Allergy Rash Verified 05/03/22 14:38 Family History Father Heart disease Mother Breast cancer Brother COPD (chronic obstructive pulmonary disease) Surgical History History of angioplasty S/P TURP Social History household members: spouse current occupational status: retired current occupation: [employer] Smoking Status: Former smoker Tobacco: How many years used: 15 how long ago did patient quit smokin years alcohol intake: former details: socially substance use type: does not use ROS ROS ED Constitutional Constitutional ED: Denies chills or fever(s) ENT ENT ED: Denies sore throat Cardiovascular Cardiovascular: Denies chest pain Respiratory/Chest Respiratory/Chest: Denies cough or dyspnea Gastrointestinal Gastrointestinal: Reports diarrhea, nausea and vomiting; Denies abdominal pain Genitourinary Genitourinary ED: Denies dysuria Musculoskeletal Musculoskeletal: Denies myalgias Integumentary Denies rash Neurologic Neurologic: Reports weakness; Denies headache(s) Hematologic/Lymphatic Hematologic/Lymphatic: Reports easy bleeding and easy bruising EXAM Physical Exam Const Vital Signs: 05/12/22 22:46 05/13/22 01:01 05/13/22 03:03 Temperature 99.2 F H Temperature Source Temporal Pulse Rate 100 76 68 Respiratory Rate 16 19 H 19 H Blood Pressure 135/81 H 134/97 H 170/82 H Blood Pressure Mean 99 109 111 Pulse Ox 100 100 97 Oxygen Delivery Method Room Air Room Air Room Air Positive well nourished and well developed General Appearance ED: well developed HEENT Reports dry mucous membranes HEENT Narrative: Mucous membranes are dry and tacky Mouth ED: Yes dry mucous membranes Mouth: dry mucous membranes Eyes PERRL and EOMs intact bilaterally General Eye ED: Yes pale conjunctiva Neck supple Resp normal respiratory effort and clear to auscultation bilaterally Cardio regular rate and regular rhythm Rate: other Other Details: Radial pulses are plus 2 out of 4 bilaterally are equal and symmetric GI non-tender and non-distended GI Narrative: Abdomen is soft nontender nondistended with hyperactive bowel sounds. No voluntary guarding or rigidity. No pulsatile mass Auscultation: hyperactive bowel sounds Palpation: soft Extremity normal to inspection Neuro oriented x3 and CN's II-XII intact bilaterally Neuro Narrative: Cranial nerves II through XII are grossly intact there are no focal neurologic deficits. No pronator drift no dysmetria no truncal ataxia. NIH stroke scale score of 0 Sensorium / Orientation: alert Psych Psych Narrative: Patient has a flat affect Skin no rashes or lesions noted Skin Narrative: Skin turgor is increased MDM MDM MDM Narrative Medical decision making narrative: Patient presented to the ER with low-grade temperature and physical exam findings consistent with dehydration. He did not have any pain on palpation of his abdomen so I did not feel there was need for a CT scan at this time. He also reported that his was sick with similar symptoms prior to him starting indicating this is most likely viral in nature. With his exam indicating dehydration I did elect to perform basic laboratory studies. These showed chronic changes like elevation to his alkaline phosphatase and thrombocytopenia which were near baseline. His white count is elevated at 14.7 but this is also been elevated in the past and as he does not have a fever or abdominal pain he did not feel was necessary to follow-up with a CT scan at this time. The patient was hydrated and after this reported feeling better but was still too weak to stand. Therefore at this time as the patient cannot ambulate despite IV hydration he cannot go home and therefore be admitted to the hospital for further care I do not believe there is need for head CT or CTA as the patient does not have any pronator drift or extremity weakness or truncal ataxia Lab Data Attestation: I reviewed the patient's lab results. Labs: Laboratory Results - last 24 hr 05/12/22 05/12/22 23:19 23:19 WBC 14.7 H RBC 3.61 L Hgb 11.3 L Hct 35.6 L MCV 98.6 H MCH 31.3 MCHC 31.7 L RDW Std Deviation 65.1 H RDW Coeff of Alley 18.2 H Plt Count 35 L* Immature Gran % (Auto) 2.900 H Neut % (Auto) 45.4 L Lymph % (Auto) 42.9 H [place] % (Auto) 8.6 Eos % (Auto) 0.0 Baso % (Auto) 0.2 Absolute Neuts (auto) 6.7 Absolute Lymphs (auto) 6.33 H Nucleated RBC % 0.7 Differential Comment SCANNED Diff Path Review May foll Sodium 137 Potassium 3.3 L Chloride 104 Carbon Dioxide 24.0 Anion Gap 9 BUN 29 H Creatinine 1.25 Estim Creat Clear Calc 38.95 Est GFR (MDRD) Af Amer 71 Est GFR (MDRD) Non-Af 58 L BUN/Creatinine Ratio 23.2 H Glucose 153 H Calcium 9.6 Magnesium 1.8 Total Bilirubin 0.90 Direct Bilirubin 0.31 H AST 97 H ALT 29 Alkaline Phosphatase 662 H Total Protein 7.4 Albumin 3.5 Globulin 3.9 Lipase 342 Discharge Plan Dx/Rx/DC Orders Clinical Impression: Nausea vomiting and diarrhea, Mild dehydration, Generalized weakness, Thrombocytopenia Disposition Disposition: [facility] Discharge Date/Time: 05/13/22 05:29
--- NOTE | 2022-05-13 03:33 | PCM.HP.STD ---
HPI - General General Date of Admission: 05/13/22 Date of Service: 05/13/22 Chief Complaint: Nausea, vomiting and diarrhea HPI Narrative SHIRLEY MCKNIGHT, is a 86 M with a significant history of hypertension; depression/anxiety; hyperlipidemia and former tobacco abuse who presents emergency department with 2-day history of nausea, vomiting and diarrhea. His nausea vomiting has improved with patient not vomiting at the time of presentation. Patient has had multiple loose stools with a frequency of bowel movements improved at the time of presentation. However patient has been very weak and is unable to stand. Reportedly when patient stands he feels dizzy. Patient has dementia and is unable to state whether his dizziness is Vertigo or lightheadedness. Of note his recently also had the same symptoms of nausea vomiting and diarrhea. 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 Chronic kidney disease Colitis Coronary arteriosclerosis Gastroesophageal reflux disease with hiatal hernia GERD (gastroesophageal reflux disease) Hematuria Heme positive stool HTN (hypertension) hypercholesterolemia Hyperlipidemia Hypothyroid Iron (Fe) deficiency anemia Lymphocytosis Myocardial infarction Osteoarthritis of knee Prostate nodule Splenomegaly Thrombocytopenia Home Medications atorvastatin 80 mg tablet 80 mg PO DAILY cholesterol 11/17/16 [History Last Taken 06/30/20] citalopram 20 mg tablet 20 mg PO DAILY depression 11/17/16 [History Last Taken 06/30/20] omeprazole 40 mg capsule,delayed release 40 mg PO DAILY gerd 11/17/16 [History Last Taken 06/30/20] metoprolol succinate 50 mg tablet,extended release 24 hr 50 mg PO DAILY blood pressure 11/24/16 [History Last Taken 06/30/20] aspirin 81 mg tablet,delayed release 81 mg PO DAILY@0800 06/30/20 [History Last Taken 06/30/20] levothyroxine 125 mcg tablet 125 mcg PO DAILY THYROID 06/30/20 [History Last Taken 06/30/20] memantine 5 mg tablet 5 mg PO QAM 04/27/22 [History Last Taken Unknown] Allergy/AdvReac Type Severity Reaction Status Date / Time cefdinir [From Omnicef] Allergy Rash Verified 05/03/22 14:38 Family History Father Heart disease Mother Breast cancer Brother COPD (chronic obstructive pulmonary disease) Surgical History History of angioplasty S/P TURP Social History household members: spouse current occupational status: retired current occupation: [employer] Smoking Status: Former smoker Tobacco: How many years used: 15 how long ago did patient quit smokin years alcohol intake: former details: socially substance use type: does not use ROS ROS Narrative Pertinent positives and pertinent negatives as noted in HPI. All other systems were reviewed and are negative Vital Signs Vital Signs Vital Signs: 05/12/22 22:46 05/13/22 01:01 05/13/22 03:03 Temperature 99.2 F H Temperature Source Temporal Pulse Rate 100 76 68 Respiratory Rate 16 19 H 19 H Blood Pressure 135/81 H 134/97 H 170/82 H Blood Pressure Mean 99 109 111 Pulse Ox 100 100 97 Oxygen Delivery Method Room Air Room Air Room Air Weight Weight: 62.6 kg Body Mass Index (BMI) 20.9 Physical Exam Narrative Physical exam: General: Well-nourished, well-developed. Head: Normocephalic, atraumatic, no tenderness Eyes: Vision is grossly intact. EOMI ENT, no trauma, dry mucous membranes, no rhinorrhea Neck: Nontender, No thyromegaly. CVS: Regular rate and rhythm. S1-S2 present. No murmur, gallop or rub. Respiratory : clear to auscultation bilaterally, chest wall nontender, no wheezing Abdomen: Soft, nontender, nondistended, normal bowel sounds, no masses : Deferred Back: Nontender, no CVA tenderness. Extremities: Nontender full range of motion, no trauma Skin: Normal color, no trauma, abrasions Neuro: Alert, confused, cranial nerves II through XII grossly intact. Psychiatry: Normal mood. Normal affect. Not depressed. Not anxious. Results Lab / Micro Data Result Diagrams: 05/12/22 23:19 05/12/22 23:19 Labs: Laboratory Results - last 24 hr 05/12/22 23:19: Sodium 137, Potassium 3.3 L, Chloride 104, Carbon Dioxide 24.0, Anion Gap 9, BUN 29 H, Creatinine 1.25, Estim Creat Clear Calc 38.95, Est GFR (MDRD) Af Amer 71, Est GFR (MDRD) Non-Af 58 L, BUN/Creatinine Ratio 23.2 H, Glucose 153 H, Calcium 9.6, Magnesium 1.8, Total Bilirubin 0.90, Direct Bilirubin 0.31 H, AST 97 H, ALT 29, Alkaline Phosphatase 662 H, Total Protein 7.4, Albumin 3.5, Globulin 3.9, Lipase 342 05/12/22 23:19: WBC 14.7 H, RBC 3.61 L, Hgb 11.3 L, Hct 35.6 L, MCV 98.6 H, MCH 31.3, MCHC 31.7 L, RDW Std Deviation 65.1 H, RDW Coeff of Alley 18.2 H, Plt Count 35 L*, Immature Gran % (Auto) 2.900 H, Neut % (Auto) 45.4 L, Lymph % (Auto) 42.9 H, [place] % (Auto) 8.6, Eos % (Auto) 0.0, Baso % (Auto) 0.2, Absolute Neuts (auto) 6.7, Absolute Lymphs (auto) 6.33 H, Nucleated RBC % 0.7, Differential Comment SCANNED, Diff Path Review September foll Micro: Microbiology 05/12/22 23:32 Nasal Secretion SARS-CoV-2 & FLU Antigen (Rapid) - Final Assessment & Plan Assessment/Plan (1) Gastroenteritis: (2) Dehydration: (3) Generalized weakness: (4) Dizziness: PLAN: Plan Acute gastroenteritis/dehydration/dizziness White count of 14,700. Noted bandemia and lymphocytosis. Of note patient follows up with hematology for abnormal CBC. Note patient with temperature of 100.8.. As needed Tylenol ordered. Received normal saline bolus at the emergency department. Lactated Ringer's with 40 mEq potassium ordered. As needed Zofran IV ordered. Stool studies ordered. Generalized weakness Likely secondary to gastroenteritis. PT and OT to work with patient. Case management consult. Acute on chronic thrombocytopenia Acute phase likely reactive. Trend CBC. No chemical chemoprophylaxis. Hypertension Blood pressure is not within goal Home blood pressure medication continued. As needed hydralazine ordered. Trend blood pressure and adjust blood pressure medications. DVT prophylaxis SCD ordered Charges/Coding Visit Charges OBSV E&M: 21650 Initial observation care L3
--- NOTE | 2022-05-13 06:58 | NURSING ---
pt had small stool in attends, unable to obtain stool specimen pt voids in urinal
--- NOTE | 2022-05-13 10:25 | CASEMGMT ---
Addendum entered by Madhavi Magana 05/13/22 12:36: RN reported that patient fell. PT/OT held today. Per RN patient's daughter indicated that the plan is for patient to return home at discharge. MIKHAIL updated RN CM that patient's family plan is home with home health. Madhavi CHILD Original Note: MIKHAIL Note SW spoke to patient's , Tessa. Tessa said that patient was fine at home and was walking and taking care of himself. Patient, per , couldn't remember what he did 2 minutes ago. Tessa said that patient has never been at SNF. Tessa said that she would like to take patient home with home health PT/OT as he does better when she is around. MIKHAIL will request PT/OT evaluation to assess patient's current functioning. Plan: To be determined Madhavi CHILD
--- NOTE | 2022-05-13 10:55 | NURSING ---
pt witnessed by nurse climbing out the bottom of bed and falling on floor, pt did not hit head, pt denies pain-dr winter notified
[2022-05-13] MEDS: Citalopram 20 MG Tablet PO (11:26)
[2022-05-13] MEDS: Metoprolol(XL)Succ 50 MG Tablet PO (11:26)
[2022-05-13] MEDS: Pantoprazole Sodium 40 MG Tablet PO (11:26)
--- NOTE | 2022-05-13 12:26 | NURSING ---
still awaiting namenda to arrive from Rx
--- NOTE | 2022-05-13 15:38 | PCM.HOSP.N ---
Hospitalist Note Patient was seen and examined today, he suffered a witnessed fall today landing on his lower back. Patient complains of some mild low back pain but I do not feel he needs x-rays at this time. Physical therapy will reevaluate the patient tomorrow, according to family members, it is planned that the patient will return home rather than go to a long-term. For now, we will continue administration of IV fluids and monitor the patient. Enteric stool panel has been ordered as well as Giardia stool test.
[2022-05-13] MEDS: Memantine Hydrochloride 5 MG Tablet PO ×2 (16:12→20:16)
[2022-05-13] MEDS: Menthol/Lanolin/Calamine/Znox 113 GM Tube 1 APPLIC TOPICAL ×2 (16:12→20:16)
--- NOTE | 2022-05-13 18:45 | CASEMGMT ---
SANDEE PEREZ [employer] to room to meet with patient and who is at bedside for initial transition planning/care coordination assessment. SANDEE PEREZ introduced self and role at [facility].? Pt resting in bed in no distress at this time.?Pt answered a few of questions from SANDEE PEREZ, but did not talk much and let answer most quesions. states pt has dementia and she helps to care for him @ home. Care providers, pharmacy, and demographics verified w/ at this time. PCP: Dr Carlson Specialists: Dr Ga-oncology Preferred Pharmacy: [facility] Insurance: [facility], other Commercial Prescription Benefit:? Yes LNOK: , Tessa. 2 dtrs. One dtr's name is Rahel Living Arrangements: Lives w/ in 2-story home. Bedroom and bath on 2nd floor. Bath on 1st floor as well. states could do FFSU. No steps to enter thru the garage. states up until past couple of days, he was mostly independent w/ADL's, but states he does not usually walk much, even @ his baseline d/t knee problems. manages all home tasks and pt's medications and appts. He was not using AD w/ambulation either, until recent illness and weakness. Transportation: DME: ? Has a BSC and walker available, but does not use @ baseline. states may be interested in a shower chair. She was made aware [facility] does not pay for shower chairs and made aware of several locations where these can be purchased. ? states no need for further DME at this time.? HHC/SNF: No hx of either. states she prefers to take pt home @ d/c, if able, but if therapy recommends SNF, she would be agreeable. If he is safe to d/c home, she would like [facility]. She was provided w/list of local HHC agencies and made aware to f/u with PCP re: HHC, if he discharges home over the weekend, as HHC unable to be set up over the w/e. She voices understanding. Discussed [facility]'s requirements of being homebound and that if pt recovers quickly/is not homebound, then OP therapy may be another option. She voices understanding. PLAN: ?TBD by progress w/therapy. SNF vs Home w/HHC. If pt able to return home and discharges over the w/e, aware to f/u with PCP about HHC or OP therapy. Dionisio FUENTESN RN CM
[2022-05-13] MEDS: Atorvastatin Calcium 80 MG Tablet PO (20:16)
[2022-05-14 02:44] VITALS: BP 143/72; PULSE 77; RESP 18; TEMP 36.7; O2SAT 95
[2022-05-14] MEDS: Menthol/Lanolin/Calamine/Znox 113 GM Tube 1 APPLIC TOPICAL ×3 (05:09→21:19)
[2022-05-14] MEDS: Levothyroxine 125 MCG Tablet PO (05:09)
[2022-05-14 07:39] LABS: Absolute Lymphocyte Count 6.33 X10^3/uL (0.83-4.51); Absolute Neutrophil Count 7.5 X10^3/uL (2.0-7.7); Basophil# 0.04 X10^3/uL; Basophil% 0.3 % (0-1); Eosinophil# 0.01 X10^3/uL; Eosinophils% 0.1 % (0-5); Hematocrit 30.8 % (40-54); Hemoglobin 10.3 g/dL (13.0-16.5); Lymphocyte # 6.33 X10^3/ul (0.83-4.51); Mean Corp Hgb Conc 33.4 g/dL (32-36); Mean Corpuscular Hgb 32.9 pg (27.0-32.0); Mean Corpuscular Volume 98.4 fL (80-94); Monocyte# 1.07 X10^3/uL; Monocyte% 6.9 % (0-10); NRBC Flagged by Analyzer 0.3 % (0-5); Neutrophil # 7.54 X10^3/uL (2.7-7.7); Neutrophil % 48.8 % (47-70); POSITIVE COUNT YES; POSITIVE DIFFERENTIAL YES; POSITIVE MORPHOLOGY YES; Platelet Count 25 K/mm3 (150-450); RBC Distribution Width CV 18.2 % (11.6-14.6); RBC Distribution Width SD 64.5 fl (35.1-43.9); Red Blood Count 3.13 M/mm3 (4.6-6.2); White Blood Count 15.4 K/mm3 (4.4-11.0)
[2022-05-14 07:45] LABS: ALB/GLOB Ratio 0.8 RATIO (0.9-2.4); AST(SGOT) 77 U/L (15-37); Alanine Aminotransfer ALT/SGPT 29 U/L (16-61); Albumin, Serum 2.5 g/dL (3.2-5.0); Alkaline Phosphatase 443 U/L (45-117); Anion Gap 7 (5-15); BUN 23 mg/dL (7-18); BUN/Creat Ratio 29.7 RATIO (10-20); Calcium,Total 8.6 mg/dL (8.5-10.1); Chloride 105 mmol/L (98-107); Creatinine, Serum 0.78 mg/dL (0.70-1.30); EST Glomerular Filtration Rate 101 mL/min (>60); Est Glom Filt Rate - Afr Amer 123 mL/min (>60); Estimated Creatinine Clearance 46.92 ml/min; Globulin 3.2 g/dL (2.2-4.2); Glucose 96 mg/dL (74-106); Potassium 3.6 mmol/L (3.5-5.1); Protein, Total 5.7 g/dL (6.4-8.2); Sodium Level 135 mmol/L (136-145)
[2022-05-14 07:58] LABS: Differential Indicated SCAN CRITERIA MET
[2022-05-14 08:30] VITALS: BP 138/73; PULSE 73; RESP 15; TEMP 36.7; O2SAT 95
[2022-05-14 08:58] VITALS: O2SAT 95
[2022-05-14 09:41] VITALS: PULSE 73
[2022-05-14] MEDS: Aspirin 81 MG TAB.CHEW PO (09:41)
[2022-05-14] MEDS: Metoprolol(XL)Succ 50 MG Tablet PO (09:41)
[2022-05-14] MEDS: Pantoprazole Sodium 40 MG Tablet PO (09:41)
[2022-05-14] MEDS: Citalopram 20 MG Tablet PO (09:41)
[2022-05-14] MEDS: Memantine Hydrochloride 5 MG Tablet PO ×2 (09:42→21:19)
[2022-05-14] MEDS: Ensure Plus High Protein 120 ML LIQUID PO ×3 (09:42→16:47)
[2022-05-14 10:10] LABS: Atypical Lymphocyte 1+ %; Differential Comment SCANNED; Platelet Estimate MKD DEC (ADEQ); Reactive Lymphocyte 1+
--- NOTE | 2022-05-14 14:14 | NURSING ---
TEXT SENT TO DR Niño TO LET HIM KNOW THAT PT IS + FOR ROTAVIRUS- HENRIQUE RN IS AWARE
[2022-05-14 15:00] VITALS: BP 138/72; PULSE 76; RESP 15; TEMP 36.6; O2SAT 96
--- NOTE | 2022-05-14 16:56 | PCM.PN.HOSP ---
Subjective Subjective Patient was seen and examined today, I briefly talked with his who was in the room at the time my examination. Patient is no longer having any diarrhea, enteric stool panel came back positive for rotavirus. Patient's states that she does not feel she can take care of him at home and he needs to go to a short-term rehab facility, case management will need to work on placement. Objective Data Objective Data Vital Signs: Vital Signs Temp Pulse Resp BP Pulse Ox O2 Del Method 97.9 F 76 15 138/72 H 96 Room Air 05/14/22 15:00 05/14/22 15:00 05/14/22 15:00 05/14/22 15:00 05/14/22 15:00 05/14/22 15:00 Oxygen Delivery Method Room Air Weight: 60.328 kg Body Mass Index (BMI) 20.1 Intake & Output: Intake and Output for Last 24 Hours 05/12/22 05/13/22 05/14/22 23:59 23:59 23:59 Intake Total 2066.25 / 2066.25 1020 / 1020 Output Total 300 / 500 200 / 200 Balance 1766.25 / 1566.25 820 / 820 Medical Nutrition Assessment Dietitian: Malnutrition Criteria Met Start: 05/13/22 16:54 Freq: Status: Active Protocol: Document 05/13/22 16:54 JUNIOR (Rec: 05/13/22 16:55 [facility] [id number]) Nutrition Malnutrition Evidence of Malnutrition Exists Yes Malnutrition (moderate): Acute Illness/Injury Evidenced By Weight Loss (Severe),Physical Changes (Mild),Physical Changes (Moderate) Clinical Problem Acute Disease or Injury Related Malnutrition Etiology related to physiological changes leading to decreased oral intakes Signs/Symptoms as evidenced by significant weight loss of 4.3% in ~1 week and mild to moderate muscle wasting per NFPA (temples, clavicle, buccal, etc.). Status Active Problem Recommendation Dietitian Recommendations/Changes Continue with Regular diet for liberalization. Order Ensure Plus High Protein TID 120mL w/ medpass to help increase oral intakes. Will reassess oral intakes upon f/u and modify interventions as needed. Lab / Micro Data Result Diagrams: 05/14/22 06:35 05/14/22 06:35 Labs: Laboratory Results - last 24 hr 05/14/22 06:35: WBC 15.4 H, RBC 3.13 L, Hgb 10.3 L, Hct 30.8 L, MCV 98.4 H, MCH 32.9 H, MCHC 33.4 D, RDW Std Deviation 64.5 H, RDW Coeff of Alley 18.2 H, Plt Count 25 L*, Immature Gran % (Auto) 2.900 H, Neut % (Auto) 48.8, Lymph % (Auto) 41.0, [place] % (Auto) 6.9, Eos % (Auto) 0.1, Baso % (Auto) 0.3, Absolute Neuts (auto) 7.5, Absolute Lymphs (auto) 6.33 H, Nucleated RBC % 0.3, Differential Comment SCANNED, Diff Path Review September foll, Atypical Lymphocytes 1+, Reactive Lymphocytes 1+, Platelet Estimate MKD 05/14/22 06:35: Sodium 135 L, Potassium 3.6, Chloride 105, Carbon Dioxide 23.0, Anion Gap 7, BUN 23 H, Creatinine 0.78, Estim Creat Clear Calc 46.92, Est GFR (MDRD) Af Amer 123, Est GFR (MDRD) Non-Af 101, BUN/Creatinine Ratio 29.7 H, Glucose 96, Calcium 8.6, Total Bilirubin 0.90, AST 77 H, ALT 29, Alkaline Phosphatase 443 H, Total Protein 5.7 L, Albumin 2.5 L, Globulin 3.2, Albumin/Globulin Ratio 0.8 L Micro: Microbiology 05/13/22 13:30 Stool Enteric Bacteriology - Final Rotavirus 05/13/22 10:50 Stool Stool Lactoferrin - Final 05/12/22 23:32 Nasal Secretion SARS-CoV-2 & FLU Antigen (Rapid) - Final Physical Exam Const alert and no apparent distress Constitutional Narrative: Patient appears his stated age, he is confused General Appearance: cooperative, well kempt and well developed Orientation / Consciousness: awake HEENT normocephalic, head/scalp atraumatic and moist oral mucous membranes Eyes PERRL, EOMs intact bilaterally and conjunctivae normal Neck supple, no JVD, thyroid normal and no carotid bruits General: trachea midline Resp normal respiratory effort, no retractions, no use of accessory muscles and clear to auscultation bilaterally Auscultation: Negative for rales, rhonchi or wheezes Cardio regular rate, regular rhythm, S1 normal heart sound, S2 normal heart sound, no murmurs, no rub and no gallops GI normal to inspection, nondistended, normoactive bowel sounds, soft to palpation, non-tender and non-distended Extremity normal to inspection and no clubbing, cyanosis or edema Skin no rashes or lesions noted General Skin Exam: no breakdown Neuro oriented x3, CN's II-XII intact bilaterally, moves all extremities, no focal motor deficits and no sensory deficits noted Sensorium / Orientation: awake and alert Speech: speech normal Psych affect normal Assessment & Plan Assessment/Plan (1) Gastroenteritis: PLAN: Plan 1. Acute gastroenteritis secondary to rotavirus-patient is not having any more diarrhea at the present time #2 acute debility secondary to #1-patient is being seen by PT and OT, he will need short-term placement in a prison facility if possible #3 dementia-complicates care, management, recovery, and prognosis #4 hypokalemia-corrected at this time #5 hypothyroidism-patient is on Synthroid #6 essential hypertension-patient will remain on his present medication #7 GERD-patient is on a PPI #8 dehydration-patient will be encouraged to take oral intake. Charges/Coding Visit Charges Inpatient E&M: 42084 Subs Hosp L2
[2022-05-14 21:18] VITALS: BP 136/70; PULSE 75; RESP 18; TEMP 37.1; O2SAT 95
[2022-05-14] MEDS: Atorvastatin Calcium 80 MG Tablet PO (21:19)
[2022-05-15] VITALS (8 sets, daily range): BP systolic 117–145; BP diastolic 59–78; PULSE 78–90; RESP 14–16; TEMP 36.7–37.3; O2SAT 94–97
[2022-05-15] MEDS: Levothyroxine 125 MCG Tablet PO (05:56)
[2022-05-15] MEDS: Menthol/Lanolin/Calamine/Znox 113 GM Tube 1 APPLIC TOPICAL ×3 (05:57→20:49)
[2022-05-15] MEDS: Metoprolol(XL)Succ 50 MG Tablet PO (08:54)
[2022-05-15] MEDS: Pantoprazole Sodium 40 MG Tablet PO (08:55)
[2022-05-15] MEDS: Citalopram 20 MG Tablet PO (08:55)
[2022-05-15] MEDS: Aspirin 81 MG TAB.CHEW PO (08:55)
[2022-05-15] MEDS: Ensure Plus High Protein 120 ML LIQUID PO ×3 (08:56→16:26)
[2022-05-15] MEDS: Memantine Hydrochloride 5 MG Tablet PO ×2 (08:56→20:49)
--- NOTE | 2022-05-15 18:02 | PCM.PN.HOSP ---
Subjective Subjective Patient was seen and examined today, I talked with his who was in the room at the time my examination. Patient is not having any more diarrhea at this time. would like the patient to go to an extended care facility for short-term rehab services. Objective Data Objective Data Vital Signs: Vital Signs Temp Pulse Resp BP Pulse Ox O2 Del Method 98.6 F 84 16 145/75 H 95 Room Air 05/15/22 15:15 05/15/22 15:15 05/15/22 15:15 05/15/22 15:15 05/15/22 15:15 05/15/22 15:15 Oxygen Delivery Method Room Air Weight: 60.328 kg Body Mass Index (BMI) 20.1 Intake & Output: Intake and Output for Last 24 Hours 05/13/22 05/14/22 05/15/22 23:59 23:59 23:59 Intake Total 2066.25 / 2066.25 1020 / 1220 2520 / 2520 Output Total 300 / 500 200 / 400 550 / 550 Balance 1766.25 / 1566.25 820 / 820 1969 / 1969 Medical Nutrition Assessment Dietitian: Malnutrition Criteria Met Start: 05/13/22 16:54 Freq: Status: Active Protocol: Document 05/13/22 16:54 ALTAGRACIA (Rec: 05/13/22 16:55 JUNIOR [id number]) Nutrition Malnutrition Evidence of Malnutrition Exists Yes Malnutrition (moderate): Acute Illness/Injury Evidenced By Weight Loss (Severe),Physical Changes (Mild),Physical Changes (Moderate) Clinical Problem Acute Disease or Injury Related Malnutrition Etiology related to physiological changes leading to decreased oral intakes Signs/Symptoms as evidenced by significant weight loss of 4.3% in ~1 week and mild to moderate muscle wasting per NFPA (temples, clavicle, buccal, etc.). Status Active Problem Recommendation Dietitian Recommendations/Changes Continue with Regular diet for liberalization. Order Ensure Plus High Protein TID 120mL w/ medpass to help increase oral intakes. Will reassess oral intakes upon f/u and modify interventions as needed. Lab / Micro Data Result Diagrams: 05/14/22 06:35 05/14/22 06:35 Labs: Laboratory Results - last 24 hr 05/14/22 06:35: WBC 15.4 H, RBC 3.13 L, Hgb 10.3 L, Hct 30.8 L, MCV 98.4 H, MCH 32.9 H, MCHC 33.4 D, RDW Std Deviation 64.5 H, RDW Coeff of Alley 18.2 H, Plt Count 25 L*, Immature Gran % (Auto) 2.900 H, Neut % (Auto) 48.8, Lymph % (Auto) 41.0, Kemper % (Auto) 6.9, Eos % (Auto) 0.1, Baso % (Auto) 0.3, Absolute Neuts (auto) 7.5, Absolute Lymphs (auto) 6.33 H, Nucleated RBC % 0.3, Differential Comment SCANNED, Diff Path Review May foll, Atypical Lymphocytes 1+, Reactive Lymphocytes 1+, Platelet Estimate MKD APR Micro: Microbiology 05/13/22 13:30 Stool Enteric Bacteriology - Final Rotavirus 05/13/22 10:50 Stool Stool Lactoferrin - Final 05/12/22 23:32 Nasal Secretion SARS-CoV-2 & FLU Antigen (Rapid) - Final Physical Exam Narrative alert and no apparent distress Constitutional Narrative: Patient appears his stated age, he is confused General Appearance: cooperative, well kempt and well developed Orientation / Consciousness: awake HEENT normocephalic, head/scalp atraumatic and moist oral mucous membranes Eyes PERRL, EOMs intact bilaterally and conjunctivae normal Neck supple, no JVD, thyroid normal and no carotid bruits General: trachea midline Resp normal respiratory effort, no retractions, no use of accessory muscles and clear to auscultation bilaterally Auscultation: Negative for rales, rhonchi or wheezes Cardio regular rate, regular rhythm, S1 normal heart sound, S2 normal heart sound, no murmurs, no rub and no gallops GI normal to inspection, nondistended, normoactive bowel sounds, soft to palpation, non-tender and non-distended Extremity normal to inspection and no clubbing, cyanosis or edema Skin no rashes or lesions noted General Skin Exam: no breakdown Neuro oriented x3, CN's II-XII intact bilaterally, moves all extremities, no focal motor deficits and no sensory deficits noted Sensorium / Orientation: awake and alert Speech: speech normal Psych Patient is alert but confused Assessment & Plan Assessment/Plan (1) Gastroenteritis: PLAN: Plan 1. Acute gastroenteritis secondary to rotavirus-patient is not having any more diarrhea at the present time #2 acute debility secondary to #1-patient is being seen by PT and OT, he will need short-term placement in a senior care facility if possible #3 dementia-complicates care, management, recovery, and prognosis #4 hypokalemia-corrected at this time #5 hypothyroidism-patient is on Synthroid #6 essential hypertension-patient will remain on his present medication #7 GERD-patient is on a PPI #8 dehydration-patient will be encouraged to take oral intake. Total clinical time spent by myself addressing the patient's medical issues, reviewing all the data, and collaborating with patient's care team: 25 minutes Charges/Coding Visit Charges Inpatient E&M: 74047 Subs Hosp L1
[2022-05-15] MEDS: Atorvastatin Calcium 80 MG Tablet PO (20:52)
[2022-05-16 03:45] VITALS: BP 154/69; PULSE 62; RESP 14; TEMP 36.6; O2SAT 97
[2022-05-16] MEDS: Menthol/Lanolin/Calamine/Znox 113 GM Tube 1 APPLIC TOPICAL ×3 (06:12→21:25)
[2022-05-16] MEDS: Levothyroxine 125 MCG Tablet PO (06:12)
[2022-05-16] MEDS: Pantoprazole Sodium 40 MG Tablet PO (08:47)
[2022-05-16] MEDS: Ensure Plus High Protein 120 ML LIQUID PO ×3 (08:47→16:34)
[2022-05-16] MEDS: Citalopram 20 MG Tablet PO (08:47)
[2022-05-16] MEDS: Aspirin 81 MG TAB.CHEW PO (08:48)
[2022-05-16 08:59] VITALS: BP 157/72; PULSE 59; RESP 16; TEMP 36.6; O2SAT 96
[2022-05-16 09:01] VITALS: PULSE 60
[2022-05-16] MEDS: Memantine Hydrochloride 5 MG Tablet PO ×2 (09:52→21:24)
[2022-05-16 09:53] VITALS: BP 157/62; PULSE 58
[2022-05-16] MEDS: Metoprolol(XL)Succ 50 MG Tablet PO (09:53)
--- NOTE | 2022-05-16 09:54 | NURSING ---
Dr Niño said to give the metoprolol with heart rate of 58.
--- NOTE | 2022-05-16 11:14 | CASEMGMT ---
Social work SW called pt , Tessa, following update from MD Martinez that requesting SNF for pt. SW left message requesting call back. HOLLY Matute
--- NOTE | 2022-05-16 11:38 | CASEMGMT ---
Social Work? SW in to meet with pt/ following update from that pt will need placement at nursing facility. SW introduced self and role at the hospital. Pt and agreeable to discussing discharge planning. A list of SNF providers including quality and resource use data and consistent with the patient?s preferred geographic region, medical needs, and insurance network were provided from the [employer] Guide. Pt's reviewed list and shared first preference would be [facility]. Second choice would be [facility]. MIKHAIL sent referral to [facility] at [facility]. [facility] able to accept if medicare days are open on pt insurance. Will look at bed situation and let MIKHAIL know if pt can come today or tomorrow as well. PLAN: TCU? HOLLY Matute?
[2022-05-16 13:05] LABS: Absolute Lymphocyte Count 9.05 X10^3/uL (0.83-4.51); Absolute Neutrophil Count 2.9 X10^3/uL (2.0-7.7); Basophil# 0.03 X10^3/uL; Basophil% 0.2 % (0-1); Hematocrit 29.5 % (40-54); Hemoglobin 9.5 g/dL (13.0-16.5); Lymphocyte # 9.05 X10^3/ul (0.83-4.51); Lymphocyte % 63.9 % (19-41); Mean Corp Hgb Conc 32.2 g/dL (32-36); Mean Corpuscular Hgb 31.1 pg (27.0-32.0); Mean Corpuscular Volume 96.7 fL (80-94); Monocyte# 1.76 X10^3/uL; Monocyte% 12.4 % (0-10); NRBC Flagged by Analyzer 0.4 % (0-5); Neutrophil # 2.88 X10^3/uL (2.7-7.7); Neutrophil % 20.3 % (47-70); POSITIVE COUNT YES; POSITIVE DIFFERENTIAL YES; POSITIVE MORPHOLOGY YES; Platelet Count 23 K/mm3 (150-450); RBC Distribution Width CV 17.9 % (11.6-14.6); Red Blood Count 3.05 M/mm3 (4.6-6.2); White Blood Count 14.2 K/mm3 (4.4-11.0)
[2022-05-16 13:06] LABS: Differential Indicated SCAN CRITERIA MET
[2022-05-16 13:19] LABS: Anion Gap 3 (5-15); BUN 18 mg/dL (7-18); BUN/Creat Ratio 25.5 RATIO (10-20); Calcium,Total 8.5 mg/dL (8.5-10.1); Chloride 104 mmol/L (98-107); Creatinine, Serum 0.71 mg/dL (0.70-1.30); EST Glomerular Filtration Rate 113 mL/min (>60); Est Glom Filt Rate - Afr Amer 136 mL/min (>60); Estimated Creatinine Clearance 46.92 ml/min; Glucose 105 mg/dL (74-106); Potassium 4.1 mmol/L (3.5-5.1); Sodium Level 134 mmol/L (136-145)
[2022-05-16 13:44] LABS: Crenated RBC 1+; Differential Comment S; Schistocytes 1+
[2022-05-16 13:45] LABS: Platelet Estimate MKD DEC (ADEQ)
[2022-05-16 14:15] VITALS: BP 138/77; PULSE 80; RESP 16; TEMP 36.7; O2SAT 98
[2022-05-16 15:22] LABS: Pathologist Review Reviewed
--- NOTE | 2022-05-16 19:18 | PCM.PN.HOSP ---
Subjective Subjective Patient was seen and examined, he appears alert but confused today, he does not appear to be in any distress, I talked with his . Before TCU would except the patient, they requested that his CBC be repeated. It appears that the patient has seen Dr. 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 I talked to Dr. Mendez by phone tonight, he is agreed that the patient is appropriate to come to TCU and I will make arrangements tomorrow to transfer the patient. Objective Data Objective Data Vital Signs: Vital Signs Temp Pulse Resp BP Pulse Ox O2 Del Method 98.1 F 80 16 138/77 H 98 Room Air 05/16/22 14:15 05/16/22 14:15 05/16/22 14:15 05/16/22 14:15 05/16/22 14:15 05/16/22 14:15 Oxygen Delivery Method Room Air Weight: 60.328 kg Body Mass Index (BMI) 20.1 Intake & Output: Intake and Output for Last 24 Hours 05/14/22 05/15/22 05/16/22 23:59 23:59 23:59 Intake Total 1020 / 1220 2520 / 2520 1922.5 / 1922.5 Output Total 200 / 400 760 / 1160 775 / 775 Balance 820 / 820 1760 / 1360 1147.5 / 1147.5 Medical Nutrition Assessment Dietitian: Malnutrition Criteria Met Start: 05/13/22 16:54 Freq: Status: Active Protocol: Document 05/13/22 16:54 JUNIOR (Rec: 05/13/22 16:55 [facility] [id number]) Nutrition Malnutrition Evidence of Malnutrition Exists Yes Malnutrition (moderate): Acute Illness/Injury Evidenced By Weight Loss (Severe),Physical Changes (Mild),Physical Changes (Moderate) Clinical Problem Acute Disease or Injury Related Malnutrition Etiology related to physiological changes leading to decreased oral intakes Signs/Symptoms as evidenced by significant weight loss of 4.3% in ~1 week and mild to moderate muscle wasting per NFPA (temples, clavicle, buccal, etc.). Status Active Problem Recommendation Dietitian Recommendations/Changes Continue with Regular diet for liberalization. Order Ensure Plus High Protein TID 120mL w/ medpass to help increase oral intakes. Will reassess oral intakes upon f/u and modify interventions as needed. Lab / Micro Data Result Diagrams: 05/16/22 12:54 05/16/22 12:54 Labs: Laboratory Results - last 24 hr 05/12/22 23:19: Diff Path Review Reviewed 05/16/22 12:54: WBC 14.2 H, RBC 3.05 L, Hgb 9.5 L, Hct 29.5 L, MCV 96.7 H, MCH 31.1, MCHC 32.2, RDW Std Deviation 63.0 H, RDW Coeff of Alley 17.9 H, Plt Count 23 L*, Immature Gran % (Auto) 3.200 H, Neut % (Auto) 20.3 L, Lymph % (Auto) 63.9 H, Real % (Auto) 12.4 H, Eos % (Auto) 0.0, Baso % (Auto) 0.2, Absolute Neuts (auto) 2.9, Absolute Lymphs (auto) 9.05 H, Nucleated RBC % 0.4, Differential Comment S, Diff Path Review May foll, Platelet Estimate MKD DEC, Crenated Cell 1+, Schistocytes 1+ 05/16/22 12:54: Sodium 134 L, Potassium 4.1, Chloride 104, Carbon Dioxide 27.0, Anion Gap 3 L, BUN 18, Creatinine 0.71, Estim Creat Clear Calc 46.92, Est GFR (MDRD) Af Amer 136, Est GFR (MDRD) Non-Af 113, BUN/Creatinine Ratio 25.5 H, Glucose 105, Calcium 8.5 Micro: Microbiology 05/13/22 13:30 Stool Enteric Bacteriology - Final Rotavirus 05/13/22 10:50 Stool Stool Lactoferrin - Final 05/12/22 23:32 Nasal Secretion SARS-CoV-2 & FLU Antigen (Rapid) - Final Physical Exam Narrative alert and no apparent distress Constitutional Narrative: Patient appears his stated age, he is confused General Appearance: cooperative, well kempt and well developed Orientation / Consciousness: awake HEENT normocephalic, head/scalp atraumatic and moist oral mucous membranes Eyes PERRL, EOMs intact bilaterally and conjunctivae normal Neck supple, no JVD, thyroid normal and no carotid bruits General: trachea midline Resp normal respiratory effort, no retractions, no use of accessory muscles and clear to auscultation bilaterally Auscultation: Negative for rales, rhonchi or wheezes Cardio regular rate, regular rhythm, S1 normal heart sound, S2 normal heart sound, no murmurs, no rub and no gallops GI normal to inspection, nondistended, normoactive bowel sounds, soft to palpation, non-tender and non-distended Extremity normal to inspection and no clubbing, cyanosis or edema Skin no rashes or lesions noted General Skin Exam: no breakdown Neuro oriented x3, CN's II-XII intact bilaterally, moves all extremities, no focal motor deficits and no sensory deficits noted Sensorium / Orientation: awake and alert Speech: speech normal Psych Patient is alert but confused Assessment & Plan Assessment/Plan (1) Dehydration: (2) Gastroenteritis: PLAN: Plan 1. Acute gastroenteritis secondary to rotavirus-the patient has had no diarrhea #2 acute debility secondary to #1-patient is being seen by PT and OT, he will be going to TCU would we receive approval #3 dementia-complicates care, management, recovery, and prognosis #4 hypokalemia-corrected at this time #5 hypothyroidism-patient is on Synthroid #6 essential hypertension-patient will remain on his present medication #7 GERD-patient is on a PPI #8 dehydration-patient will be encouraged to take oral intake. 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
[2022-05-16 21:08] VITALS: BP 128/66; PULSE 62; RESP 14; TEMP 36.8; O2SAT 96
[2022-05-16] MEDS: Atorvastatin Calcium 80 MG Tablet PO (21:24)
[2022-05-17 02:32] VITALS: BP 119/59; PULSE 60; RESP 14; TEMP 36.9; O2SAT 95
[2022-05-17] MEDS: Menthol/Lanolin/Calamine/Znox 113 GM Tube 1 APPLIC TOPICAL ×2 (05:35→16:42)
[2022-05-17] MEDS: Levothyroxine 125 MCG Tablet PO (05:35)
[2022-05-17 07:50] VITALS: O2SAT 95
[2022-05-17 08:01] VITALS: BP 145/81; PULSE 69
[2022-05-17] MEDS: Aspirin 81 MG TAB.CHEW PO (08:01)
[2022-05-17] MEDS: Pantoprazole Sodium 40 MG Tablet PO (08:01)
[2022-05-17] MEDS: Metoprolol(XL)Succ 50 MG Tablet PO (08:01)
[2022-05-17] MEDS: Ensure Plus High Protein 120 ML LIQUID PO ×3 (08:01→16:42)
[2022-05-17] MEDS: Citalopram 20 MG Tablet PO (08:01)
--- NOTE | 2022-05-17 08:31 | CASEMGMT ---
Social Work SW spoke to pt and provided update that TCU able to accept pt. voiced understanding. SW explained no bed open yet this morning but should be available later this day. SW discussed intent to inform when more info regard when bed is open. understanding. PLAN: TCU, when bed opens HOLLY Matute
[2022-05-17 08:41] VITALS: BP 145/81; PULSE 69; RESP 16; TEMP 36.7; O2SAT 95
[2022-05-17 09:28] LABS: Pathologist Review Reviewed
[2022-05-17] MEDS: Memantine Hydrochloride 5 MG Tablet PO (11:11)
[2022-05-17 13:27] LABS: Pathologist Review Reviewed
[2022-05-17 15:58] VITALS: O2SAT 95
--- NOTE | 2022-05-17 16:37 | PCM.TXEXTCAR ---
Diet Diet Order/Speech Therapy: 05/13/22 11:30 Diet: Regular - General Routine Orders/Code Status Code Status: DNRCC-A (with intubation) Wound(s) mid back over spine/burn from heating pad: Wound Type: Burn Therapies Weight Bearing: Full weight bearing Physical Therapy: Eval and Treat Occupational Therapy: Eval and Treat Speech Therapy: Eval and Treat Problem/Diagnosis (1) Gastroenteritis: Status: Acute Code(s): K52.9 - Noninfective gastroenteritis and colitis, unspecified Plan 1. Acute gastroenteritis secondary to rotavirus-the patient has had no diarrhea and 2 days #2 acute debility secondary to #1-patient is being seen by PT and OT, he has been accepted at TCU #3 dementia-complicates care, management, recovery, and prognosis #4 hypokalemia-corrected at this time #5 hypothyroidism-patient is on Synthroid #6 essential hypertension-patient will remain on his present medication #7 GERD-patient is on a PPI #8 dehydration-patient will be encouraged to take oral intake. 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-supportive care only at this time Total clinical time spent by myself addressing the patient's medical issues, reviewing all the data, and collaborating with patient's care team: 35 minutes Allergies/Procedures Done in Hospital Allergies cefdinir [From Omnicef] Allergy (Verified 05/03/22 14:38) Rash Procedures: None Type of Care/Length of Stay Estimated LOS: Convalescent Care Less Than 30 days Type of Care Needed: Skilled Rehab Potential: Good Prognosis: Good Additional Orders/Day of Discharge H&P will serve as current which was dated: 05/13/22 Day of Discharge: 05/17/22 Dietary and Speech Recommendations Dietitian Recommendations/Changes: Continue with Regular diet for liberalization. Order Ensure Plus High Protein TID 120mL w/ medpass to help increase oral intakes. Will reassess oral intakes upon f/u and modify interventions as needed. Discharge Plan Admission Admit Date/Time: 05/13/22 11:33 Primary Reason for Your Visit: rotavirus gastroenteritis, malnutrition, dehydration Attending Provider: Yogesh Martinez Primary Care Provider: Yogesh Carlson Consulting Providers: Parveen Gupta Discharge Orders/Prescriptions Prescriptions: New memantine 5 mg Tablet 5 mg PO BID Qty: 0 0RF menthol-zinc oxide [Calmoseptine] 0.44-20.6 % Ointment 1 applic topical TID Qty: 0 0RF Protocol: *Topical Application Instructions APPLICATION INSTRUCTIONS: scrotum/groin/rectal areas Ensure Plus High Protein 0.08 gram-1.5 kcal/mL Liquid 120 ml PO TIDCM Qty: 0 0RF Continued atorvastatin 80 MG tablet 80 mg PO DAILY Label Comments: cholesterol omeprazole 40 MG capsule 40 mg PO DAILY Label Comments: reflux citalopram 20 MG tablet 20 mg PO DAILY Label Comments: depression metoprolol succinate 50 MG tablet 50 mg PO DAILY aspirin 81 MG tablet 81 mg PO DAILY@0800 levothyroxine 125 MCG tablet 125 mcg PO DAILY Label Comments: TAKE 1 TABLET BY MOUTH ONCE DAILY Discontinued memantine 5 mg tablet 5 mg PO QA Referrals / Follow Up: Yogesh Carlson DO [Primary Care Provider] - Disposition Disposition (needs filled in before D/C Order can be placed): [facility]
--- NOTE | 2022-05-17 16:44 | PCM.DC.SUM ---
Providers Date of Admission: 05/13/22 Date of Discharge: 05/17/22 Primary Care Physician: Dr. Yogesh Carlson DO Reason For Visit: ACUTE GASTROENTERITIS Diagnosis Discharge Diagnosis (1) Gastroenteritis: Status: Acute Code(s): K52.9 - Noninfective gastroenteritis and colitis, unspecified Plan 1. Acute gastroenteritis secondary to rotavirus-the patient has had no diarrhea and 2 days #2 acute debility secondary to #1-patient is being seen by PT and OT, he has been accepted at TCU #3 dementia-complicates care, management, recovery, and prognosis #4 hypokalemia-corrected at this time #5 hypothyroidism-patient is on Synthroid #6 essential hypertension-patient will remain on his present medication #7 GERD-patient is on a PPI #8 dehydration-patient will be encouraged to take oral intake. 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-supportive care only at this time #10 acute moderate protein and caloric malnutrition as evidenced by significant weight loss of 4.3% in 1 week and mild to moderate muscle wasting per NFPA, continue with regular diet for liberalization, order Ensure Plus high-protein 3 times daily to help increase oral intake, nutritional services will reassess oral intake upon follow-up Medications at Discharge Home Medications atorvastatin 80 mg tablet 80 mg PO DAILY cholesterol 11/17/16 citalopram 20 mg tablet 20 mg PO DAILY depression 11/17/16 omeprazole 40 mg capsule,delayed release 40 mg PO DAILY gerd 11/17/16 metoprolol succinate 50 mg tablet,extended release 24 hr 50 mg PO DAILY blood pressure 11/24/16 aspirin 81 mg tablet,delayed release 81 mg PO DAILY@0800 06/30/20 levothyroxine 125 mcg tablet 125 mcg PO DAILY THYROID 06/30/20 food supplemt, lactose-reduced 0.08 gram-1.5 kcal/mL oral liquid (Ensure Plus High Protein) 120 ml PO TIDCM #0 mL 05/17/22 memantine 5 mg tablet 5 mg PO BID #0 tabs 05/17/22 menthol 0.44 %-zinc oxide 20.6 % topical ointment (Calmoseptine) 1 applic topical TID #0 grams 05/17/22 Hospital Course Operations None Procedures None Summary of Care Provided Minutes Spent on Discharge: 31 Hospital Course: This 86-year-old white male was brought to the emergency room at [facility] with chief complaint of generalized weakness and diarrhea, labs were obtained in the emergency room patient was found to be dehydrated and debilitated. Patient was admitted to [facility], enteric stool panel resulted positive for rotavirus, patient's diarrhea resolved, he was seen by PT and OT and he was felt to benefit from temporary placement in group home facility- agreed to this. TCU agreed to take the patient. On 05/17/2022, patient was seen and examined:alert and no apparent distress Constitutional Narrative: Patient appears his stated age, he is confused General Appearance: cooperative, well kempt and well developed Orientation / Consciousness: awake HEENT normocephalic, head/scalp atraumatic and moist oral mucous membranes Eyes PERRL, EOMs intact bilaterally and conjunctivae normal Neck supple, no JVD, thyroid normal and no carotid bruits General: trachea midline Resp normal respiratory effort, no retractions, no use of accessory muscles and clear to auscultation bilaterally Auscultation: Negative for rales, rhonchi or wheezes Cardio regular rate, regular rhythm, S1 normal heart sound, S2 normal heart sound, no murmurs, no rub and no gallops GI normal to inspection, nondistended, normoactive bowel sounds, soft to palpation, non-tender and non-distended Extremity normal to inspection and no clubbing, cyanosis or edema Skin no rashes or lesions noted General Skin Exam: no breakdown Neuro oriented x3, CN's II-XII intact bilaterally, moves all extremities, no focal motor deficits and no sensory deficits noted Sensorium / Orientation: awake and alert Speech: speech normal Psych Patient is alert but confused Patient was seen and examined on 05/17/2022 and he was discharged to TCU in stable condition. Total clinical time spent by myself addressing the patient's medical issues, reviewing all the data, and collaborating with patient's care team: 31 minutes Medical Records Data Medical Nutrition Assessment Dietitian: Malnutrition Criteria Met Start: 05/13/22 16:54 Freq: Status: Active Protocol: Document 05/13/22 16:54 JUNIOR (Rec: 05/13/22 16:55 [facility] [id number]) Nutrition Malnutrition Evidence of Malnutrition Exists Yes Malnutrition (moderate): Acute Illness/Injury Evidenced By Weight Loss (Severe),Physical Changes (Mild),Physical Changes (Moderate) Clinical Problem Acute Disease or Injury Related Malnutrition Etiology related to physiological changes leading to decreased oral intakes Signs/Symptoms as evidenced by significant weight loss of 4.3% in ~1 week and mild to moderate muscle wasting per NFPA (temples, clavicle, buccal, etc.). Status Active Problem Recommendation Dietitian Recommendations/Changes Continue with Regular diet for liberalization. Order Ensure Plus High Protein TID 120mL w/ medpass to help increase oral intakes. Will reassess oral intakes upon f/u and modify interventions as needed. Weight / BMI Weight Weight: 60.328 kg Body Mass Index (BMI) 20.1 ABG / Lab / Microbiology Data Result Diagrams: 05/16/22 12:54 05/16/22 12:54 Laboratory: Laboratory Results - last 24 hr 05/14/22 06:35: Diff Path Review Reviewed 05/16/22 12:54: Diff Path Review Reviewed Microbiology: Microbiology 05/17/22 Unknown Nasal Secretion SARS-CoV-2 Antigen (Rapid) - Final 05/13/22 13:30 Stool Enteric Bacteriology - Final Rotavirus 05/13/22 10:50 Stool Stool Lactoferrin - Final 05/12/22 23:32 Nasal Secretion SARS-CoV-2 & FLU Antigen (Rapid) - Final Meaningful Use Info Meaningful Use Diagnoses (Choose all that apply): None applicable Discharge Plan Admission Admit Date/Time: 05/13/22 11:33 Primary Reason for Your Visit: rotavirus gastroenteritis, malnutrition, dehydration Attending Provider: Yogesh Martinez Primary Care Provider: Yogesh Carlson Consulting Providers: Parveen Gupta Discharge Orders/Prescriptions Prescriptions: New memantine 5 mg Tablet 5 mg PO BID Qty: 0 0RF menthol-zinc oxide [Calmoseptine] 0.44-20.6 % Ointment 1 applic topical TID Qty: 0 0RF Protocol: *Topical Application Instructions APPLICATION INSTRUCTIONS: scrotum/groin/rectal areas Ensure Plus High Protein 0.08 gram-1.5 kcal/mL Liquid 120 ml PO TIDCM Qty: 0 0RF Continued atorvastatin 80 MG tablet 80 mg PO DAILY Label Comments: cholesterol omeprazole 40 MG capsule 40 mg PO DAILY Label Comments: reflux citalopram 20 MG tablet 20 mg PO DAILY Label Comments: depression metoprolol succinate 50 MG tablet 50 mg PO DAILY aspirin 81 MG tablet 81 mg PO DAILY@0800 levothyroxine 125 MCG tablet 125 mcg PO DAILY Label Comments: TAKE 1 TABLET BY MOUTH ONCE DAILY Discontinued memantine 5 mg tablet 5 mg PO QAM Referrals / Follow Up: Yogesh Carlson DO [Primary Care Provider] - Disposition Disposition (needs filled in before D/C Order can be placed): [facility] Charges/Coding Visit Charges Inpatient E&M: 67792 Disch Hosp >30min
--- NOTE | 2022-05-17 17:47 | NURSING ---
Report called to Dot in TCU.
[2022-05-17 18:35] VITALS: BP 145/81; PULSE 69; RESP 16; TEMP 36.7; O2SAT 95
[2022-05-19 18:23] LABS: Giardia Lamblia, Stool EIA Negative (Negative)
== END 2022-05-17 19:05 | DRG 392 ==
LOC: ED 05-13 03:32 → MS3 05-13 04:51
PROVIDERS: Admitting Provider Hospitalist; Emergency Provider Emergency Medicine; PCP Family Medicine; Visit Provider Internal Medicine
DX: A08.0 Rotaviral enteritis (principal); E44.0 Moderate protein-calorie malnutrition; D69.3 Immune thrombocytopenic purpura; C91.10 Chronic lymphocytic leukemia of B-cell type not having achieved remission; E86.0 Dehydration; E03.9 Hypothyroidism, unspecified; F03.90 Unspecified dementia, unspecified severity, without behavioral disturbance, psychotic disturbance, mood disturbance, and anxiety; E78.00 Pure hypercholesterolemia, unspecified; I25.10 Atherosclerotic heart disease of native coronary artery without angina pectoris; N18.9 Chronic kidney disease, unspecified; K21.9 Gastro-esophageal reflux disease without esophagitis; I12.9 Hypertensive chronic kidney disease with stage 1 through stage 4 chronic kidney disease, or unspecified chronic kidney disease; E87.6 Hypokalemia; I25.2 Old myocardial infarction; W19.XXXA Unspecified fall, initial encounter; M54.50 Low back pain, unspecified; R53.81 Other malaise; Z66 Do not resuscitate; Z68.20 Body mass index [BMI] 20.0-20.9, adult; Z79.82 Long term (current) use of aspirin; Z79.899 Other long term (current) drug therapy; Z87.891 Personal history of nicotine dependence
CPT/HCPCS: 36415; 80048; 80053; 80076; 83630; 83690; 83735; 85025; 87329; 87426; 87428; 87506; 97110; 97162; 97165; 97530; 97535; 97802; 99285; J7030; J7120

== ENCOUNTER 2022-05-17 19:00 | Inpatient (IN) | payer MEDICARE, OTHER, SELFPAY ==
[2022-05-17 19:16] VITALS: BP 127/68; PULSE 71; RESP 18; TEMP 36.6; O2SAT 96; O2SAT 98; BMI 20.7
--- NOTE | 2022-05-17 19:51 | HP.PCM_ITS ---
HPI - General General Date of Admission: 05/17/22 Date of Service: 05/18/22 Chief Complaint: Here for rehabilitation. HPI Narrative 05/13/2022 SHIRLEY MCKNIGHT, is a 86 Male who presents to [facility] [place] Emergency Department with nausea, vomiting, diarrhea. Sick stomach for 1-2 days, nausea, vomiting, diarrhea. Weak, unable to stand, squad called. Low grade fever, dehydrated. WBC 14.7. IV fluids given, felt better, but unable to walk. 05/13/2022 Admit to Hospital. LR with 40meq potassium chloride IV, Zofran IV as needed, stool studies for gastroenteritis. PT/OT for debility. 05/13/2022 Fall, landed on back, no serious injury. 05/14/2022 Diarrhea resolved. Enteric panel positive rotavirus. unable to care for him at home. PT/OT for SNF. 05/15/2022 requests short term SNF. 05/16/2022 Alert, confused. Elevated WBC secondary to chronic lymphocytic leukemia per Dr. Ga. 05/17/2022 Admit to TCU with debility, here for rehabilitation, strengthening, prior to discharge home with . 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 Chronic kidney disease Colitis Coronary arteriosclerosis Gastroesophageal reflux disease with hiatal hernia GERD (gastroesophageal reflux disease) Hematuria Heme positive stool HTN (hypertension) hypercholesterolemia Hyperlipidemia Hypothyroid Iron (Fe) deficiency anemia Lymphocytosis Myocardial infarction Osteoarthritis of knee Prostate nodule Splenomegaly Thrombocytopenia Home Medications atorvastatin 80 mg tablet 80 mg PO DAILY cholesterol 11/17/16 [History Last Taken 06/30/20] citalopram 20 mg tablet 20 mg PO DAILY depression 11/17/16 [History Last Taken 06/30/20] omeprazole 40 mg capsule,delayed release 40 mg PO DAILY gerd 11/17/16 [History L ast Taken 06/30/20] metoprolol succinate 50 mg tablet,extended release 24 hr 50 mg PO DAILY blood pr essure 11/24/16 [History Last Taken 06/30/20] aspirin 81 mg tablet,delayed release 81 mg PO DAILY@0800 heart health 06/30/20 [History Last Taken 06/30/20] levothyroxine 125 mcg tablet 125 mcg PO DAILY THYROID 06/30/20 [History Last Taken 06/30/20] food supplemt, lactose-reduced 0.08 gram-1.5 kcal/mL oral liquid (Ensure Plus High Protein) 120 ml PO TIDCM nutritional supplement 05/17/22 [History Last Taken Unknown] memantine 5 mg tablet 5 mg PO BID memory 05/17/22 [History Last Taken Unknown] menthol 0.44 %-zinc oxide 20.6 % topical ointment (Calmoseptine) 1 applic topical TID skin protectant 05/17/22 [History Last Taken Unknown] Allergy/AdvReac Type Severity Reaction Status Date / Time cefdinir [From Omnicef] Allergy Rash Verified 05/03/22 14:38 Family History Father Heart disease Mother Breast cancer Brother COPD (chronic obstructive pulmonary disease) Surgical History History of angioplasty S/P TURP Social History household members: spouse current occupational status: retired current occupation: [employer] Smoking Status: Former smoker Tobacco: How many years used: 15 how long ago did patient quit smokin years alcohol intake: former details: socially substance use type: does not use ROS Constitutional Constitutional: Denies chills, fever(s) or weight gain ENT HEENT: Denies headache(s), nasal congestion or nasal discharge Cardiovascular Cardiovascular: Denies chest pain or palpitations Respiratory/Chest Respiratory/Chest: Denies cough, excessive phlegm production or shortness of breath with exertion Gastrointestinal Gastrointestinal: Denies abdominal pain, nausea or vomiting Genitourinary Genitourinary: Denies dysuria Musculoskeletal Musculoskeletal: Denies joint pain or joint swelling Integumentary Integumentary: Denies rash or wounds Neurologic Neurologic: Denies focal weakness, numbness or tingling Psychiatric Psychiatric: Denies anxiety, auditory hallucinations, depression, homicidal ideation or suicidal ideation Vital Signs Vital Signs Vital Signs: 05/17/22 19:16 Temperature 97.8 F Temperature Source Temporal Pulse Rate 71 Respiratory Rate 18 Blood Pressure 127/68 H Blood Pressure Mean 87 Blood Pressure Source Monitor Blood Pressure Position Semi-Fowlers Blood Pressure Location Right Arm Pulse Ox 98 Oxygen Delivery Method Room Air Physical Exam Const alert General Appearance: cooperative HEENT normocephalic Eyes PERRL and EOMs intact bilaterally Neck supple, no JVD and no carotid bruits Resp normal respiratory effort, normal air movement and clear to auscultation bilaterally Cardio regular rate and regular rhythm GI normal to inspection, nondistended, normoactive bowel sounds, non-tender and non-distended Extremity normal capillary refill General Extremity: Negative for edema Skin no rashes or lesions noted General Skin Exam: no breakdown Psych affect normal Appearance: appropriate Results Lab / Micro Data Result Diagrams: 05/18/22 05:41 05/18/22 05:41 Assessment & Plan Assessment/Plan (1) Debility: (2) Dehydration: (3) Gastroenteritis: (4) Nausea vomiting and diarrhea: (5) Rotavirus enteritis: (6) Hypertension: (7) Hyperlipidemia: (8) Thrombocytopenia: (9) Depression: (10) GERD (gastroesophageal reflux disease): (11) Hypothyroidism: (12) Coronary artery disease: (13) Alzheimer disease: PLAN: Plan 86 year old male with below past medical history hospitalized for viral gastroenteritis secondary to rotavirus, dehydration, admitted to TCU with debility, here for rehabilitation, strengthening, prior to discharge home with . * Debility - PT/OT. * Pain - Tylenol 1000mg q6h prn pain (1-10). * Bowel - senna/colace 1 tablet bid prn, MOM 30ml po x 1 prn. * Adult immunization - Administer pneumonia vaccine, covid19 vaccine, flu vaccine. * DVT prophylaxis - Hold. * Coronary artery disease - Metoprolol succinate 50mg daily, Aspirin 81mg daily. * Hyperlipidemia - Atorvastatin 80mg qhs. * Depression - Citalopram 20mg daily, stable chronic meterman use, GDR not anastacio mmended. * Nutrition - Ensure Plus 120ml tidcm. * Hypothyroidism - Levothyroxine 125mcg daily. * Alzheimer Disease - Memantine 5mg bid. * Skin irritation - Calmoseptine topical tid. * GERD - Pantoprazole 40mg daily. * CLL - WBC elevated, Forward results to Dr. Ga. * Thrombocytopenia - Platelets low, Forward results to Dr. Ga.
[2022-05-17] MEDS: Menthol/Lanolin/Calamine/Znox 113 GM Tube 1 APPLIC TOPICAL (22:48)
[2022-05-18] MEDS: Menthol/Lanolin/Calamine/Znox 113 GM Tube 1 APPLIC TOPICAL ×3 (04:27→19:42)
[2022-05-18] MEDS: Pantoprazole Sodium 40 MG Tablet PO (04:29)
[2022-05-18] MEDS: Memantine Hydrochloride 5 MG Tablet PO ×2 (04:29→17:19)
[2022-05-18] MEDS: Levothyroxine 125 MCG Tablet PO (04:29)
[2022-05-18] MEDS: Citalopram 20 MG Tablet PO (04:30)
[2022-05-18 04:36] VITALS: BP 86/36; PULSE 60; RESP 17; TEMP 36.7; O2SAT 96
[2022-05-18 05:48] VITALS: BP 121/64; PULSE 64
[2022-05-18] MEDS: Metoprolol(XL)Succ 50 MG Tablet PO (05:48)
[2022-05-18 05:53] LABS: Absolute Lymphocyte Count 15.53 X10^3/uL (0.83-4.51); Absolute Neutrophil Count 2.9 X10^3/uL (2.0-7.7); Basophil# 0.05 X10^3/uL; Basophil% 0.2 % (0-1); Eosinophil# 0.01 X10^3/uL; Hematocrit 29.5 % (40-54); Hemoglobin 9.2 g/dL (13.0-16.5); Lymphocyte # 15.53 X10^3/ul (0.83-4.51); Lymphocyte % 75.3 % (19-41); Mean Corp Hgb Conc 31.2 g/dL (32-36); Mean Corpuscular Hgb 31.9 pg (27.0-32.0); Mean Corpuscular Volume 102.4 fL (80-94); Monocyte% 8.7 % (0-10); NRBC Flagged by Analyzer 0.3 % (0-5); Neutrophil # 2.89 X10^3/uL (2.7-7.7); Neutrophil % 14.2 % (47-70); POSITIVE COUNT YES; POSITIVE DIFFERENTIAL YES; POSITIVE MORPHOLOGY YES; RBC Distribution Width CV 17.8 % (11.6-14.6); RBC Distribution Width SD 67.4 fl (35.1-43.9); Red Blood Count 2.88 M/mm3 (4.6-6.2); White Blood Count 20.6 K/mm3 (4.4-11.0)
[2022-05-18 06:00] LABS: Differential Indicated SCAN CRITERIA MET; Platelet Count 23 K/mm3 (150-450)
[2022-05-18 06:27] LABS: Anion Gap 7 (5-15); BUN 13 mg/dL (7-18); BUN/Creat Ratio 16.1 RATIO (10-20); Calcium,Total 8.1 mg/dL (8.5-10.1); Chloride 104 mmol/L (98-107); Creatinine, Serum 0.81 mg/dL (0.70-1.30); EST Glomerular Filtration Rate 97 mL/min (>60); Est Glom Filt Rate - Afr Amer 117 mL/min (>60); Estimated Creatinine Clearance 57.62 ml/min; Glucose 80 mg/dL (74-106); Potassium 4.2 mmol/L (3.5-5.1); Sodium Level 134 mmol/L (136-145)
[2022-05-18 07:11] LABS: Acanthocytes RARE; Anisocytosis 1+; Atypical Lymphocyte 2+ %; Differential Comment SCANNED; Platelet Estimate MKD DEC (ADEQ)
[2022-05-18] MEDS: Ensure Plus High Protein 120 ML LIQUID PO ×2 (08:07→17:20)
[2022-05-18] MEDS: Aspirin E.C. 81 MG Tablet PO (08:07)
[2022-05-18] MEDS: Tuberculin,Purif.prot.deriv. 50 TU/ML Vial 0.1 ML ID (10:34)
[2022-05-18 11:00] VITALS: RESP 16
--- NOTE | 2022-05-18 11:47 | NURSING ---
Call made to [facility] for consult thrombocytopenia & CLL, Dr Ga not in office, will consult Dr Barba and return call
[2022-05-18 15:41] VITALS: BP 107/55; PULSE 61; RESP 16; TEMP 36.4; O2SAT 98
--- NOTE | 2022-05-18 16:39 | CASEMGMT ---
Social Work Met with patient to complete assessment. present. Introduced self and role. Pt very drowsy in bed but participate in some assessment questions. completed the rest. Confirmed DNR-CCA, no intubation. MOLST not completed d/t pt cognition. reports pt is pleasant, easy-going, and independent at home. 's goal is for pt to return home at PLOF. Educated to Medicare benefit. Encouraged to contact secondary insurance to ensure copay coverage. SW to continue to follow for DC planning. 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
--- NOTE | 2022-05-18 18:24 | ONC.CONSULT ---
Assessment & Plan Assessment/Plan (1) Thrombocytopenia: Status: Acute Code(s): D69.6 - Thrombocytopenia, unspecified Plan: As evidenced by platelet count of 23,000. 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 Indications for transfusion support would be platelet count 10,000 or less than 20,000 if patient were to develop an overt episode of bleeding. Patient is not endorsing any active bleeding at this time thus can be watchful. Advise repeat CBC daily. May consider short course of steroids in the event platelets were to further decline. (2) Anemia: Status: Chronic Code(s): D64.9 - Anemia, unspecified Plan: Hgb 9.2 today. Anemia is chronic, but typically normocytic. Given history of hypothyroidism, obtain TSH. (3) Lymphocytosis: Status: Acute Code(s): D72.820 - Lymphocytosis (symptomatic) Plan: Further elevated from baseline d/t acute viral illness. Continue to monitor. (4) Elevated alkaline phosphatase level: Status: Acute Code(s): R74.8 - Abnormal levels of other serum enzymes Plan: To reschedule bone scan to be obtained in the outpatient setting. Case was discussed with Dr. Ga who was in agreement with aforementioned plan. We will continue to follow. HPI Consult Data Date of Service:: 05/18/22 Attending: Dr. Elver Mendez MD Chief Complaint Chief Complaint: thrombocytopenia History of Present Illness History of Present Illness: 86-year-old gentleman with incidentally noted lymphocytosis April 2022, with a chronic normocytic anemia and chronic moderately severe thrombocytopenia, and mild enlargement of the spleen (not palpable but 14.6 cm by ultrasound) without B symptoms or lymphadenopathy. Initial hematology work up showed no evidence of iron, B12 or thyroid deficiencies or hemolysis. Incidentally, a persistent elevation of alkaline phosphatase with a normal GGT consistent with a bone origin was noted and concern raised for metastatic bone disease or a benign etiology such as Paget's. A bone scan was scheduled in the ambulatory setting however patient was unable to make that appointment due to current admission. Mr. Malin developed nausea and vomiting and diarrhea which prompted presentation to [facility] ED on 05/13/2022. CBC showed white blood cell count 14.7(Baseline 15-16), hemoglobin 11.3 (baseline 11) and platelet count 35,000 (baseline between 50 and 60,000). Was found to be dehydrated and ultimately admitted for acute debility, later diagnostics confirmed acute gastroenteritis secondary to rotavirus. He was transferred to TCU unit on 05/17/2022 with plans for physical therapy and eventual discharge home. A consult has been requested to address platelet count 23,000 today. Upon entering the room patient is sitting upright in bed with spouse at the bedside. He is slow to respond to assessment questions, occasionally does not verbally respond to assessment questions but looks to spouse to answer for him. He specifically denies any episodes of overt bleeding during this admission including epistaxis, hematuria, melena hematochezia. Does bruise easily. Further denies any chest pain, exertional dyspnea, palpitations. 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 Chronic kidney disease Colitis Coronary arteriosclerosis Gastroesophageal reflux disease with hiatal hernia GERD (gastroesophageal reflux disease) Hematuria Heme positive stool HTN (hypertension) hypercholesterolemia Hyperlipidemia Hypothyroid Iron (Fe) deficiency anemia Lymphocytosis Myocardial infarction Osteoarthritis of knee Prostate nodule Splenomegaly Thrombocytopenia Home Medications atorvastatin 80 mg tablet 80 mg PO DAILY cholesterol 11/17/16 [History Last Taken 06/30/20] citalopram 20 mg tablet 20 mg PO DAILY depression 11/17/16 [History Last Taken 06/30/20] omeprazole 40 mg capsule,delayed release 40 mg PO DAILY gerd 11/17/16 [History Last Taken 06/30/20] metoprolol succinate 50 mg tablet,extended release 24 hr 50 mg PO DAILY blood pressure 11/24/16 [History Last Taken 06/30/20] aspirin 81 mg tablet,delayed release 81 mg PO DAILY@0800 heart health 06/30/20 [History Last Taken 06/30/20] levothyroxine 125 mcg tablet 125 mcg PO DAILY THYROID 06/30/20 [History Last Taken 06/30/20] food supplemt, lactose-reduced 0.08 gram-1.5 kcal/mL oral liquid (Ensure Plus High Protein) 120 ml PO TIDCM nutritional supplement 05/17/22 [History Last Taken Unknown] memantine 5 mg tablet 5 mg PO BID memory 05/17/22 [History Last Taken Unknown] menthol 0.44 %-zinc oxide 20.6 % topical ointment (Calmoseptine) 1 applic topical TID skin protectant 05/17/22 [History Last Taken Unknown] Allergy/AdvReac Type Severity Reaction Status Date / Time cefdinir [From Omnicef] Allergy Rash Verified 05/03/22 14:38 Family History Father Heart disease Mother Breast cancer Brother COPD (chronic obstructive pulmonary disease) Surgical History History of angioplasty S/P TURP Social History household members: spouse current occupational status: retired current occupation: [employer] Smoking Status: Former smoker Tobacco: How many years used: 15 how long ago did patient quit smokin years alcohol intake: former details: socially substance use type: does not use ROS ROS Narrative Patient was seen with his , he suffers from dementia with poor recent memory recall. Constitutional Constitutional: Reports malaise and weight loss; Denies fever(s) or night sweats Eyes Eyes: Reports systems reviewed and no addt'l complaints, except as documented ENT HEENT: Denies bleeding gums, epistaxis or mouth lesions Cardiovascular Cardiovascular: Reports systems reviewed and no addt'l complaints, except as documented; Denies chest pain, dyspnea or edema Respiratory/Chest Respiratory/Chest: Reports systems reviewed and no addt'l complaints, except as documented; Denies cough, dyspnea, hemoptysis or wheezing Gastrointestinal Gastrointestinal: Reports systems reviewed and no addt'l complaints, except as documented and heartburn; Denies hematochezia or melena Genitourinary Genitourinary: Reports systems reviewed and no addt'l complaints, except as documented; Denies hematuria Psychiatric Psychiatric: Reports systems reviewed and no addt'l complaints, except as documented Hematologic/Lymphatic Hematologic/Lymphatic: Reports systems reviewed and no addt'l complaints, except as documented and easy bruising; Denies lymphadenopathy Allergic/Immunologic Allergic/Immunologic: Reports systems reviewed and no addt'l complaints, except as documented Physical Exam Const alert General Appearance: cooperative HEENT normocephalic Eyes Eyes Narrative: wears glasses Neck supple Resp normal respiratory effort, normal air movement and clear to auscultation bilaterally Cardio regular rate and regular rhythm GI normal to inspection, nondistended, normoactive bowel sounds, non-tender and non-distended Extremity normal capillary refill General Extremity: Negative for edema Skin no rashes or lesions noted General Skin Exam: no breakdown Psych affect normal Appearance: appropriate Vital Signs Temperature 97.6 F L 05/18/22 15:41 Temperature Source Oral 05/18/22 15:41 Pulse Rate 61 05/18/22 15:41 Pulse Rhythm Regular 05/17/22 19:16 Pulse Strength Normal (2+) 05/17/22 19:16 Respiratory Rate 16 05/18/22 15:41 Respiratory Effort Non-Labored 05/17/22 19:16 Respiratory Depth Normal 05/17/22 19:16 Respiratory Pattern Normal 05/17/22 19:16 Blood Pressure 107/55 L 05/18/22 15:41 Blood Pressure Mean 72 05/18/22 15:41 Blood Pressure Source Monitor 05/18/22 15:41 Blood Pressure Position Supine 05/18/22 15:41 Blood Pressure Location Left Arm 05/18/22 15:41 Pulse Ox 98 05/18/22 15:41 Oxygen Delivery Method Room Air 05/18/22 15:41 Laboratory Results - last 24 hr 05/18/22 05:41: WBC 20.6 H, RBC 2.88 L, Hgb 9.2 L, Hct 29.5 L, MCV 102.4 H D, MCH 31.9, MCHC 31.2 L, RDW Std Deviation 67.4 H, RDW Coeff of Alley 17.8 H, Plt Count 23 L*, MPV TNP, Immature Gran % (Auto) 1.600 H, Neut % (Auto) 14.2 L, Lymph % (Auto) 75.3 H, Blair % (Auto) 8.7, Eos % (Auto) 0.0, Baso % (Auto) 0.2, Absolute Neuts (auto) 2.9, Absolute Lymphs (auto) 15.53 H, Nucleated RBC % 0.3, Differential Comment SCANNED, Diff Path Review May foll, Atypical Lymphocytes 2+, Platelet Estimate MKD DEC, Anisocytosis 1+, Acanthocytes (Spur) RARE 05/18/22 05:41: Sodium 134 L, Potassium 4.2, Chloride 104, Carbon Dioxide 23.0, Anion Gap 7, BUN 13, Creatinine 0.81, Estim Creat Clear Calc 57.62, Est GFR (MDRD) Af Amer 117, Est GFR (MDRD) Non-Af 97, BUN/Creatinine Ratio 16.1, Glucose 80, Calcium 8.1 L
[2022-05-18] MEDS: Atorvastatin Calcium 80 MG Tablet PO (19:32)
--- NOTE | 2022-05-18 19:49 | NURSING ---
resident and aware of positive covid on floor
--- NOTE | 2022-05-19 03:35 | EKG12_ITS ---
Test Reason : CP Blood Pressure : / mmHG Vent. Rate : 062 BPM Atrial Rate : 062 BPM P-R Int : 166 ms QRS Dur : 086 ms QT Int : 426 ms P-R-T Axes : 025 -05 002 degrees QTc Int : 432 ms Normal sinus rhythm Normal ECG When compared with ECG of 01-JUL-2020 18:22, Premature atrial complexes are no longer Present Confirmed by ASMITA CRUZ, DIOR ([id number]), graphic editor ISSA GARVIN ([id number]) on 05/23/2022 8:39:39 AM Referred By: JIM Confirmed By:DIOR TIAN MD
--- NOTE | 2022-05-19 03:36 | NURSING ---
Addendum entered by Molly Maxwell 05/19/22 06:18: RT completed EKG. No abnormalities noted. Pt resting at this time. Original Note: Pt c/o chest pain at this time. Unable to rate or characterize. Heart sounds are regular. Vital signs are as follows; (T) 98.0 F, (P) 70 Apical, (BP) 144/69, (RR) 20, SpO2 94% on room air. No other symptoms noted. Order placed for EKG and RT notified. RN aware.
[2022-05-19] MEDS: Acetaminophen 500 MG Tablet 1000 MG PO (04:29)
[2022-05-19 04:30] VITALS: BP 144/69; PULSE 70
[2022-05-19] MEDS: Metoprolol(XL)Succ 50 MG Tablet PO (04:30)
[2022-05-19] MEDS: Levothyroxine 125 MCG Tablet PO (04:30)
[2022-05-19] MEDS: Memantine Hydrochloride 5 MG Tablet PO ×2 (04:30→16:53)
[2022-05-19] MEDS: Citalopram 20 MG Tablet PO (04:30)
[2022-05-19] MEDS: Pantoprazole Sodium 40 MG Tablet PO (04:30)
[2022-05-19] MEDS: Menthol/Lanolin/Calamine/Znox 113 GM Tube 1 APPLIC TOPICAL ×3 (04:31→19:34)
[2022-05-19] MEDS: Ensure Plus High Protein 120 ML LIQUID PO ×2 (08:30→16:52)
[2022-05-19] MEDS: Aspirin E.C. 81 MG Tablet PO (08:32)
[2022-05-19 09:59] LABS: Pathologist Review Reviewed
--- NOTE | 2022-05-19 12:01 | NURSING ---
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 He stated he would like the newspaper and watching tv is fine, he does not need much. I will stop in and do extra social visit with weekly.
[2022-05-19 13:58] VITALS: BP 101/54; PULSE 64; RESP 16; TEMP 36.3; O2SAT 98
--- NOTE | 2022-05-19 15:38 | PCM.PN.DRR ---
TCU RX Drug Regimen Review Subjective: 86 YOM admitted to TCU 05/17/22 s/p hospitalization at [facility] secondary to viral gastroenteritis, with positive rotavirus on stool studies. Admitted for strengthening and rehabilitation prior to discharge home where he resides with his . Objective: Allergies cefdinir [From Omnicef] Allergy (Verified 05/03/22 14:38) Rash Current Medications Generic Name Dose Route Start Last Admin Trade Name Freq PRN Reason Stop Dose Admin Acetaminophen 1,000 mg 05/17/22 20:02 05/19/22 04:29 Acetaminophen 500 Mg Tablet PO 1,000 mg Q6H PRN PRN Administration Pain Score 1-10 Aspirin 81 mg 05/18/22 08:00 05/19/22 08:32 Aspirin E.C. 81 Mg Tablet PO 81 mg DAILYCM CLAUS Administration Atorvastatin Calcium 80 mg 05/18/22 22:00 05/18/22 19:32 Atorvastatin Calcium 80 Mg Tablet PO 80 mg QHS CLAUS Administration Calamine/Phenol 1 applic 05/17/22 22:00 05/19/22 12:56 Menthol/Lanolin/Calamine/Znox 113 Gm Tube TOPICAL 1 applic TID CLAUS Administration Protocol Citalopram Hydrobromide 20 mg 05/18/22 06:00 05/19/22 04:30 Citalopram 20 Mg Tablet PO 20 mg DAILY CLAUS Administration Levothyroxine Sodium 125 mcg 05/18/22 06:00 05/19/22 04:30 Levothyroxine 125 Mcg Tablet PO 125 mcg DAILY CLAUS Administration Magnesium Hydroxide 30 ml 05/17/22 20:02 Magnesium Hydroxide 30 Ml Udc PO X1 PRN CONSTIPATION Memantine 5 mg 05/18/22 06:00 05/19/22 04:30 Memantine Hydrochloride 5 Mg Tablet PO 5 mg BID CLAUS Administration Metoprolol Succinate 50 mg 05/18/22 06:00 05/19/22 04:30 Metoprolol(Xl)Succ 50 Mg Tablet PO 50 mg DAILY CLAUS Administration Nutritional Formula (Lactose Free) 120 ml 05/18/22 07:45 05/19/22 11:40 Ensure Plus High Protein 120 Ml Liquid PO Not Given TIDCM CLAUS Pantoprazole Sodium 40 mg 05/18/22 06:00 05/19/22 04:30 Pantoprazole Sodium 40 Mg Tablet PO 40 mg DAILY CLAUS Administration Senna/Docusate Sodium 1 tablet 05/17/22 20:02 Senna/Docusate Sodium 1 Tablet PO BID PRN CONSTIPATION Tuberculin PPD 0.1 ml 05/25/22 10:00 Tuberculin,Purif.Prot.Deriv. 50 Tu/Ml Vial ID 05/25/22 10:01 X1 ONE Problem List (Last Reviewed 05/17/22 @ 19:[address] Elver Mendez MD) Alzheimer disease (Acute) Coronary artery disease (Acute) Hypothyroidism (Acute) GERD (gastroesophageal reflux disease) (Acute) Depression (Acute) Thrombocytopenia (Acute) Hyperlipidemia (Acute) Hypertension (Chronic) Rotavirus enteritis (Acute) Debility (Acute) Dehydration (Acute) Gastroenteritis (Acute) Nausea vomiting and diarrhea (Acute) Elevated alkaline phosphatase level (Acute) Lymphocytosis (Acute) Anemia (Chronic) Vital Signs Temp Pulse Resp BP Pulse Ox O2 Del Method 97.4 F L 64 16 101/54 L 98 Room Air 05/19/22 13:58 05/19/22 13:58 05/19/22 13:58 05/19/22 13:58 05/19/22 13:58 05/19/22 13:58 Oxygen Delivery Method Room Air Weight: 60.01 kg Body Mass Index (BMI) 20.7 Sodium 134 mmol/L (136-145) L 05/18/22 05:41 Potassium 4.2 mmol/L (3.5-5.1) 05/18/22 05:41 Chloride 104 mmol/L (98-107) 05/18/22 05:41 Carbon Dioxide 23.0 mmol/L (21.0-32.0) 05/18/22 05:41 Anion Gap 7 (5-15) 05/18/22 05:41 BUN 13 mg/dL (7-18) 05/18/22 05:41 Creatinine 0.81 mg/dL (0.70-1.30) 05/18/22 05:41 Est GFR (MDRD) Af Amer 117 mL/min (>60) 05/18/22 05:41 Est GFR (MDRD) Non-Af 97 mL/min (>60) 05/18/22 05:41 BUN/Creatinine Ratio 16.1 RATIO (10-20) 05/18/22 05:41 Glucose 80 mg/dL (74-106) 05/18/22 05:41 Assessment/Plan: 1. Pain: Tylenol 1000mg PO Q6h PRN pain 1-10. Please continue to monitor for increased/decreased S/S pain, PRN medication usage. -The patient has utilized 1 dose of Tylenol since admission, with a pre-medication pain score rated 6/10 and post-medication score 0/10. It appears the patient's pain is well managed at this time. 2. CAD: Aspirin 81mg PO Daily, Lipitor 80mg PO QHS, Toprol XL 50mg PO Daily. Please continue to monitor BP (range 86-144/36-69), pulse (range 60-71), lipid panel annually or sooner if clinically indicated, S/S bleeding/bruising. Please monitor very closely for bleeding given aspirin use and low platelet counts. Please consider obtaining a lipid panel as las one was drawn 01/2018 per EMR review, thank you. 3. Hypothyroidism: Synthroid 125mcg PO Daily. Please continue to monitor for S/S hyper/hypothyroidism, TSH levels as clinically indicated (last TSH 0.96 04/2022). 4. Alzheimer: Namenda 5mg PO BID. Please continue to monitor for vivid dreams, progression of dementia symptoms. 5. GERD: Protonix 40mg PO Daily. Please continue to monitor for S/S GERD exacerbations. May also consider non-pharmacologic treatments to help minimize GERD flare-ups. 6. Thrombocytopenia/ CLL: The patient is currently being followed by hem/onc. Last platelet level was 23, last WBC was 20.6 on 05/19/22. Continue to monitor. 7. Skin Integrity: Calmoseptine topically TID. Please continue to monitor for skin redness, S/S breakdown, ulcer formation. 8. Bowel: Senna/Docusate 1 tab PO BID PRN, MOM 30ml PO x1 PRN. Please continue to monitor for increased/decreased constipation and/or diarrhea. - The patient has not used any PRN doses of medication. Last documented bowel movement was 05/18/22. Please continue to monitor and consider PRN medication if no BM >48hrs. Assessment/Plan for indications treated with psychotropic medications: 1. Depression: Citalopram 20mg PO Daily. Please consider a GDR by 10/2022 if clinically indicated, thank you. Medical chart and medication regimen reviewed. The following medication irregularities or issues were identified: 1. Lipitor: Please consider obtaining a lipid panel if clinically indicated. last lipid panel obtained per EMR review was 01/2018, thank you. Date of Note:: 05/19/22
[2022-05-19] MEDS: Atorvastatin Calcium 80 MG Tablet PO (19:29)
[2022-05-20] MEDS: Memantine Hydrochloride 5 MG Tablet PO ×2 (05:10→18:08)
[2022-05-20] MEDS: Citalopram 20 MG Tablet PO (05:10)
[2022-05-20 05:11] VITALS: BP 124/65; PULSE 78
[2022-05-20] MEDS: Levothyroxine 125 MCG Tablet PO (05:11)
[2022-05-20] MEDS: Metoprolol(XL)Succ 50 MG Tablet PO (05:11)
[2022-05-20] MEDS: Pantoprazole Sodium 40 MG Tablet PO (05:11)
[2022-05-20] MEDS: Menthol/Lanolin/Calamine/Znox 113 GM Tube 1 APPLIC TOPICAL ×3 (05:16→21:45)
[2022-05-20 06:20] LABS: Absolute Lymphocyte Count 12.64 X10^3/uL (0.83-4.51); Absolute Neutrophil Count 3.3 X10^3/uL (2.0-7.7); Basophil# 0.02 X10^3/uL; Basophil% 0.1 % (0-1); Eosinophil# 0.01 X10^3/uL; Eosinophils% 0.1 % (0-5); Hematocrit 27.9 % (40-54); Lymphocyte # 12.64 X10^3/ul (0.83-4.51); Lymphocyte % 69.3 % (19-41); Mean Corp Hgb Conc 32.3 g/dL (32-36); Mean Corpuscular Hgb 30.9 pg (27.0-32.0); Mean Corpuscular Volume 95.9 fL (80-94); Monocyte# 1.92 X10^3/uL; Monocyte% 10.5 % (0-10); NRBC Flagged by Analyzer 0.4 % (0-5); Neutrophil # 3.31 X10^3/uL (2.7-7.7); Neutrophil % 18.1 % (47-70); POSITIVE COUNT YES; POSITIVE DIFFERENTIAL YES; POSITIVE MORPHOLOGY YES; RBC Distribution Width CV 18.4 % (11.6-14.6); RBC Distribution Width SD 64.3 fl (35.1-43.9); Red Blood Count 2.91 M/mm3 (4.6-6.2); White Blood Count 18.2 K/mm3 (4.4-11.0)
[2022-05-20 06:24] LABS: Differential Indicated SCAN CRITERIA MET; Platelet Count 33 K/mm3 (150-450)
[2022-05-20 07:16] LABS: Atypical Lymphocyte 2+ %; Differential Comment SCANNED; Platelet Estimate MKD DEC (ADEQ)
--- NOTE | 2022-05-20 07:34 | NURSING ---
Lab [place] [id number]. This value has increased from the previous platelet count.
[2022-05-20] MEDS: Aspirin E.C. 81 MG Tablet PO (08:16)
[2022-05-20] MEDS: Ensure Plus High Protein 120 ML LIQUID PO ×3 (08:18→18:07)
[2022-05-20 10:50] VITALS: PULSE 81; RESP 16; O2SAT 98
--- NOTE | 2022-05-20 11:20 | NURSING ---
GOT PT DRESSED FOR DAY WITH CLOTHES FAMILY BROUGHT IN. PT STATED HE FELT BETTER BUT BACK WAS ITCHY. WASHED AND LOTION BACK. RED RASH TO PT BACK,WILL NOTIFY .
[2022-05-20 14:00] VITALS: BP 97/54; PULSE 90; RESP 18; TEMP 36.5; O2SAT 97
[2022-05-20] MEDS: Atorvastatin Calcium 80 MG Tablet PO (21:43)
[2022-05-21 04:20] LABS: Absolute Lymphocyte Count 11.74 X10^3/uL (0.83-4.51); Absolute Neutrophil Count 2.9 X10^3/uL (2.0-7.7); Basophil# 0.02 X10^3/uL; Basophil% 0.1 % (0-1); Eosinophil# 0.01 X10^3/uL; Eosinophils% 0.1 % (0-5); Hematocrit 26.5 % (40-54); Hemoglobin 8.6 g/dL (13.0-16.5); Lymphocyte # 11.74 X10^3/ul (0.83-4.51); Lymphocyte % 69.3 % (19-41); Mean Corp Hgb Conc 32.5 g/dL (32-36); Mean Corpuscular Hgb 31.3 pg (27.0-32.0); Mean Corpuscular Volume 96.4 fL (80-94); Monocyte# 1.86 X10^3/uL; NRBC Flagged by Analyzer 0.8 % (0-5); Neutrophil # 2.94 X10^3/uL (2.7-7.7); Neutrophil % 17.4 % (47-70); POSITIVE COUNT YES; POSITIVE DIFFERENTIAL YES; POSITIVE MORPHOLOGY YES; RBC Distribution Width CV 18.5 % (11.6-14.6); RBC Distribution Width SD 64.9 fl (35.1-43.9); Red Blood Count 2.75 M/mm3 (4.6-6.2); White Blood Count 16.9 K/mm3 (4.4-11.0)
[2022-05-21 04:51] LABS: Differential Indicated SCAN CRITERIA MET; Platelet Count 38 K/mm3 (150-450)
[2022-05-21 05:01] VITALS: BP 99/53; PULSE 71
--- NOTE | 2022-05-21 05:04 | NURSING ---
Metoprolol held at this time d/t BP at 99/53. Will report to oncoming nurse and continue to monitor.
[2022-05-21] MEDS: Memantine Hydrochloride 5 MG Tablet PO ×2 (05:06→17:40)
[2022-05-21] MEDS: Menthol/Lanolin/Calamine/Znox 113 GM Tube 1 APPLIC TOPICAL ×3 (05:06→21:00)
[2022-05-21] MEDS: Citalopram 20 MG Tablet PO (05:06)
[2022-05-21] MEDS: Levothyroxine 125 MCG Tablet PO (05:06)
[2022-05-21] MEDS: Pantoprazole Sodium 40 MG Tablet PO (05:06)
[2022-05-21 07:05] LABS: Acanthocytes 1+; Differential Comment SCANNED; Platelet Estimate MKD DEC (ADEQ)
[2022-05-21] MEDS: Aspirin E.C. 81 MG Tablet PO (08:40)
[2022-05-21] MEDS: Ensure Plus High Protein 120 ML LIQUID PO ×3 (08:45→17:39)
[2022-05-21 08:49] VITALS: BP 104/53; PULSE 88
[2022-05-21] MEDS: Metoprolol(XL)Succ 50 MG Tablet PO (08:49)
[2022-05-21 08:52] VITALS: BP 104/53; PULSE 88
--- NOTE | 2022-05-21 11:27 | NURSING ---
PT WILL NOT EAT AND JUST STARES AT FOOD AT BREAKFAST, NEEDS TO BE ENCOURAGED AND CHECKED ON DURING THAT TIME. FAMILY IS USUALLY HERE AT LUNCH AND SUPPER TO ENCOURAGE HIM TO EAT.
[2022-05-21 14:00] VITALS: BP 103/60; PULSE 82; RESP 17; TEMP 35.9
[2022-05-21] MEDS: Hydrocortisone 2.5% Crm 1 APPLIC TOPICAL (17:16)
[2022-05-21 20:50] VITALS: PULSE 82; RESP 16; O2SAT 99
[2022-05-21] MEDS: Atorvastatin Calcium 80 MG Tablet PO (20:57)
[2022-05-22 03:49] LABS: Absolute Lymphocyte Count 13.37 X10^3/uL (0.83-4.51); Absolute Neutrophil Count 3.8 X10^3/uL (2.0-7.7); Basophil# 0.06 X10^3/uL; Basophil% 0.3 % (0-1); Eosinophil# 0.02 X10^3/uL; Eosinophils% 0.1 % (0-5); Hematocrit 31.2 % (40-54); Hemoglobin 9.8 g/dL (13.0-16.5); Lymphocyte # 13.37 X10^3/ul (0.83-4.51); Lymphocyte % 68.7 % (19-41); Mean Corp Hgb Conc 31.4 g/dL (32-36); Mean Corpuscular Hgb 30.8 pg (27.0-32.0); Mean Corpuscular Volume 98.1 fL (80-94); Monocyte# 1.72 X10^3/uL; Monocyte% 8.8 % (0-10); NRBC Flagged by Analyzer 0.6 % (0-5); Neutrophil # 3.84 X10^3/uL (2.7-7.7); Neutrophil % 19.8 % (47-70); POSITIVE COUNT YES; POSITIVE DIFFERENTIAL YES; POSITIVE MORPHOLOGY YES; RBC Distribution Width CV 18.7 % (11.6-14.6); RBC Distribution Width SD 67.6 fl (35.1-43.9); Red Blood Count 3.18 M/mm3 (4.6-6.2); White Blood Count 19.5 K/mm3 (4.4-11.0)
[2022-05-22 03:51] LABS: Differential Indicated SCAN CRITERIA MET
[2022-05-22 03:52] LABS: Platelet Count 48 K/mm3 (150-450)
--- NOTE | 2022-05-22 04:00 | NURSING ---
Upon entering pt , pt had blood coming out of his L nostril and dripping down his chin on to the floor. Blood cleaned up. Clotting noted at the base of L nostril. Pt used mouth wash to rid blood that had dripped into his mouth. Pt sitting up in bed to help prevent bleeding into mouth. BP 97/58, P 88, Sp02 96%. Denies light headedness, nausea, and pain.
[2022-05-22 04:20] LABS: Differential Comment SCANNED
--- NOTE | 2022-05-22 05:49 | NURSING ---
Clot still at the base of L nostril. Minimal blood occasionally still drips from nostril.
[2022-05-22 06:33] VITALS: BP 101/62; PULSE 88
[2022-05-22] MEDS: Levothyroxine 125 MCG Tablet PO (06:33)
[2022-05-22] MEDS: Metoprolol(XL)Succ 50 MG Tablet PO (06:33)
[2022-05-22] MEDS: Citalopram 20 MG Tablet PO (06:33)
[2022-05-22] MEDS: Memantine Hydrochloride 5 MG Tablet PO ×2 (06:33→16:59)
[2022-05-22] MEDS: Pantoprazole Sodium 40 MG Tablet PO (06:34)
[2022-05-22 10:00] VITALS: PULSE 93; RESP 16; O2SAT 96
[2022-05-22] MEDS: Ensure Plus High Protein 120 ML LIQUID PO ×3 (10:22→16:58)
[2022-05-22] MEDS: Oxymetazoline 0.05% 1 SPRAY SPRAY.BTL NASAL (10:22)
[2022-05-22] MEDS: Menthol/Lanolin/Calamine/Znox 113 GM Tube 1 APPLIC TOPICAL ×3 (10:23→21:25)
[2022-05-22 14:00] VITALS: BP 98/57; PULSE 86; RESP 16; TEMP 36.3; O2SAT 96
--- NOTE | 2022-05-22 14:33 | NURSING ---
notified daughter of staff member had covid
--- NOTE | 2022-05-22 14:35 | NURSING ---
notified that staff member tested positive for covid
--- NOTE | 2022-05-22 16:23 | NURSING ---
Patient agreed to the moderna booster and ordered.
[2022-05-22] MEDS: Acetaminophen 500 MG Tablet 1000 MG PO (16:57)
[2022-05-22] MEDS: Atorvastatin Calcium 80 MG Tablet PO (21:19)
--- NOTE | 2022-05-22 23:01 | NURSING ---
Patient's nose continues to bleed at times. Clot still noted in left nostril. Appt with ENT scheduled for in the morning. Will continue to monitor.
[2022-05-23 05:51] VITALS: BP 109/62; PULSE 83
[2022-05-23] MEDS: Memantine Hydrochloride 5 MG Tablet PO ×2 (05:51→17:03)
[2022-05-23] MEDS: Levothyroxine 125 MCG Tablet PO (05:51)
[2022-05-23] MEDS: Metoprolol(XL)Succ 50 MG Tablet PO (05:51)
[2022-05-23] MEDS: Pantoprazole Sodium 40 MG Tablet PO (05:51)
[2022-05-23] MEDS: Citalopram 20 MG Tablet PO (05:51)
[2022-05-23] MEDS: Menthol/Lanolin/Calamine/Znox 113 GM Tube 1 APPLIC TOPICAL ×3 (05:55→22:10)
[2022-05-23] MEDS: Ensure Plus High Protein 120 ML LIQUID PO ×3 (07:46→17:03)
--- NOTE | 2022-05-23 07:56 | NURSING ---
Addendum entered by Yvette Barrett 05/23/22 09:56: R' BACK FROM APPT. RESTING IN BED. Original Note: R' LEAVING AT THIS TIME WITH FAMILY FOR APPT.
--- NOTE | 2022-05-23 10:24 | NURSING ---
R' BACK FROM APPT. CALLED [facility] TO VERIFY IF THERE WERE ANY ORDERS. STATED NOSE BLEED WAS CAUTERIZED, NO NEW ORDERS OR FOLLOW UP.
[2022-05-23] MEDS: Acetaminophen 500 MG Tablet 1000 MG PO ×2 (11:24→19:40)
[2022-05-23 12:27] LABS: Pathologist Review Reviewed
[2022-05-23 12:28] LABS: Pathologist Review Reviewed
[2022-05-23 12:28] LABS: Pathologist Review Reviewed
[2022-05-23 14:00] VITALS: BP 106/56; PULSE 89; RESP 18; TEMP 36.3; O2SAT 94
[2022-05-23] MEDS: Atorvastatin Calcium 80 MG Tablet PO (19:40)
[2022-05-23 20:00] VITALS: PULSE 90; RESP 16; O2SAT 96
--- NOTE | 2022-05-23 20:09 | NURSING ---
Patient c/o generalized aching. Received Moderna vacine in left deltoid today. PRN Tylenol administered. Will continue to monitor.
[2022-05-24] MEDS: Citalopram 20 MG Tablet PO (05:11)
[2022-05-24] MEDS: Memantine Hydrochloride 5 MG Tablet PO ×2 (05:11→17:12)
[2022-05-24 05:12] VITALS: BP 103/56; PULSE 83
[2022-05-24] MEDS: Metoprolol(XL)Succ 50 MG Tablet PO (05:12)
[2022-05-24] MEDS: Pantoprazole Sodium 40 MG Tablet PO (05:12)
[2022-05-24] MEDS: Levothyroxine 125 MCG Tablet PO (05:12)
[2022-05-24] MEDS: Menthol/Lanolin/Calamine/Znox 113 GM Tube 1 APPLIC TOPICAL ×3 (05:17→19:52)
--- NOTE | 2022-05-24 08:25 | NURSING ---
Histology Technologist Note; MDS Complete
[2022-05-24] MEDS: Acetaminophen 500 MG Tablet 1000 MG PO ×2 (08:29→19:48)
[2022-05-24] MEDS: Ensure Plus High Protein 120 ML LIQUID PO ×3 (08:29→17:11)
--- NOTE | 2022-05-24 08:35 | NURSING ---
PER CALL FROM PHARMACY, ARTHRITIS PAIN CREAM NOT IN HOSPITAL AT THIS TIME AND HOPEFULLY WILL HAVE TOMORROW 05/25/22. RN AWARE
--- NOTE | 2022-05-24 10:50 | CASEMGMT ---
Addendum entered by Kika Jade 05/25/22 09:53: meeting with Palliative this date at 1430 Original Note: Social Work IDT met with patient and dtr for care plan meeting. Discussed patient's progress in PT/OT/SN. Educated to Medicare benefit. Encouraged to contact secondary insurance to ensure copay coverage. Pt's goal is to return home with . Offered therapy family training. Private Inquiry Agent and this worker educated to Remeron medication, if dr agreeable to recommendation. Family agreeable. SW spoke with Dr about palliative appropriateness. Dr agrees to referral. Educated family to [facility] Palliative services. Family agreeable. Educated to skilled HHC at [facility]. Offered options for nonskilled REGULATORY TECHNICIAN or SNF/AL options, if does not feel she is able to care for pt at home. Referral emailed to [facility] Palliative. SW to continue to follow. MALENA Hurley INSURANCE RISK ANALYST
--- NOTE | 2022-05-24 11:06 | NURSING ---
PER REPORT, DO NOT DO COVID SWAB AT THIS TIME DUE TO PT HAVING NOSE BLEED AND HAVING TO GO TO SEE A ENT AND HAVING IT CAUTERIZED. WILL DO SWAB AT A LATER DATE WHEN ITS OK. RN AWARE.
--- NOTE | 2022-05-24 11:28 | CASEMGMT ---
Social Work Multiple attempts to complete MDS assessment. Pt is asleep and unable to be aroused. Pt limited in cognition d/t dx of Alzheimer's. Staff assessment completed. Kika Jade, IT SECURITY PROJECT MANAGER BOTANY TEACHER
[2022-05-24 11:30] VITALS: PULSE 81; RESP 16; O2SAT 93
[2022-05-24] MEDS: Hydrocortisone 2.5% Crm 1 APPLIC TOPICAL (11:39)
--- NOTE | 2022-05-24 13:26 | NURSING ---
PT VERY TIRED AND NOT EATING WELL TODAY. PT STATED HE WAS ALSO ACHY AND JUST WANTS TO SLEEP. PRN TYLENOL WAS GIVEN. PT HAD MODERNA VACCINE BOOSTER YESTERDAY. WILL CONTINUE TO MONITOR.
[2022-05-24 14:00] VITALS: BP 97/53; PULSE 78; RESP 17; TEMP 36.1; O2SAT 96
[2022-05-24] MEDS: Mirtazapine 15 MG Tablet 7.5 MG PO (19:47)
[2022-05-24] MEDS: Atorvastatin Calcium 80 MG Tablet PO (19:47)
[2022-05-25] MEDS: Acetaminophen 500 MG Tablet 1000 MG PO ×3 (01:52→19:51)
[2022-05-25 04:02] VITALS: BP 106/65; PULSE 68
[2022-05-25] MEDS: Metoprolol(XL)Succ 50 MG Tablet PO (04:02)
[2022-05-25] MEDS: Levothyroxine 125 MCG Tablet PO (04:02)
[2022-05-25] MEDS: Pantoprazole Sodium 40 MG Tablet PO (04:02)
[2022-05-25] MEDS: Memantine Hydrochloride 5 MG Tablet PO ×2 (04:03→17:05)
[2022-05-25] MEDS: Citalopram 20 MG Tablet PO (04:03)
[2022-05-25] MEDS: Menthol/Lanolin/Calamine/Znox 113 GM Tube 1 APPLIC TOPICAL ×3 (04:04→19:52)
[2022-05-25 05:27] LABS: Absolute Lymphocyte Count 8.56 X10^3/uL (0.83-4.51); Absolute Neutrophil Count 2.4 X10^3/uL (2.0-7.7); Basophil# 0.02 X10^3/uL; Basophil% 0.2 % (0-1); Eosinophil# 0.01 X10^3/uL; Eosinophils% 0.1 % (0-5); Hematocrit 25.9 % (40-54); Hemoglobin 8.4 g/dL (13.0-16.5); Lymphocyte # 8.56 X10^3/ul (0.83-4.51); Lymphocyte % 70.7 % (19-41); Mean Corp Hgb Conc 32.4 g/dL (32-36); Mean Corpuscular Hgb 31.7 pg (27.0-32.0); Mean Corpuscular Volume 97.7 fL (80-94); Monocyte# 0.85 X10^3/uL; NRBC Flagged by Analyzer 0.6 % (0-5); Neutrophil # 2.42 X10^3/uL (2.7-7.7); POSITIVE COUNT YES; POSITIVE DIFFERENTIAL YES; POSITIVE MORPHOLOGY YES; Platelet Count 46 K/mm3 (150-450); RBC Distribution Width CV 19.2 % (11.6-14.6); RBC Distribution Width SD 67.8 fl (35.1-43.9); Red Blood Count 2.65 M/mm3 (4.6-6.2); White Blood Count 12.1 K/mm3 (4.4-11.0)
[2022-05-25 05:41] LABS: Anion Gap 6 (5-15); BUN 27 mg/dL (7-18); BUN/Creat Ratio 27.5 RATIO (10-20); Calcium,Total 8.8 mg/dL (8.5-10.1); Chloride 104 mmol/L (98-107); Creatinine, Serum 0.98 mg/dL (0.70-1.30); EST Glomerular Filtration Rate 77 mL/min (>60); Est Glom Filt Rate - Afr Amer 93 mL/min (>60); Estimated Creatinine Clearance 46.26 ml/min; Glucose 95 mg/dL (74-106); Potassium 4.1 mmol/L (3.5-5.1); Sodium Level 136 mmol/L (136-145)
[2022-05-25 05:44] LABS: Differential Indicated SCAN CRITERIA MET
[2022-05-25 05:59] LABS: Anisocytosis 2+; Macrocytosis 1+; Platelet Estimate MKD DEC (ADEQ)
[2022-05-25 06:00] LABS: Acanthocytes RARE; Burr Cells RARE; Ovalocyte RARE
[2022-05-25] MEDS: Arthritis Pain Compound 60 CLICK TUBE TOPICAL ×2 (08:49→17:05)
[2022-05-25] MEDS: Tuberculin,Purif.prot.deriv. 50 TU/ML Vial 0.1 ML ID (11:04)
[2022-05-25] MEDS: Ensure Plus High Protein 120 ML LIQUID PO ×2 (12:53→17:10)
[2022-05-25 14:00] VITALS: BP 104/56; PULSE 84; RESP 16; TEMP 36.2; O2SAT 96
--- NOTE | 2022-05-25 14:01 | NURSING ---
PT STILL VERY TIRED TODAY REFUSING TO GET OUT OF BED. PT HAS NOT ATE MUCH EITHER. PT COMPLAINED OF HEADACHE,PRN TYLENOL GIVEN. REPOSITION PT IN BED/TURNED TO LEFT SIDE. IN ROOM. WILL CONTINUE TO MONITOR.
--- NOTE | 2022-05-25 17:04 | NURSING ---
PALLIATIVE CARE INTO TALK TO FAMILY AND PT.
[2022-05-25] MEDS: Atorvastatin Calcium 80 MG Tablet PO (19:51)
[2022-05-25] MEDS: Mirtazapine 15 MG Tablet 7.5 MG PO (19:51)
[2022-05-25 20:05] VITALS: PULSE 72; O2SAT 95
[2022-05-26] MEDS: Arthritis Pain Compound 60 CLICK TUBE TOPICAL ×2 (04:56→16:49)
[2022-05-26] MEDS: Acetaminophen 500 MG Tablet 1000 MG PO ×2 (04:57→11:23)
[2022-05-26] MEDS: Memantine Hydrochloride 5 MG Tablet PO ×2 (04:58→16:49)
[2022-05-26] MEDS: Pantoprazole Sodium 40 MG Tablet PO (04:59)
[2022-05-26] MEDS: Levothyroxine 125 MCG Tablet PO (04:59)
[2022-05-26] MEDS: Menthol/Lanolin/Calamine/Znox 113 GM Tube 1 APPLIC TOPICAL ×3 (04:59→19:49)
[2022-05-26] MEDS: Citalopram 20 MG Tablet PO (04:59)
[2022-05-26 05:00] VITALS: BP 96/47; PULSE 94; RESP 16; TEMP 36.6; O2SAT 94
[2022-05-26] MEDS: Senna/Docusate Sodium 1 Tablet PO (05:01)
[2022-05-26 05:05] VITALS: BP 96/47; PULSE 94; RESP 16; TEMP 36.6; O2SAT 94
[2022-05-26] MEDS: Ensure Plus High Protein 120 ML LIQUID PO ×3 (09:53→16:48)
[2022-05-26 11:42] LABS: Pathologist Review Reviewed
[2022-05-26 14:00] VITALS: BP 111/67; PULSE 97; RESP 18; TEMP 36.5; O2SAT 98
[2022-05-26] MEDS: oxyCODONE 5 MG Tablet PO ×2 (14:45→19:51)
[2022-05-26] MEDS: Mirtazapine 15 MG Tablet 7.5 MG PO (19:48)
[2022-05-26] MEDS: Atorvastatin Calcium 80 MG Tablet PO (19:49)
[2022-05-26 22:13] VITALS: O2SAT 97
[2022-05-27] MEDS: Citalopram 20 MG Tablet PO (04:49)
[2022-05-27] MEDS: Levothyroxine 125 MCG Tablet PO (04:49)
[2022-05-27] MEDS: Pantoprazole Sodium 40 MG Tablet PO (04:49)
[2022-05-27] MEDS: Memantine Hydrochloride 5 MG Tablet PO (04:49)
[2022-05-27] MEDS: Arthritis Pain Compound 60 CLICK TUBE TOPICAL ×2 (04:50→18:09)
[2022-05-27] MEDS: Menthol/Lanolin/Calamine/Znox 113 GM Tube 1 APPLIC TOPICAL ×3 (04:50→18:19)
[2022-05-27] MEDS: oxyCODONE 5 MG Tablet PO ×2 (04:53→10:45)
[2022-05-27] MEDS: Ensure Plus High Protein 120 ML LIQUID PO ×2 (08:19→12:17)
[2022-05-27] MEDS: Magnesium Hydroxide 30 ML UDC PO (08:25)
[2022-05-27] MEDS: Acetaminophen 500 MG Tablet 1000 MG PO (12:18)
[2022-05-27 14:00] VITALS: BP 100/53; PULSE 103; RESP 16; TEMP 36.4; O2SAT 92
[2022-05-27] MEDS: Atorvastatin Calcium 80 MG Tablet PO (20:31)
[2022-05-27] MEDS: Mirtazapine 15 MG Tablet 7.5 MG PO (20:31)
[2022-05-28] MEDS: Arthritis Pain Compound 60 CLICK TUBE TOPICAL ×2 (04:30→17:38)
[2022-05-28] MEDS: Menthol/Lanolin/Calamine/Znox 113 GM Tube 1 APPLIC TOPICAL ×3 (04:31→20:02)
[2022-05-28] MEDS: Levothyroxine 125 MCG Tablet PO (04:33)
[2022-05-28] MEDS: Pantoprazole Sodium 40 MG Tablet PO (04:33)
[2022-05-28] MEDS: Citalopram 20 MG Tablet PO (04:33)
[2022-05-28] MEDS: Memantine Hydrochloride 5 MG Tablet PO ×2 (04:33→17:39)
[2022-05-28] MEDS: Ensure Plus High Protein 120 ML LIQUID PO ×3 (07:53→17:51)
[2022-05-28 10:00] VITALS: O2SAT 94
[2022-05-28 14:00] VITALS: BP 111/63; PULSE 101; RESP 16; TEMP 36.8; O2SAT 95
[2022-05-28] MEDS: oxyCODONE 5 MG Tablet PO (17:50)
[2022-05-28] MEDS: Acetaminophen 500 MG Tablet 1000 MG PO (19:54)
[2022-05-28] MEDS: Atorvastatin Calcium 80 MG Tablet PO (19:54)
[2022-05-28] MEDS: Mirtazapine 15 MG Tablet 7.5 MG PO (19:54)
[2022-05-28 20:41] VITALS: BP 112/67; PULSE 100; RESP 16; O2SAT 93
--- NOTE | 2022-05-28 21:00 | NURSING ---
Pt has not had a BM charted since 05/22. Meal intake has been low and pt has refused several meals. Bowel sounds normal and flatulence present. Abdomen is soft, non-tender, and non-distended. Denies pain with palpation. Administered PRN Senokot and Milk of Magnesia as ordered. Pt drank 8 oz of warm prune juice as well. RN aware.
[2022-05-28] MEDS: Magnesium Hydroxide 30 ML UDC PO (21:01)
[2022-05-28] MEDS: Senna/Docusate Sodium 1 Tablet PO (21:01)
--- NOTE | 2022-05-28 21:06 | NURSING ---
05/28 (HS) Pt has not had a BM charted since 05/22. Meal intake has been low and pt has refused several meals. Bowel sounds normal and flatulence present. Abdomen is soft, non-tender, and non-distended. Denies pain with palpitation. Administered PRN senokot and milk of magnesia as ordered. Pt drank 8 oz of warm prune juice as well.
[2022-05-29] MEDS: Pantoprazole Sodium 40 MG Tablet PO (05:11)
[2022-05-29] MEDS: Memantine Hydrochloride 5 MG Tablet PO (05:11)
[2022-05-29] MEDS: Menthol/Lanolin/Calamine/Znox 113 GM Tube 1 APPLIC TOPICAL ×3 (05:11→20:11)
[2022-05-29] MEDS: Citalopram 20 MG Tablet PO (05:11)
[2022-05-29] MEDS: Levothyroxine 125 MCG Tablet PO (05:11)
[2022-05-29] MEDS: Arthritis Pain Compound 60 CLICK TUBE TOPICAL ×2 (05:12→17:09)
--- NOTE | 2022-05-29 07:45 | NURSING ---
Left vm for Kika ELIZONDO, to contact palliative care staff to coordinate care as not documentation is in the pt's chart.
[2022-05-29] MEDS: Ensure Plus High Protein 120 ML LIQUID PO ×3 (07:53→17:08)
--- NOTE | 2022-05-29 09:31 | CASEMGMT ---
Social Work Patient and met with palliative liaison 05/26 and signed for services. SW to keep palliative updated on DC date. Kika Jade, SUPERVISOR SILVERING DEPARTMENT PASTE MIXER
[2022-05-29 09:50] VITALS: PULSE 111
--- NOTE | 2022-05-29 10:19 | CASEMGMT ---
Addendum entered by Kika Jade 05/30/22 11:36: requested this worker coordinate transport. SW scheduled cot transport through [facility]. Updated [facility] Addendum entered by Kika Jade 05/29/22 15:19: requesting to speak with this worker. Presented to room and spoke with . requesting DC home. SW inquired about services for DC. Palliative/DIRECTOR BIOLOGICS/Hospice, DME needs. Answered further questions of differences between services. SW offered to have liaison return to speak with further about hospice. agreeable. SW offered to set DC 05/31 to allow time for DC planning. agreeable, stating family is assisting in moving pt's bed to the first floor. SW inquired about transport. stated her [facility] can assist and family can transport. SW spoke with [facility] health outcomes liaison and will visit in room today. - [facility] health outcomes liaison presented to this worker's office. agreed to hospice and confirmed DC 05/31. Nursing notified. Plan: DC home with 05/31, [facility] Original Note: Social Work Notified by nursing that pt has not been eating, having discoloration in skin, and overall lack of energy. SW left message with to discuss goals of care. presented to pt's room. SW spoke with in room about concerns from nursing and goals of care. would like pt to continue with treatment and see if he recovers. SW answered further questions about palliative and hospice services. will notify this worker when ready for DC/hospice. SW to continue to follow and updated nursing. MALENA HurleyW
[2022-05-29] MEDS: Acetaminophen 500 MG Tablet 1000 MG PO ×2 (11:30→20:02)
--- NOTE | 2022-05-29 11:37 | NURSING ---
No Bm since 05/23/22, resident received PRN senna and MOM last HS with no positive results, Dr. Mendez updated and N.O. SSE. This nurse performed SSE at bedside, resident tolerated well with positive medium results.
--- NOTE | 2022-05-29 13:27 | MDS.RN ---
Information for the mds was obtained from review of the clinical record, interview of resident, staff, and direct observation of resident's care.
[2022-05-29 14:00] VITALS: BP 117/63; PULSE 97; RESP 26; TEMP 35.9; O2SAT 91
--- NOTE | 2022-05-29 18:22 | DS.PCM_ITS ---
Providers Date of Admission: 05/17/22 Primary Care Physician: Dr. Yogesh Carlson, DO Consultations 05/18/22 07:41 Consult: Oncology/Hematology Routine Consulting Provider: [facility] ([facility]) Reason for Consult: CLL, Thrombocytopenia. EMERGENT Consult: No Notified: Yes Date Notified: 05/18/22 Time Notified: 11:35 Method of Notification: Verbal 05/24/22 11:04 Consult: Hospice / Palliative Care Routine Consulting Provider: [facility] Reason for Consult: PALLIATIVE - Alzheimer's, decline in ADLs, poor appetite, fatigue EMERGENT Consult: No MD Notified: Yes Date Notified: 05/24/22 Time Notified: 11:04 Method of Notification: Text Reason For Visit: ACUTE GASTROENTERITIS Diagnosis Discharge Diagnosis (1) Thrombocytopenia: Status: Acute Code(s): D69.6 - Thrombocytopenia, unspecified (2) Anemia: Status: Chronic Code(s): D64.9 - Anemia, unspecified (3) Lymphocytosis: Status: Acute Code(s): D72.820 - Lymphocytosis (symptomatic) (4) Elevated alkaline phosphatase level: Status: Acute Code(s): R74.8 - Abnormal levels of other serum enzymes (5) Nausea vomiting and diarrhea: Status: Resolved Code(s): R11.2 - Nausea with vomiting, unspecified; R19.7 - Diarrhea, unspecified (6) Gastroenteritis: Status: Resolved Code(s): K52.9 - Noninfective gastroenteritis and colitis, unspecified (7) Dehydration: Status: Resolved Code(s): E86.0 - Dehydration (8) Debility: Status: Acute Code(s): R53.81 - Other malaise (9) Rotavirus enteritis: Status: Acute Code(s): A08.0 - Rotaviral enteritis (10) Hypertension: Status: Chronic Code(s): I10 - Essential (primary) hypertension (11) Hyperlipidemia: Status: Acute Code(s): E78.5 - Hyperlipidemia, unspecified (12) Depression: Status: Acute Code(s): F32.A - Depression, unspecified (13) GERD (gastroesophageal reflux disease): Status: Acute Code(s): K21.9 - Gastro-esophageal reflux disease without esophagitis (14) Hypothyroidism: Status: Acute Code(s): E03.9 - Hypothyroidism, unspecified (15) Coronary artery disease: Status: Acute Code(s): I25.10 - Atherosclerotic heart disease of [place] coronary artery without angina pectoris (16) Alzheimer disease: Status: Acute Code(s): G30.9 - Alzheimer's disease, unspecified; F02.80 - Dementia in other diseases classified elsewhere, unspecified severity, without behavioral disturbance, psychotic disturbance, mood disturbance, and anxiety Plan 86 year old male with below past medical history hospitalized for viral gastroenteritis secondary to rotavirus, dehydration, admitted to TCU with emiliano rodriguez, here for rehabilitation, strengthening, prior to discharge home with . * Debility - PT/OT. * Pain - Tylenol 1000mg q6h prn pain (1-10). * Bowel - senna/colace 1 tablet bid prn, MOM 30ml po x 1 prn. * Adult immunization - Administer pneumonia vaccine, covid19 vaccine, flu vaccine. * DVT prophylaxis - Hold. * Coronary artery disease - Metoprolol succinate 50mg daily, Aspirin 81mg daily. * Hyperlipidemia - Atorvastatin 80mg qhs. 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 * Nutrition - Ensure Plus 120ml tidcm. * Hypothyroidism - Levothyroxine 125mcg daily. * Alzheimer Disease - Memantine 5mg bid. * Skin irritation - Calmoseptine topical tid. * GERD - Pantoprazole 40mg daily. * CLL - WBC elevated, Forward results to Dr. Ga. * Thrombocytopenia - Platelets low, Forward results to Dr. Ga. Medications at Discharge Home Medications citalopram 20 mg tablet 20 mg PO DAILY depression 11/17/16 levothyroxine 125 mcg tablet 125 mcg PO DAILY THYROID 06/30/20 acetaminophen 500 mg tablet 1,000 mg PO Q6H PRN PRN Pain Score 1-3 #0 tabs 05/29/22 mirtazapine 15 mg tablet 7.5 mg PO QHS 30 days #15 tabs 05/29/22 Hospital Course Operations None Procedures None Summary of Care Provided Minutes Spent on Discharge: 35 Hospital Course: 86 year old male with below past medical history hospitalized for viral gastroenteritis secondary to rotavirus, dehydration, admitted to TCU with debility, here for rehabilitation, strengthening, prior to discharge home with . Discharge home with 05/31/2022, [facility]. Physical Exam Const alert General Appearance: cooperative HEENT normocephalic Eyes PERRL and EOMs intact bilaterally Neck supple, no JVD and no carotid bruits Resp normal respiratory effort, normal air movement and clear to auscultation bilaterally Cardio regular rate and regular rhythm GI normal to inspection, nondistended, normoactive bowel sounds, non-tender and non-distended Extremity normal capillary refill General Extremity: Negative for edema Skin no rashes or lesions noted General Skin Exam: no breakdown Psych affect normal Appearance: appropriate Weight / BMI Weight Weight: 58.287 kg Body Mass Index (BMI) 20.7 ABG / Lab / Microbiology Data Result Diagrams: 05/25/22 04:45 05/25/22 04:45 Microbiology: Microbiology 05/21/22 05:13 Nasal Secretion SARS-CoV-2 Antigen (Rapid) - Final 05/19/22 07:00 Nasal Secretion SARS-CoV-2 Antigen (Rapid) - Final D/C Instructions Discharge Diet: No restrictions Discharge Activity: Return to Normal Activity, May Shower and Use Walker Weight Bearing Status: Weight bearing as tolerated Call your doctor if you observe: Fever of 101 or Higher, Inability to urinate, Inability to have a bowel movement, Shortness of breath, Dizziness, Fainting spe lls, Swelling in the ankles, Chest pain and Uncontrolled pain Additional Instructions: Discharge home with 05/31/2022, [facility]. Please Follow Up With: jil ent When: N/A. Meaningful Use Info Meaningful Use Diagnoses (Choose all that apply): None applicable Discharge Plan Admission Admit Date/Time: 05/17/22 19:00 Primary Reason for Your Visit: Debility. Attending Provider: Elver Mendez Chi Primary Care Provider: Yogesh Carlson Consulting Providers: David Cross ; Parveen Barba ; Cintia Ga ; John Valentin ; Jack Bassett ; Dat Louise ; Humphrey Roth ; Bettye Rivas WEIGHT TRAINER ; Letitia Abdullahi ; David Gamez ; Cady Wright ; Maryjo Erwin ; Tawnya Carlson WEIGHT TRAINER Instructions Additional Instructions / Restrictions: Discharge home with 05/31/2022, [facility]. Discharge Orders/Prescriptions Prescriptions: New acetaminophen 500 mg Tablet 1,000 mg PO Q6H PRN PRN (Reason: Pain Score 1-3) Qty: 0 0RF mirtazapine 15 mg Tablet 7.5 mg PO QHS 30 Days Qty: 15 0RF Continued citalopram 20 MG tablet 20 mg PO DAILY Label Comments: depression levothyroxine 125 MCG tablet 125 mcg PO DAILY Label Comments: TAKE 1 TABLET BY MOUTH ONCE DAILY Discontinued atorvastatin 80 MG tablet 80 mg PO DAILY Label Comments: cholesterol omeprazole 40 MG capsule 40 mg PO DAILY Label Comments: reflux metoprolol succinate 50 MG tablet 50 mg PO DAILY aspirin 81 MG tablet 81 mg PO DAILY@0800 memantine 5 mg tablet 5 mg PO BID menthol-zinc oxide [Calmoseptine] 0.44-20.6 % ointment 1 applic topical TID Protocol: *Topical Application Instructions APPLICATION INSTRUCTIONS: scrotum/groin/rectal areas Ensure Plus High Protein 0.08 gram-1.5 kcal/mL liquid 120 ml PO TIDCM Referrals / Follow Up: Yogesh Carlson DO [Primary Care Provider] - Disposition Disposition (needs filled in before D/C Order can be placed): Hospice in Home
[2022-05-29] MEDS: Atorvastatin Calcium 80 MG Tablet PO (20:02)
[2022-05-29] MEDS: Mirtazapine 15 MG Tablet 7.5 MG PO (20:03)
[2022-05-30] MEDS: Memantine Hydrochloride 5 MG Tablet PO ×2 (05:50→17:59)
[2022-05-30] MEDS: Pantoprazole Sodium 40 MG Tablet PO (05:50)
[2022-05-30] MEDS: Citalopram 20 MG Tablet PO (05:50)
[2022-05-30] MEDS: Arthritis Pain Compound 60 CLICK TUBE TOPICAL ×2 (05:50→18:00)
[2022-05-30] MEDS: Levothyroxine 125 MCG Tablet PO (05:50)
[2022-05-30] MEDS: Acetaminophen 500 MG Tablet 1000 MG PO (05:52)
[2022-05-30] MEDS: Menthol/Lanolin/Calamine/Znox 113 GM Tube 1 APPLIC TOPICAL ×3 (06:00→19:50)
[2022-05-30] MEDS: Ensure Plus High Protein 120 ML LIQUID PO ×3 (07:49→17:58)
[2022-05-30] MEDS: Aspirin E.C. 81 MG Tablet PO (08:08)
[2022-05-30 13:47] VITALS: BP 114/67; PULSE 117; RESP 16; TEMP 36.5; O2SAT 96
[2022-05-30 14:17] VITALS: PULSE 108
[2022-05-30] MEDS: Atorvastatin Calcium 80 MG Tablet PO (19:46)
[2022-05-30] MEDS: Mirtazapine 15 MG Tablet 7.5 MG PO (19:46)
[2022-05-30] MEDS: oxyCODONE 5 MG Tablet PO (20:35)
[2022-05-31] MEDS: Pantoprazole Sodium 40 MG Tablet PO (05:13)
[2022-05-31] MEDS: Levothyroxine 125 MCG Tablet PO (05:13)
[2022-05-31] MEDS: Citalopram 20 MG Tablet PO (05:13)
[2022-05-31] MEDS: Menthol/Lanolin/Calamine/Znox 113 GM Tube 1 APPLIC TOPICAL (05:13)
[2022-05-31] MEDS: Memantine Hydrochloride 5 MG Tablet PO (05:13)
[2022-05-31] MEDS: Arthritis Pain Compound 60 CLICK TUBE TOPICAL (05:16)
[2022-05-31] MEDS: Ensure Plus High Protein 120 ML LIQUID PO (07:32)
[2022-05-31] MEDS: oxyCODONE 5 MG Tablet PO (07:32)
[2022-05-31] MEDS: Aspirin E.C. 81 MG Tablet PO (07:32)
[2022-05-31 09:15] VITALS: BP 115/60; PULSE 109; RESP 18; TEMP 36.5; O2SAT 95
[2022-05-31] MEDS: Acetaminophen 500 MG Tablet 1000 MG PO (09:28)
[2022-05-31 09:41] VITALS: PULSE 109; RESP 18; O2SAT 95
--- NOTE | 2022-05-31 12:23 | CASEMGMT ---
Social Work BIMS and PHQ-9 completed for MDS assessment. Kika Jade, GLOBAL CHIEF CREATIVE OFFICER BEATER OUT
== END 2022-05-31 10:15 | disposition hospice, home (50) | DRG 392 ==
PROVIDERS: Internal Medicine Hematology & Oncology; Admitting Provider Family Medicine Geriatric Medicine; PCP Family Medicine; Visit Provider Family Medicine Geriatric Medicine
DX: A08.0 Rotaviral enteritis (principal); D69.3 Immune thrombocytopenic purpura; C91.10 Chronic lymphocytic leukemia of B-cell type not having achieved remission; E03.9 Hypothyroidism, unspecified; D64.9 Anemia, unspecified; K21.9 Gastro-esophageal reflux disease without esophagitis; F02.80 Dementia in other diseases classified elsewhere, unspecified severity, without behavioral disturbance, psychotic disturbance, mood disturbance, and anxiety; G30.9 Alzheimer's disease, unspecified; E78.00 Pure hypercholesterolemia, unspecified; I25.10 Atherosclerotic heart disease of native coronary artery without angina pectoris; N18.9 Chronic kidney disease, unspecified; I12.9 Hypertensive chronic kidney disease with stage 1 through stage 4 chronic kidney disease, or unspecified chronic kidney disease; Z79.82 Long term (current) use of aspirin; Z87.891 Personal history of nicotine dependence; Z79.899 Other long term (current) drug therapy; Z79.890 Hormone replacement therapy; F32.A Depression, unspecified; Z23 Encounter for immunization; N40.1 Benign prostatic hyperplasia with lower urinary tract symptoms; R33.8 Other retention of urine
CPT/HCPCS: 0134A; 36415; 80048; 85025; 87811; 91313; 93005; 97110; 97116; 97162; 97166; 97530; 97535; 97802; J7040